=== PATIENT | female | born 1995 | race Caucasian/White ===

== ENCOUNTER → 2016-08-17 | Outpatient (CLI) | payer OTHER ==
--- NOTE | 2016-08-17 19:31 | Diagnostic Imaging Report ---
INDICATION: Size and dates. FINDINGS: A poe gestation is in transverse position. Dimensions correlate with an age 17 weeks 2 days. Sonographic date of confinement 01/23/2017. Volume of amniotic fluid is within normal limits. There is no evidence for abruption or previa. No gross abnormality at the anatomical survey limited by stage of gestation. IMPRESSION: Transverse positioning poe viable IUP measuring 17 weeks 2 days. No abnormality demonstrated. Dictated by: Dictated on workstation # [id number]
== END ==
LOC: RAD 15:59
PROVIDERS: ATTEND Family Medicine
DX: Z34.02 Encounter for supervision of normal first pregnancy, second trimester (principal); Z3A.17 17 weeks gestation of pregnancy
CPT/HCPCS: 76805

== ENCOUNTER → 2016-09-09 | Outpatient (CLI) | payer OTHER ==
--- NOTE | 2016-09-09 18:08 | Diagnostic Imaging Report ---
INDICATION: patient, survey. COMPARISON: None. FINDINGS: Single live intrauterine fetus is seen measuring 20 weeks 5 days in size with normal interval growth since the prior study. Cervical length is normal at 3.8 cm. Amniotic fluid is qualitatively normal. Heart rate is 136 beats per minute. There is some prominence of the left renal pelvis, measuring about 5 mm. There is about 3 mm in measurement for the right renal pelvis. Spine was not well visualized. Biometrical measurements are as follows: Biparietal 4.85 cm, age 20 weeks 5 days. Head circumference 18.56 cm, age 21 weeks 0 days. Abdominal circumference 15.49 cm, age 20 weeks 5 days. Femur length 3.24 cm, age 20 weeks 1 days. Sonographic estimate age: 20 weeks 5 days. Sonographic estimated date of delivery: 01/22/2017. Estimated Weight: 356 gm (+/- 52 gm). LMP percentile: 39%. heart rate: 156 beats per minute. number: 1 of 1. IMPRESSION: Single live intrauterine fetus, measuring 20 weeks 5 days in size, with normal interval growth since the prior study. There is mild prominence of the left renal pelvis, suggest followup. The spine was not well visualized. Dictated by: Dictated on workstation # [id number]
== END ==
LOC: RAD 10:51
PROVIDERS: ATTEND Family Medicine
DX: Z36 Encounter for antenatal screening of mother (principal); Z3A.20 20 weeks gestation of pregnancy
CPT/HCPCS: 76805

== ENCOUNTER → 2016-10-12 | Outpatient (CLI) | payer OTHER, MEDICAID ==
--- NOTE | 2016-10-12 15:32 | Diagnostic Imaging Report ---
INDICATION: Followup spine and renal pelvis. TECHNIQUE: Multiple real-time grayscale images were obtained over the gravid uterus. COMPARISON: 09/09/2016 FINDINGS: The heart rate is 153 beats per minute. The placenta is anterior. No placenta previa. The amniotic fluid appears adequate. The spine appears normal. The renal pelvis on the left side has AP dimension of 6 mm and on the right side AP dimension of 4 mm. IMPRESSION: The spine appears normal. There is minimal prominence of the renal pelvis particularly on the left side within normal limits however. Dictated by: Dictated on workstation # [id number]
== END ==
LOC: RAD 13:42
PROVIDERS: ATTEND Family Medicine
DX: Z36 Encounter for antenatal screening of mother (principal); Z3A.00 Weeks of gestation of pregnancy not specified
CPT/HCPCS: 76816

== ENCOUNTER 2017-01-26 06:55 | Inpatient (IN) | payer OTHER, MEDICAID ==
[2017-01-26] VITALS (25 sets, daily range): BP systolic 123–154; BP diastolic 63–121
[~2017-01-26] VITALS: Ht 160 cm; Wt 68.5 kg
[2017-01-26 08:22] LABS: KETONES,URINE 4+ (NEGATIVE); PROTEIN,URINE 2+ (NEGATIVE); UROBILINOGEN,URINE 8 MG/DL (NORMAL)
--- OUTSIDE RECORDS SUMMARY | 2017-01-26 08:23 | XMS REPORT ---
Author Author RENATA FARRAR [facility] Address [address] [place] [address] Care Team Providers Care Research Clerk Name Role Phone RENATA FARRAR Unavailable PROBLEMS Type Condition ICD9-CM Code [id number] Code Onset Dates Condition Status SNOMED Code Problem Encounter for dental examination and cleaning without abnormal findings Z01.20 Active [id number] ALLERGIES No Information SOCIAL HISTORY Never Assessed PLAN OF CARE VITAL SIGNS MEDICATIONS Unknown Medications RESULTS Name Result Date Reference Range TEST, URINE (IN HOUSE) 2016-07-23 RESULTS POSITIVE Lot # [id number] Control + Exp date 09/2017 PROCEDURES Procedure Date Ordered Result Body Site URINE TEST July 23, 2016 IMMUNIZATIONS No Known Immunizations MEDICAL (GENERAL) HISTORY Type Description Date Medical History denies Medical History due date 02/14/2017
--- OUTSIDE RECORDS SUMMARY | 2017-01-26 08:23 | XMS REPORT ---
Author Author LILY KENNEDY [facility] Address [address] [place] [address] Care Team Providers Care Representative Personal Service Name Role Phone LILY KENNEDY Unavailable PROBLEMS Type Condition ICD9-CM Code [id number]-UB Code Onset Dates Condition Status SNOMED Code Problem Encounter for dental examination and cleaning without abnormal findings Z01.20 Active [id number] ALLERGIES No Information SOCIAL HISTORY Never Assessed PLAN OF CARE VITAL SIGNS MEDICATIONS Unknown Medications RESULTS No Results PROCEDURES No Known procedures IMMUNIZATIONS No Known Immunizations MEDICAL (GENERAL) HISTORY Type Description Date Medical History denies Medical History due date 02/14/2017
--- OUTSIDE RECORDS SUMMARY | 2017-01-26 08:23 | XMS REPORT ---
Author Author LILY KENNEDY [facility] Address [address] [place] [address] Care Team Providers Care Railroad Accountant Name Role Phone LILY KENNEDY Unavailable PROBLEMS Type Condition ICD9-CM Code RGC50-LC Code Onset Dates Condition Status SNOMED Code Problem Encounter for dental examination and cleaning without abnormal findings Z01.20 Active [id number] ALLERGIES No Information SOCIAL HISTORY Never Assessed PLAN OF CARE VITAL SIGNS MEDICATIONS Unknown Medications RESULTS No Results PROCEDURES No Known procedures IMMUNIZATIONS No Known Immunizations MEDICAL (GENERAL) HISTORY Type Description Date Medical History denies Medical History due date 02/14/2017
--- OUTSIDE RECORDS SUMMARY | 2017-01-26 08:23 | XMS REPORT ---
Author Author LILY KENNEDY [facility] Address [address] [place] [address] Care Team Providers Care Train Brake Operator Name Role Phone LILY KENNEDY Unavailable PROBLEMS Type Condition ICD9-CM Code ACC02-ST Code Onset Dates Condition Status SNOMED Code Problem Encounter for dental examination and cleaning without abnormal findings Z01.20 Active [id number] ALLERGIES No Information SOCIAL HISTORY Never Assessed PLAN OF CARE Activity Details Follow Up 4 Weeks Reason: VITAL SIGNS Height 62 in 2016-08-04 Weight 124 lbs 2016-08-04 Temperature 98.2 degrees Fahrenheit 2016-08-04 Heart Rate 92 bpm 2016-08-04 Respiratory Rate 18 2016-08-04 BMI 22.68 kg/m2 2016-08-04 Blood pressure systolic 115 mmHg 2016-08-04 Blood pressure diastolic 68 mmHg 2016-08-04 MEDICATIONS Unknown Medications RESULTS Name Result Date Reference Range TSH () 2016-08-04 TSH 1.970 0.450-4.500 CBC 2016-08-04 WBC 8.2 3.4-10.8 RBC 4.60 3.77-5.28 Hemoglobin 13.7 11.1-15.9 Hematocrit 41.3 34.0-46.6 MCV 90 79-97 MCH 29.8 26.6-33.0 MCHC 33.2 31.5-35.7 RDW 14.9 12.3-15.4 Platelets 233 150-379 Neutrophils 64 Lymphs 25 Monocytes 8 Eos 3 Basos 0 Neutrophils (Absolute) 5.3 1.4-7.0 Lymphs (Absolute) 2.0 0.7-3.1 Monocytes(Absolute) 0.7 0.1-0.9 Eos (Absolute) 0.2 0.0-0.4 Baso (Absolute) 0.0 0.0-0.2 Immature Granulocytes 0 Immature Grans (Abs) 0.0 0.0-0.1 ANTIBODY SCREEN 2016-08-04 Antibody Screen Negative Negative BLOOD TYPE/RH FACTOR 2016-08-04 ABO Grouping O Rh Factor Positive RUBELLA ANTIBODIES, IgG 2016-08-04 Rubella Antibodies, IgG 3.48 Immune >0.99 CULTURE, GENITAL 2016-08-04 Genital Culture, Routine Final report Result 1 Yeast isolated. Result 2 CULTURE, URINE 2016-08-04 Urine Culture, Routine Final report Result 1 No growth GC/CHLAM PROBE (STATE) 2016-08-04 CHLAMYDIA negative GC negative TRICHOMONAS (IN HOUSE) 2016-08-04 TRICHOMONAS Negative Control + Lot # [id number] Exp date 09/10/17 URINE DRUG SCREEN (IN HOUSE) 2016-08-04 Lot # [id number] Exp date 05/02 Control + COCAINE negative AMPH negative MTD negative THC negative OPIATE negative BENZO negative PCP negative BAR negative OXY negative MAMP negative TCA negative BUP negative MDMA negative UA LONG DIP (IN HOUSE) 2016-08-04 Lot # [id number] Exp date 07/11/17 Clarity clear Color yellow Odor no GLU negative SHAN negative KET negative SG 1.020 BLO negative pH 7.0 Protein negative URO 1.0 NIT negative FRANCES negative Lot # Exp BACTERIAL VAGINOSIS (IN HOUSE) 2016-08-04 RESULTS Negative Control + Lot # [id number] Exp date 03/2017 TSH () 2016-08-04 TSH 1.970 0.450-4.500 CBC 2016-08-04 WBC 8.2 3.4-10.8 RBC 4.60 3.77-5.28 Hemoglobin 13.7 11.1-15.9 Hematocrit 41.3 34.0-46.6 MCV 90 79-97 MCH 29.8 26.6-33.0 MCHC 33.2 31.5-35.7 RDW 14.9 12.3-15.4 Platelets 233 150-379 Neutrophils 64 Lymphs 25 Monocytes 8 Eos 3 Basos 0 Neutrophils (Absolute) 5.3 1.4-7.0 Lymphs (Absolute) 2.0 0.7-3.1 Monocytes(Absolute) 0.7 0.1-0.9 Eos (Absolute) 0.2 0.0-0.4 Baso (Absolute) 0.0 0.0-0.2 Immature Granulocytes 0 Immature Grans (Abs) 0.0 0.0-0.1 ANTIBODY SCREEN 2016-08-04 Antibody Screen Negative Negative BLOOD TYPE/RH FACTOR 2016-08-04 ABO Grouping O Rh Factor Positive RUBELLA ANTIBODIES, IgG 2016-08-04 Rubella Antibodies, IgG 3.48 Immune >0.99 CULTURE, GENITAL 2016-08-04 Genital Culture, Routine Final report Result 1 Yeast isolated. Result 2 CULTURE, URINE 2016-08-04 Urine Culture, Routine Final report Result 1 No growth GC/CHLAM PROBE (STATE) 2016-08-04 CHLAMYDIA negative GC negative SYPHILIS (STATE) 2016-08-04 TRICHOMONAS (IN HOUSE) 2016-08-04 TRICHOMONAS Negative Control + Lot # [id number] Exp date 09/10/17 URINE DRUG SCREEN (IN HOUSE) 2016-08-04 Lot # [id number] Exp date 05/02 Control + COCAINE negative AMPH negative MTD negative THC negative OPIATE negative BENZO negative PCP negative BAR negative OXY negative MAMP negative TCA negative BUP negative MDMA negative UA LONG DIP (IN HOUSE) 2016-08-04 Lot # [id number] Exp date 07/11/17 Clarity clear Color yellow Odor no GLU negative SHAN negative KET negative SG 1.020 BLO negative pH 7.0 Protein negative URO 1.0 NIT negative FRANCES negative Lot # Exp HIV (STATE) 2016-08-04 HEP B SURFACE ANTIGEN (STATE) 2016-08-04 HEP B ANTIBODY negative HEP B ANTIBODY ([facility]) HEP B ANTIBODY (STATE) BACTERIAL VAGINOSIS (IN HOUSE) 2016-08-04 RESULTS Negative Control + Lot # [id number] Exp date 03/2017 TSH () 2016-08-04 TSH 1.970 0.450-4.500 CBC 2016-08-04 WBC 8.2 3.4-10.8 RBC 4.60 3.77-5.28 Hemoglobin 13.7 11.1-15.9 Hematocrit 41.3 34.0-46.6 MCV 90 79-97 MCH 29.8 26.6-33.0 MCHC 33.2 31.5-35.7 RDW 14.9 12.3-15.4 Platelets 233 150-379 Neutrophils 64 Lymphs 25 Monocytes 8 Eos 3 Basos 0 Neutrophils (Absolute) 5.3 1.4-7.0 Lymphs (Absolute) 2.0 0.7-3.1 Monocytes(Absolute) 0.7 0.1-0.9 Eos (Absolute) 0.2 0.0-0.4 Baso (Absolute) 0.0 0.0-0.2 Immature Granulocytes 0 Immature Grans (Abs) 0.0 0.0-0.1 ANTIBODY SCREEN 2016-08-04 Antibody Screen Negative Negative BLOOD TYPE/RH FACTOR 2016-08-04 ABO Grouping O Rh Factor Positive RUBELLA ANTIBODIES, IgG 2016-08-04 Rubella Antibodies, IgG 3.48 Immune >0.99 CULTURE, GENITAL 2016-08-04 Genital Culture, Routine Final report Result 1 Yeast isolated. Result 2 CULTURE, URINE 2016-08-04 Urine Culture, Routine Final report Result 1 No growth GC/CHLAM PROBE (STATE) 2016-08-04 CHLAMYDIA negative GC negative SYPHILIS (STATE) 2016-08-04 TRICHOMONAS (IN HOUSE) 2016-08-04 TRICHOMONAS Negative Control + Lot # [id number] Exp date 09/10/17 URINE DRUG SCREEN (IN HOUSE) 2016-08-04 Lot # [id number] Exp date 05/02 Control + COCAINE negative AMPH negative MTD negative THC negative OPIATE negative BENZO negative PCP negative BAR negative OXY negative MAMP negative TCA negative BUP negative MDMA negative UA LONG DIP (IN HOUSE) 2016-08-04 Lot # [id number] Exp date 07/11/17 Clarity clear Color yellow Odor no GLU negative SHAN negative KET negative SG 1.020 BLO negative pH 7.0 Protein negative URO 1.0 NIT negative FRANCES negative Lot # Exp date HIV (STATE) 2016-08-04 HEP B SURFACE ANTIGEN (STATE) 2016-08-04 HEP B ANTIBODY negative HEP B ANTIBODY ([facility]) HEP B ANTIBODY ([facility]) BACTERIAL VAGINOSIS (IN HOUSE) 2016-08-04 RESULTS Negative Control + Lot # [id number] Exp date 03/2017 PROCEDURES Procedure Date Ordered Result Body Site BLOOD TYPING, ABO August 04, 2016 BLOOD TYPING, RH (D) August 04, 2016 CULTURE, BACTERIA, OTHER August 04, 2016 COMPLETE CBC W/AUTO DIFF WBC August 04, 2016 No Charge August 04, 2016 URINE CULTURE/COLONY COUNT August 04, 2016 RUBELLA ANTIBODY August 04, 2016 MAXWELL VAG, DNA, DIR PROBE August 04, 2016 TRICHOMONAS ASSAY W/OPTIC August 04, 2016 RBC ANTIBODY SCREEN August 04, 2016 URINALYSIS, AUTO, W/O SCOPE August 04, 2016 VENIPUNCT, ROUTINE* August 04, 2016 ASSAY THYROID STIM HORMONE August 04, 2016 IMMUNIZATIONS No Known Immunizations MEDICAL (GENERAL) HISTORY Type Description Date Medical History denies Medical History due date 02/14/2017
--- OUTSIDE RECORDS SUMMARY | 2017-01-26 08:23 | XMS REPORT ---
Author Author LILY KENNEDY [facility] Address [address] [place] [address] Care Team Providers Care Stable Helper Name Role Phone LILY KENNEDY Unavailable PROBLEMS Type Condition ICD9-CM Code YVG78-DR Code Onset Dates Condition Status SNOMED Code Problem Encounter for dental examination and cleaning without abnormal findings Z01.20 Active [id number] ALLERGIES No Information SOCIAL HISTORY Never Assessed PLAN OF CARE VITAL SIGNS MEDICATIONS Unknown Medications RESULTS No Results PROCEDURES No Known procedures IMMUNIZATIONS No Known Immunizations MEDICAL (GENERAL) HISTORY Type Description Date Medical History denies Medical History due date 02/14/2017
[2017-01-26] MEDS ORDERED: D5 LR IV SOLUTION 1,000 ML IV SCH (08:31)
[2017-01-26] MEDS ORDERED: PREN1.4T2 PO (08:37)
[2017-01-26 09:23] LABS: LEUKOCYTE ESTERASE ,URINE 3+ (NEGATIVE); NITRITE,URINE POSITIVE (NEGATIVE); PH,URINE 6 (5-9)
[2017-01-26 09:29] LABS: BASOPHILS % (AUTO) 0 % (0-10); EOSINOPHILS % (AUTO) 0 % (0-10); LYMPHOCYTES # (AUTO) 1.4 X 10^3 (1.0-4.0); LYMPHOCYTES % (AUTO) 12 % (12-44); MEAN CORPUSCULAR HEMOGLOBIN 26 PG (25-34); MEAN CORPUSCULAR HGB CONC 33 G/DL (32-36); MEAN CORPUSCULAR VOLUME 80 FL (80-99); MEAN PLATELET VOLUME 10.5 FL (7.4-10.4); MONOCYTES # (AUTO) 0.9 X 10^3 (0.0-1.0); MONOCYTES % (AUTO) 8 % (0-12); NEUTROPHILS # (AUTO) 9.2 X 10^3 (1.8-7.8); NEUTROPHILS % (AUTO) 80 % (42-75); PLATELET COUNT 205 10^3/uL (130-400); RED BLOOD COUNT 3.99 10^6/uL (4.35-5.85); RED CELL DISTRIBUTION WIDTH 14.4 % (10.0-14.5); WHITE BLOOD COUNT 11.6 10^3/uL (4.3-11.0)
[2017-01-26 09:33] LABS: BILIRUBIN,URINE 2+ (NEGATIVE); WBC,URINE 50-100 /HPF
[2017-01-26] MEDS ORDERED: OXYTOCIN/NORMAL SALINE 500 ML IV SCH ×2 (10:43→16:13)
[2017-01-26] MEDS ORDERED: cefTRIAXone INJECTION 1,000 MG in NS (IVPB) 50 ML IV ONE (10:45)
[2017-01-26] MEDS ORDERED: SUFENTA 0.6MCG/ML BUPIVA 0.125 0 ML ONE (12:22)
[2017-01-26] MEDS ORDERED: LACTATED RINGERS 1,000 ML IV ONE (12:22)
[2017-01-26] MEDS ORDERED: BUPIVACAINE 0.25% 30 ML (SENSORCAINE) VIAL ONE (13:18)
[2017-01-26] MEDS ORDERED: fentaNYL INJECTION 100 MCG/2 ML AMP ONE (13:18)
[2017-01-26] MEDS ORDERED: CATHETER FLUSH 10 ML SYR IV SCH ×2 (14:00→22:00)
[2017-01-26] MEDS ORDERED: MINERAL OIL CONCENTRATE 99.9% 15 ML UDC ONE (14:03)
[2017-01-26] MEDS ORDERED: NALOXONE 0.4 MG/ML 1 ML (NARCAN) VIAL IV PRN ×2 (15:15)
[2017-01-26] MEDS ORDERED: METOCLOPRAMIDE INJ 10 MG/2 ML (REGLAN) IV PRN (15:15)
[2017-01-26] MEDS ORDERED: diphenhydrAMINE 50 MG/ML INJ (BENADRYL) IV PRN (15:15)
[2017-01-26] MEDS ORDERED: ONDANSETRON 4 MG/2 ML (SDV) Z0FRAN IV PRN (15:15)
[2017-01-26] MEDS ORDERED: WITCH HAZEL(TUCKS) 40 EA JAR TOP PRN (16:15)
[2017-01-26] MEDS ORDERED: MEASLES,MUMPS,RUBELLA 1 EA INJ SQ ONE (16:15)
[2017-01-26] MEDS ORDERED: TETANUS,DIPTH,PERTUSS P/F (BOOSTRIX) 0.5 ML VIAL IM ONE (16:15)
[2017-01-26] MEDS ORDERED: BENZOCAINE/MENTHOL (DERMOPLAST) 56 ML CAN TP PRN (16:15)
--- NOTE | 2017-01-26 16:25 | OB Labor & Delivery Record ---
Vag Delivery Note Vag Delivery Note Date of Delivery: 01/26/17 Preoperative Diagnosis: Debra Colindres is a (21 /Para 1 / , Gestational Age (wks)40.3 admitted for active labor Postoperative Diagnosis: Same Surgeon: LILY KENNEDY Life Advisor: None Anesthesia: spinal Delivery Type: Vacuum Assisted vaginal delivery Findings: Term female Viable Female , apgars 8/9, weight 8#0 Lacerations: 2nd degree perineal laceration Intact placenta with 3 vessel cord. Nuchal cord x2, body cord or shoulder dystocia Estimated Blood Loss: 325 ml Complications: variable decelerations. Thin-meconium. Condition: Stable Description of Procedure: The patient is a 21 yo G1 now P1 @ 40.3 wga who presented in active labor. She was admitted and informed consent was obtained. Her labor course was unremarkable. She progressed to complete dilatation and began to push. She was then set up for delivery. The 's head was delivered atraumatically in the LAVON position after vaccum placement for decelerations. Vacuum was placed during 2 contractions and there were no pop offs. Vacuum was then removed after delivery of head. The shoulders and remainder of the infant's body were then delivered without difficulty at 1524. Upon delivery, the head was held below the level of the perineum and the mouth and nares were bulb suctioned. The cord was doubly clamped and cut by FOB and the infant was handed off to the pediatric staff. An intact placenta with 3- vessel cord delivered via Krishna and there was found to be minimal bleeding.~ Vigorous fundal massage was performed and the fundus was found to be firm. IV oxytocin was given. Examination of the vagina and perineum revealed a 2nd laceration repaired in the usual fashion with 3-0 vicryl suture. Following the repair, sponge, instrument and needle counts were correct. Mom and baby were both in stable condition in the labor suite. Vitals - Labs Vital Signs - I&O Vital Signs Date Time Temp Pulse Resp B/P (MAP) Pulse Ox O2 Delivery O2 Flow Rate FiO2 01/26/17 11:45 102 143/72 100 01/26/17 11:30 99 14 130/80 100 01/26/17 11:00 99.4 107 14 131/80 100 01/26/17 10:00 100.5 100 18 123/79 100 01/26/17 07:15 99.0 112 16 142/88 99 Labs Laboratory Tests 01/26/17 09:00: Urine Color YELLOW, Urine Clarity SLIGHTLY CLOUDY, Urine pH 6, Urine Specific [place] 1.025H, Urine Protein 2+H, Urine Glucose (UA) NEGATIVE, Urine Ketones 4+ H, Urine Nitrite POSITIVEH, Urine Bilirubin 2+H, Urine Urobilinogen 8H, Urine Leukocyte Esterase 3+H, Urine RBC (Auto) 5+H, Urine RBC NONE, Urine WBC 50-100H , Urine Squamous Epithelial Cells 10-25H, Urine Crystals NONE, Urine Bacteria TRACE, Urine Casts NONE, Urine Mucus NEGATIVE, Urine Culture Indicated YES 01/26/17 09:21: White Blood Count 11.6H, Red Blood Count 3.99L, Hemoglobin 10.5L, Hematocrit 32L , Mean Corpuscular Volume 80, Mean Corpuscular Hemoglobin 26, Mean Corpuscular Hemoglobin Concent 33, Red Cell Distribution Width 14.4, Platelet Count 205, Mean Platelet Volume 10.5H, Neutrophils (%) (Auto) 80H, Lymphocytes (%) (Auto) 12, Monocytes (%) (Auto) 8, Eosinophils (%) (Auto) 0, Basophils (%) (Auto) 0, Neutrophils # (Auto) 9.2H, Lymphocytes # (Auto) 1.4, Monocytes # (Auto) 0.9, Eosinophils # (Auto) 0.0, Basophils # (Auto) 0.0 LILY KENNEDY MD Jan 26, 2017 16:25
[2017-01-26] MEDS: IBUPROFEN 600 MG (MOTRIN) TAB PO SCH (18:58)
[2017-01-27 00:55] VITALS: BP_SYST 121; BP_DIAS 8; BP_DIAS 80
[2017-01-27] MEDS: IBUPROFEN 600 MG (MOTRIN) TAB PO SCH ×5 (00:55→23:57)
[2017-01-27 03:34] VITALS: BP 118/73
[2017-01-27 06:09] LABS: BASOPHILS % (AUTO) 0 % (0-10); EOSINOPHILS % (AUTO) 0 % (0-10); LYMPHOCYTES # (AUTO) 1.8 X 10^3 (1.0-4.0); LYMPHOCYTES % (AUTO) 16 % (12-44); MEAN CORPUSCULAR HEMOGLOBIN 26 PG (25-34); MEAN CORPUSCULAR HGB CONC 32 G/DL (32-36); MEAN CORPUSCULAR VOLUME 81 FL (80-99); MEAN PLATELET VOLUME 11.2 FL (7.4-10.4); MONOCYTES # (AUTO) 1.3 X 10^3 (0.0-1.0); MONOCYTES % (AUTO) 12 % (0-12); NEUTROPHILS # (AUTO) 7.7 X 10^3 (1.8-7.8); NEUTROPHILS % (AUTO) 71 % (42-75); PLATELET COUNT 209 10^3/uL (130-400); RED BLOOD COUNT 2.93 10^6/uL (4.35-5.85); RED CELL DISTRIBUTION WIDTH 14.4 % (10.0-14.5); WHITE BLOOD COUNT 10.8 10^3/uL (4.3-11.0)
[2017-01-27 08:25] VITALS: BP 125/82
[2017-01-27] MEDS ORDERED: DIBUCAINE (NUPERCAINAL) 1% OINT 30 GM TOP PRN (11:15)
[2017-01-27 12:00] VITALS: BP 115/79
--- NOTE | 2017-01-27 16:47 | Anesthesia-Regional Post-Op ---
Regional Patient Condition Mental Status: Alert, Oriented x3 Circulation: Same as Pre-Op Headache: Absent Sensation: Full Recovery Motor Block: Absent Post Op Complications Complications None Follow Up Care/Instructions Patient Instructions None needed. Anesthesia/Patient Condition Patient is doing well, no complaints, stable vital signs, no apparent adverse anesthesia problems. GÓMEZ CLEARY DO Jan 27, 2017 16:47
[2017-01-27] MEDS: FERROUS SULF 325 MG (IRON) TAB PO SCH (17:54)
[2017-01-27 17:55] VITALS: BP 122/76
--- NOTE | 2017-01-27 18:44 | Progress Note (SOAP) ---
Subjective Subjective/Events-last exam Tmax 100.7. Asymptomatic. Hgb 7.7, denies dizziness, shortness of breath or pain. Ambulating without difficulty. going well per her report. Review of Systems Date Seen by Provider: Jan 27, 2017 Time Seen by Provider: 09:25 Objective Exam Last Set of Vital Signs Vital Signs Date Time Temp Pulse Resp B/P (MAP) Pulse Ox O2 Delivery O2 Flow Rate FiO2 01/27/17 17:55 99.3 84 16 122/76 98 Room Air Capillary Refill : General: Alert, No Acute Distress Lungs: Clear to Auscultation, Normal Air Movement Heart: Regular Rate, No Murmurs Psych/Mental Status: Mental Status NL, Mood NL Results/Procedures Lab Laboratory Tests 01/27/17 05:25: White Blood Count 10.8, Red Blood Count 2.93L, Hemoglobin 7.7#L, Hematocrit 24L , Mean Corpuscular Volume 81, Mean Corpuscular Hemoglobin 26, Mean Corpuscular Hemoglobin Concent 32, Red Cell Distribution Width 14.4, Platelet Count 209, Mean Platelet Volume 11.2H, Neutrophils (%) (Auto) 71, Lymphocytes (%) (Auto) 16 , Monocytes (%) (Auto) 12, Eosinophils (%) (Auto) 0, Basophils (%) (Auto) 0, Neutrophils # (Auto) 7.7, Lymphocytes # (Auto) 1.8, Monocytes # (Auto) 1.3H, Eosinophils # (Auto) 0.0, Basophils # (Auto) 0.0 Microbiology 01/26/17 Urine Culture - Preliminary, Resulted Assessment/Plan Assessment/Plan Plan s/p spontaneous vaginal delivery- routine care fever- WBC decreased and she is asymptomatic with one elevated temperature , will monitor closely asymptomatic anemia- iron BID MADAN KELLEY MD Jan 27, 2017 6:44 pm
[2017-01-27 23:57] VITALS: BP 115/72
[2017-01-28 06:50] VITALS: BP 113/64
[2017-01-28] MEDS: IBUPROFEN 600 MG (MOTRIN) TAB PO SCH ×2 (06:50→13:04)
[2017-01-28 08:58] VITALS: BP 125/72
[2017-01-28] MEDS: FERROUS SULF 325 MG (IRON) TAB PO SCH (09:00)
[2017-01-28] MEDS ORDERED: DOCU100C37 PO (13:25)
[2017-01-28] MEDS ORDERED: IBUP-1773 PO (13:25)
[2017-01-28] MEDS ORDERED: FERR-74 PO (13:25)
--- NOTE | 2017-01-28 13:27 | Discharge Instructions ---
Discharge Inst-Women's Serv Depart Medications New, Converted or Re-Newed RX: Transmitted to Pharmacy New Medications: Docusate Sodium (Docusate Sodium) 100 Mg Capsule 100 MG PO DAILY, #30 CAP 0 Refills Ferrous Sulfate (Ferrous Sulfate) 325 Mg Tablet 325 MG PO BID WITH MEALS, #60 TAB 0 Refills Ibuprofen (Ibuprofen) 600 Mg Tablet 600 MG PO Q6H PRN for PAIN-MILD TO MODERATE, #60 TAB 0 Refills Continued Medications: Comb No.42/Folic Acid (Prena1 Chew Tablet) 1.4 Mg Tab.ch.bph 1.4 MG PO DAILY Follow Up/Instructions Goal/Follow Up: Follow up with Dr. Ross in 6 weeks for visit. Activity Activity: Activity as Tolerated (avoid strenuous activity x 6 weeks) Driving Instructions: You May Drive NO SMOKING: NO SMOKING Diet Discharge Diet: No Restrictions Symptoms to Report to : Swelling Increased, Bleeding Excessive, Pain/ Pressure in Chest, Vaginal Bleeding Increase, Cramps in Feet or Legs, Vaginal Discharge Foul, Dizziness/Fainting, Shortness of Breath For Any Problems or Questions: Contact Your Physician Copies To 1: LILY ROSS MD, BETHANY N MD Jan 28, 2017 13:27
--- NOTE | 2017-01-28 13:28 | Discharge Summary ---
Diagnosis/Chief Complaint Date of Admission Jan 26, 2017 at 7:55 am Date of Discharge Jan 28, 2017 Admission Diagnosis Admission Diagnosis Term intrauterine at 39 weeks Active labor Discharge Diagnosis s/p vacuum assisted vaginal delivery with second degree laceration repair- course remarkable for low fever asymptomatic with one elevated temp after delivery, resolved with no intervention and afebrile > 24 hours before d/c anemia, asymptomatic- significant anemia (hgb 7.7), sent with iron sulfate BID and docusate Chief Complaint/HPI Chief Complaint/HPI 21 yo G1 at 39 weeks presented to Labor and Delivery with contractions found to be in active labor. Discharge Summary-Simple/Stand Procedures Vacuum assisted vaginal delivery Discharge Physical Examination Allergies: Coded Allergies: No Known Drug Allergies (Unverified , 01/26/17) Vitals & I&Os Vital Sign - Last 12Hours Date Time Temp Pulse Resp B/P (MAP) Pulse Ox O2 Delivery O2 Flow Rate FiO2 01/28/17 08:58 98.4 97 18 125/72 98 Room Air General Appearance: Alert, No Acute Distress Respiratory: Clear to Auscultation, Normal Air Movement Cardiovascular: Regular Rate, No Murmurs Abdominal: No Tenderness, Other (fundus firm below umbilicus) Neuro: Normal Speech Psych/Mental Status: Mental Status NL Hospital Course See final discharge diagnosis. Labs Laboratory Tests Test 01/27/17 05:25 Range/Units White Blood Count 10.8 4.3-11.0 10^3/uL Red Blood Count 2.93 L 4.35-5.85 10^6/uL Hemoglobin 7.7 #L 11.5-16.0 G/DL Hematocrit 24 L 35-52 % Mean Corpuscular Volume 81 80-99 FL Mean Corpuscular Hemoglobin 26 25-34 PG Mean Corpuscular Hemoglobin Concent 32 32-36 G/DL Red Cell Distribution Width 14.4 10.0-14.5 % Platelet Count 209 130-400 10^3/uL Mean Platelet Volume 11.2 H 7.4-10.4 FL Neutrophils (%) (Auto) 71 42-75 % Lymphocytes (%) (Auto) 16 12-44 % Monocytes (%) (Auto) 12 0-12 % Eosinophils (%) (Auto) 0 0-10 % Basophils (%) (Auto) 0 0-10 % Neutrophils # (Auto) 7.7 1.8-7.8 X 10^3 Lymphocytes # (Auto) 1.8 1.0-4.0 X 10^3 Monocytes # (Auto) 1.3 H 0.0-1.0 X 10^3 Eosinophils # (Auto) 0.0 0.0-0.3 10^3/uL Basophils # (Auto) 0.0 0.0-0.1 10^3/uL Discharge Instructions to patient/family Please see electronic discharge instructions given to patient. Discharge Medications Reviewed and agree with Discharge Medication list on patient's Discharge Instruction sheet Copy Copies To 1: LILY KENNEDY MD, BETHANY N MD Jan 28, 2017 1:28 pm
[2017-01-28 14:42] VITALS: BP 135/84
== END 2017-01-28 17:00 | disposition home or self-care (01) | DRG 775 ==
LOC: WSo 06:55 → LDRP 06:55 → WSo 07:54 → LDRP 07:55
PROVIDERS: ADMIT Family Medicine; ATTEND Family Medicine
PROC: 10D07Z6 Extraction of Products of Conception, Vacuum, Via Natural or Artificial Opening (ICD-10-PCS; principal; 2017-01-26)
DX: O70.1 Second degree perineal laceration during delivery (principal); O90.81 Anemia of the puerperium; D64.9 Anemia, unspecified; O69.81X0 Labor and delivery complicated by cord around neck, without compression, not applicable or unspecified; Z37.0 Single live birth; Z3A.40 40 weeks gestation of pregnancy
CPT/HCPCS: 36415; 81000; 85025; 86850; 86900; 86901; 87088; 99212

== ENCOUNTER → 2019-08-02 | Outpatient (CLI) | payer OTHER, MEDICAID ==
[~2019-08-02] MED LIST: DOCU100C37 PO; FERR325T18 PO; IBUP-1773 PO; PREN1.4T2 PO
[2019-08-02 12:45] LABS: BASOPHILS % (AUTO) 0 % (0-10); EOSINOPHILS # (AUTO) 0.1 10^3/uL (0.0-0.3); EOSINOPHILS % (AUTO) 2 % (0-10); HEMATOCRIT 27 % (35-52); HEMOGLOBIN 8.4 G/DL (11.5-16.0); LYMPHOCYTES # (AUTO) 1.9 X 10^3 (1.0-4.0); LYMPHOCYTES % (AUTO) 26 % (12-44); MEAN CORPUSCULAR HEMOGLOBIN 22 PG (25-34); MEAN CORPUSCULAR HGB CONC 31 G/DL (32-36); MEAN CORPUSCULAR VOLUME 70 FL (80-99); MEAN PLATELET VOLUME 10.1 FL (7.4-10.4); MONOCYTES # (AUTO) 0.7 X 10^3 (0.0-1.0); MONOCYTES % (AUTO) 10 % (0-12); NEUTROPHILS # (AUTO) 4.5 X 10^3 (1.8-7.8); NEUTROPHILS % (AUTO) 62 % (42-75); PLATELET COUNT 249 10^3/uL (130-400); RED CELL DISTRIBUTION WIDTH 16.5 % (10.0-14.5); WHITE BLOOD COUNT 7.2 10^3/uL (4.3-11.0)
[2019-08-02 13:04] LABS: ALANINE AMINOTRANSFERASE 10 U/L (0-55); ALBUMIN 3.1 GM/DL (3.2-4.5); ALKALINE PHOSPHATASE 322 U/L (40-136); BILIRUBIN,TOTAL 1.2 MG/DL (0.1-1.0); BUN/CREATININE RATIO 9; CALCIUM 8.5 MG/DL (8.5-10.1); CARBON DIOXIDE 20 MMOL/L (21-32); CHLORIDE 108 MMOL/L (98-107); CREATININE SERUM 0.69 MG/DL (0.60-1.30); GFR ESTIMATED > 60; GLUCOSE 75 MG/DL (70-105); POTASSIUM 4.2 MMOL/L (3.6-5.0); SODIUM 137 MMOL/L (135-145); TOTAL PROTEIN 6.2 GM/DL (6.4-8.2)
== END ==
LOC: LAB 12:20
PROVIDERS: ATTEND Family Medicine
DX: O16.3 Unspecified maternal hypertension, third trimester (principal); Z3A.00 Weeks of gestation of pregnancy not specified
CPT/HCPCS: 36415; 80053; 82570; 83615; 84156; 84550; 85025

== ENCOUNTER 2019-08-03 10:02 | Inpatient (IN) | payer OTHER, MEDICAID ==
[2019-08-03] VITALS (53 sets, daily range): BP systolic 112–151; BP diastolic 8–88
[~2019-08-03] VITALS: Ht 157.5 cm; Wt 73.8 kg
--- NOTE | 2019-08-03 10:10 | NUR ---
COLBY MUNGUIA presented to unit via ambulation from ED, accompanied by S.O., with c/o LABOR. COLBY MUNGUIA weighed, gowned, voided, and to bed. EFHM and TOCO applied, VS taken. COLBY MUNGUIA oriented to bed controls, call light, TV, heat, and A/C controls.
--- NOTE | 2019-08-03 10:15 | NUR ---
Dr Ross called for orders. already aware of pt situation as pt came from clinic.
[2019-08-03] MEDS ORDERED: OXYTOCIN PRE-MIX DRIP 500 ML IV SCH ×2 (10:27→20:26)
[2019-08-03] MEDS ORDERED: MINERAL OIL CONCENTRATE 99.9% 15 ML UDC TOP PRN (10:30)
--- NOTE | 2019-08-03 10:44 | History & Physical-OB ---
OB - Chief Complaint & HPI Date/Time Date of Admission: Date of Admission: Date seen by a Provider: August 03, 2019 Time Seen by a Provider: 10:40 Chief Complaint/History OB-Reason for Admission/Chief: Induction of Labor (PIH) Hx : 2 Hx Para: 1 Expected Date of Delivery: August 08, 2019 Gestational Age in Weeks: 39 Gestational Age in Days: 2 Indication for induction: medical complication History of Labs O+, Ab neg Rub Imm GC/Chyl neg HepB/HIV/RPR NR Normal 1 hr GTT GBS neg Allergies and Home Medications Allergies Coded Allergies: No Known Drug Allergies (Unverified , 01/26/17) Home Medications Docusate Sodium 100 Mg Capsule, 100 MG PO DAILY Prescribed by: MADAN KELLEY on 01/28/17 1325 Ferrous Sulfate 325 Mg Tablet, 325 MG PO BID WITH MEALS Prescribed by: MADAN KELLEY on 01/28/17 1325 Ibuprofen 600 Mg Tablet, 600 MG PO Q6H PRN for PAIN-MILD TO MODERATE Prescribed by: MADAN KELLEY on 01/28/17 1325 Comb No.42/Folic Acid 1.4 Mg Tab.ch.bph, 1.4 MG PO DAILY, (Reported) Patient Home Medication List Home Medication List Reviewed: Yes OB - History Hx of Present Care: Yes Ultrasounds: Normal mid trimester US Obstetrical Complications: Gestational Hypertension (Onset 1 week ago with increasing swelling) Medical Complications: None Obstetrical History Hx : 2 Hx Para: 1 Number of Living Children: 1 Delivery History Adverse Rxn to Tranfusion: No Patient Past Medical History None Social History/Family History HIV/AIDS: No Recent Infectious Disease Expo: No Sexually Transmitted Disease: No Alcohol Use: Denies Use Recreational Drug Use: No Immunizations Hepatitis A: Yes Hepatitis B: Yes Tetanus Booster (TDap): Less than 5yrs Date of Influenza Vaccine: Dec 29, 2016 Rubella: immune RPR/VDRL: Negative GBS Status: Negative HBsAG: Negative OB - Admission Exam Physical Exam HEENT: NCAT Heart: Rhythm Normal Lungs: Clear Abdomen: Gravid Cervical Dilatation: 4cm Effacement: 75% Station: 0 Membranes: Intact Accelerations: Accelerations Present Decelerations: No Decelerations Contractions on Admission: 6-10 Minutes Apart Intensity: Moderate Lyons Scoring Tool (Modified) Dilation (cm): 3-4cm (2) Effacement (%): 51-79% (2) Descent/Station: -1,0 (2) Cervix Consistency: Medium(1) Cervix Position: Middle/Mid-Position (1) Add 1 point for: Each previous vaginal delivery (1) Lyons Score: 7 Labs Laboratory Tests Test 08/03/19 10:25 Range/Units OB - Assessment/Plan/Diagnosis Assessment Assessment: induction of labor Admission Dx Induced HTN Third Trimester 39 week gestation Admission Status: Inpatient Order (span 2 midnights) Reason for Inpatient Admission: Labor Plan Plan: Induction Other Plan 24 yo @39.2 wga here for IOL for PIH Plan - AROM - Pitocin Protocol - GBS neg Copy Copies To 1: LILY KENNEDY MD, HOLLY R MD August 03, 2019 10:44
[2019-08-03] MEDS: D5 LR IV SOLUTION 1,000 ML IV SCH ×2 (10:45→18:33)
--- NOTE | 2019-08-03 10:45 | NUR ---
#20g IV to Rt. FA x1 attempt by this RN. site patent, secured with [employer]. admission labs collected from site prior to IVF's infusing. see eMar for further.
[2019-08-03 11:14] LABS: BASOPHILS % (AUTO) 0 % (0-10); EOSINOPHILS # (AUTO) 0.1 10^3/uL (0.0-0.3); EOSINOPHILS % (AUTO) 1 % (0-10); HEMATOCRIT 27 % (35-52); HEMOGLOBIN 8.4 G/DL (11.5-16.0); LYMPHOCYTES # (AUTO) 1.8 X 10^3 (1.0-4.0); LYMPHOCYTES % (AUTO) 21 % (12-44); MEAN CORPUSCULAR HEMOGLOBIN 21 PG (25-34); MEAN CORPUSCULAR HGB CONC 31 G/DL (32-36); MEAN CORPUSCULAR VOLUME 70 FL (80-99); MONOCYTES # (AUTO) 0.7 X 10^3 (0.0-1.0); MONOCYTES % (AUTO) 8 % (0-12); NEUTROPHILS # (AUTO) 5.8 X 10^3 (1.8-7.8); NEUTROPHILS % (AUTO) 69 % (42-75); PLATELET COUNT 247 10^3/uL (130-400); RED CELL DISTRIBUTION WIDTH 16.7 % (10.0-14.5); WHITE BLOOD COUNT 8.3 10^3/uL (4.3-11.0)
[2019-08-03] MEDS ORDERED: CATHETER FLUSH 10 ML SYR IV SCH ×2 (14:00→22:00)
--- NOTE | 2019-08-03 15:02 | NUR ---
notified of 8.4 Hgb.
[2019-08-03] MEDS ORDERED: fentaNYL 2 mcg/ml BUPIVA 0.125 100 ML ONE (16:57)
[2019-08-03] MEDS ORDERED: LACTATED RINGERS 1,000 ML IV ONE (16:57)
--- NOTE | 2019-08-03 16:58 | NUR ---
report given to BLAZE Foster.
[2019-08-03] MEDS ORDERED: LIDOCAINE/EPI 2% 1:200,00 (XYLOCAINE) 20 ML VIAL ONE (17:55)
[2019-08-03] MEDS ORDERED: LACTATED RINGERS 1,000 ML IV SCH (18:01)
[2019-08-03] MEDS ORDERED: METOCLOPRAMIDE INJ 10 MG/2 ML (REGLAN) IV PRN (18:15)
[2019-08-03] MEDS ORDERED: EPIDURAL (fentaNYL 2 MCG/ML BUPIVA 0.125%)100 ML BAG EPI SCH (18:15)
[2019-08-03] MEDS ORDERED: NALOXONE 0.4 MG/ML 1 ML (NARCAN) VIAL IV PRN ×2 (18:15)
[2019-08-03] MEDS ORDERED: ONDANSETRON 4 MG/2 ML (SDV) Z0FRAN IV PRN (18:15)
[2019-08-03] MEDS ORDERED: diphenhydrAMINE 50 MG/ML INJ (BENADRYL) IV PRN (18:15)
[2019-08-03] MEDS ORDERED: MISOPROSTOL 200 MCG (CYTOTEC) TABLET ONE (19:48)
--- NOTE | 2019-08-03 20:20 | NUR ---
2020: Pericare provided for pt. Bed put back together and pt. taken out of stirrups. Fundus massaged at this time. Fundus is firm and one under umbilicus. Minimal bleeding and no clots noted. 2029: Fundus massaged at this time. Fundus is firm and one under umbilicus. Minimal bleeding and no clots noted. 2044: Fundus massaged at this time. Fundus is firm and one under umbilicus. Minimal bleeding and no clots noted. 2100: Fundus massaged at this time. Fundus is firm and one under umbilicus. Minimal bleeding and no clots noted. 2129: Fundus massaged at this time. Fundus is firm and one under umbilicus. Minimal bleeding and no clots noted. 2149: Fundus massaged at this time. Fundus is firm and one under umbilicus. Minimal bleeding and no clots noted. Epidural removed at this time. Tip intact.
--- NOTE | 2019-08-03 20:26 | OB Labor & Delivery Record ---
Vag Delivery Note Vag Delivery Note Date of Delivery: 08/03/19 Preoperative Diagnosis: Debra Colindres is a (24 /Para 2 / 1, Gestational Age (wks)39.2 here for IOL for PIH Postoperative Diagnosis: Same Surgeon: LILY KENNEDY Drawing Press Operator: None Anesthesia: Epidural Delivery Type: @ 1950 Findings: Viable male , apgars 9/9, weight 4105 grams, 9#1 Lacerations: 2nd degree perineal laceration Intact placenta with 3 vessel cord. Nuchal cord x1, No body cord or shoulder dystocia Cytotec 800 mcg placed for hemorrhage prophylaxis Estimated Blood Loss: 200 ml Complications: None Condition: Stable Description of Procedure: The patient is a 24 year old female who presented for IOL for PIH. She was admitted and informed consent was obtained. Her labor course was unremarkable. She progressed to complete dilatation and began to push. She was then set up for delivery. The 's head was delivered atraumatically in the LAVON position, nuchal cord x 1 reduced after delivery of head. The shoulders and remainder of the 's body were then delivered without difficulty. Upon delivery, the head was held below the level of the perineum and the mouth and nares were bulb suctioned. The cord was doubly clamped and cut by FOB after 2 min delay and the infant was placed on maternal abdomen and attended to by the pediatric staff. An intact placenta with 3-vessel cord delivered via Krishna @ 1955 and there was found to be minimal bleeding.~ Vigorous fundal massage was performed and the fundus was found to be firm. IV oxytocin was given. Examination of the vagina and perineum revealed a 2nd degree laceration repaired in the usual fashion with 3-0 Reped suture. Following the repair, sponge, instrument and needle counts were correct. Mom and baby were both in stable condition in the labor suite. Vitals - Labs Vital Signs - I&O Vital Signs Date Time Temp Pulse Resp B/P (MAP) Pulse Ox O2 Delivery O2 Flow Rate FiO2 08/03/19 17:00 18 Room Air 08/03/19 16:53 104 18 135/79 (97) Room Air 08/03/19 16:45 104 18 135/79 (97) Room Air 08/03/19 16:30 37.1 95 18 130/76 (94) Room Air 5/22/20 16:00 99 18 129/69 (89) Room Air 08/03/19 15:45 88 18 125/72 (89) Room Air 08/03/19 15:30 88 18 125/72 (89) Room Air 08/03/19 15:15 112 18 128/78 (95) Room Air 08/03/19 15:00 114 18 132/81 (98) Room Air 08/03/19 14:45 109 18 125/69 (87) Room Air 08/03/19 14:30 103 18 139/72 (94) Room Air 08/03/19 14:15 111 18 134/86 (102) Room Air 08/03/19 14:00 98 18 134/75 (94) Room Air 08/03/19 13:45 104 18 135/86 (102) Room Air 08/03/19 13:30 37.0 96 18 135/84 (101) Room Air 08/03/19 13:15 106 18 127/86 (100) Room Air 08/03/19 13:00 101 18 122/83 (96) Room Air 08/03/19 12:45 105 18 136/81 (99) Room Air 08/03/19 12:30 100 18 129/8 (48) Room Air 08/03/19 12:15 99 18 134/87 (103) Room Air 08/03/19 12:00 95 18 123/71 (88) Room Air 08/03/19 11:45 102 18 130/82 (98) Room Air 08/03/19 11:30 102 18 125/87 (100) Room Air 08/03/19 11:15 101 18 125/84 (98) Room Air 08/03/19 11:00 37.0 106 18 98 Room Air 08/03/19 11:00 111 18 140/81 (100) Room Air 08/03/19 10:25 37.0 106 18 138/88 (105) 98 Room Air Labs Laboratory Tests 08/03/19 10:45: White Blood Count 8.3, Red Blood Count 3.91L, Hemoglobin 8.4L, Hematocrit 27L, Mean Corpuscular Volume 70L, Mean Corpuscular Hemoglobin 21L, Mean Corpuscular Hemoglobin Concent 31L, Red Cell Distribution Width 16.7H, Platelet Count 247, Mean Platelet Volume 11.0H, Neutrophils (%) (Auto) 69, Lymphocytes (%) (Auto) 21, Monocytes (%) (Auto) 8, Eosinophils (%) (Auto) 1, Basophils (%) (Auto) 0, Neutrophils # (Auto) 5.8, Lymphocytes # (Auto) 1.8, Monocytes # (Auto) 0.7, Eosinophils # (Auto) 0.1, Basophils # (Auto) 0.0 LILY KENNEDY MD August 03, 2019 20:26
[2019-08-03] MEDS ORDERED: WITCH HAZEL(TUCKS) 40 EA JAR TOP PRN (20:30)
[2019-08-03] MEDS ORDERED: BENZOCAINE/MENTHOL (DERMOPLAST) 60 ML CAN TP PRN (20:30)
--- OUTSIDE RECORDS SUMMARY | 2019-08-03 20:39 | XMS REPORT ---
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 Name Role Phone RENATA FARRAR Unavailable GAULT, LILY Unavailable GAULT, LILY Unavailable GAULT, LILY Unavailable WARREN, MADAN Unavailable GAULT, LILY Unavailable GAULT, LILY Unavailable GAULT, LILY R Unavailable GAULT, LILY Unavailable GAULT, LILY Unavailable GAULT, LILY Unavailable GAULT, LILY Unavailable GAULT, LILY Unavailable GAULT, LILY Unavailable GAULT, LILY Unavailable GAULT, LILY Unavailable GAULT, LILY Unavailable GAULT, LILY Unavailable GAULT, LILY Unavailable GAULT, LILY Unavailable GAULT, LILY Unavailable GAULT, LILY Unavailable GAULT, LILY Unavailable GAULT, LILY Unavailable GAULT, LILY Unavailable GAULT, LILY Unavailable GAULT, LILY Unavailable WARREN, MADAN Unavailable GAULT, LILY Unavailable LILY KENNEDY Unavailable LILY KENNEDY MD Unavailable Unavailable LILY KENNEDY Unavailable PCP, NONE Unavailable Unavailable Unavailable Unavailable LILY KENNEDY Unavailable Unavailable LILY KENNEDY MD Unavailable Unavailable Unavailable Unavailable Unavailable Unavailable Unavailable Unavailable Unavailable Unavailable Unavailable Unavailable Allergies Normalized Allergy Reported Date of Reaction(s) Care Provider Facility Allergy Type classification allergen Allergy Onset DA (1 source.) Unclassified No Known Drug 01-26-2017 - no inform ation LILY KENNEDY , Not Available Allergies (41706) Medications The data below is from unstructured sources Unknown Medications Unknown Medications Unknown Medications Unknown Medications Unknown Medications Unknown Medications Unknown Medications Unknown Medications Unknown Medications Unknown Medications Unknown Medications Unknown Medications Unknown Medications Unknown Medications Unknown Medications Unknown Medications Unknown Medications Unknown Medications Unknown Medications Unknown Medications Unknown Medications Unknown Medications Unknown Medications Unknown Medications Unknown Medications Unknown Medications Unknown Medications Unknown Medications Unknown Medications Unknown Medications Unknown Medications Unknown Medications Unknown Medications Unknown Medications Unknown Medications Unknown Medications Unknown Medications Unknown Medications Unknown Medications Unknown Medications Unknown Medications Unknown Medications Unknown Medications Unknown Medications Unknown Medications Unknown Medications No Known Medications No Known Medications No Known Medications No Known Medications No Known Medications No Known Medications No Known Medications No Known Medications No Known Medications No Known Medications No Known Medications No Known Medications No Known Medications No Known Medications No Known Medications No Known Medications No Known Medications No Known Medications No Known Medications No Known Medications No Known Medications No Known Medications No Known Medications No Known Medications No Known Medications No Known Medications No Known Medications No Known Medications No Known Medications No Known Medications No Known Medications No Known Medications Unknown Medications No Known Medications Problems Active Problems Problem Normalized Date Last Normalized Normalized Provider Fa cility Classification Problem(s) Recorded Problem Problem Sta tus Duration Other Anemia of the Chronic Active LILY KENNEDY Not Available complications puerperium (49435) of ; puerperium affecting management of mother (4 sources.) Past or Other Problems Problem Normalized Date Last Normalized Normalized Provider Fa cility Classification Problem(s) Recorded Problem Problem Sta tus Duration Unclassified 35 weeks no information no information LILY KENNEDY Not Available (21 sources.) gestation of (34779) Translations: [ - 35 weeks gestation of Z3A.35, - 36 weeks gestation of Z3A.36, - 37 weeks gestation of Z3A.37, - 23 weeks gestation of Z3A.23, - 19 weeks gestation of Z3A.19, - 31 weeks gestation of Z3A.31, - 39 weeks gestation of Z3A.39, - 27 weeks gestation of Z3A.27, - 40 weeks gestation of Z3A.40, - 10 weeks gestation of Z3A.10, - 38 weeks gestation of Z3A.38, 17 WEEKS GESTATION OF , 20 WEEKS GESTATION OF , - 35 weeks gestation of Z3A.35, - 36 weeks gestation of Z3A.36, - 37 weeks gestation of Z3A.37, - 23 weeks gestation of Z3A.23, - 19 weeks gestation of Z3A.19, - 31 weeks gestation of Z3A.31, - 39 weeks gestation of Z3A.39, - 27 weeks gestation of Z3A.27, - 40 weeks gestation of Z3A.40, - 10 weeks gestation of Z3A.10, - 38 weeks gestation of Z3A.38] Deficiency and Anemia, Episodic Completed LILY GAULT , Not Available other anemia unspecified (84201) (4 sources.) Umbilical cord Labor and Episodic Completed LILY GAULT , Not Available complication delivery (54347) (4 sources.) complicated by cord around neck, without compression, not applicable or unspecified OB-related Second degree Episodic Completed LILY GAULT , Not Available trauma to perineal (78283) perineum and laceration vulva (4 during sources.) delivery Residual Weeks of no information no information LILY KENNEDY , Not Available codes; gestation of (57239) unclassified not (2 sources.) specified Procedures Procedure Normalized Procedure Procedure Result Performer Facility Date EXTRACTION OF PRODUCTS no information no name Not Grecia ilable (77549) [place] 01-25-2017 Urnls dip stick/tablet no information no name [facility] rgnt non-auto w/o [facility] (87928) Immunizations Normalized Immunization Date Notes [facility] tet[facility] toxoid, 05-29-2019 no information no name [facility] reduced diphtheria [facility] toxoid, and [facility] acellular pertussis (21918) vaccine, adsorbed Results Test Name Value Interpretation Reference Range Date Time Fa cility (Normalized) (Normalized) (Medline Reference) not yet categorized on 2019-08-03 WRISTBAND NUMBER [id number] (no code) 08-03-2019 PENDING L OCATION 07:16-0400 [facility] (65553) laboratory on 2019-08-03 ABO and Rh group OP (no code) 08-03-2019 PENDING L OCATION Nom (Bld) 07:39-0400 [facility] (22634) Basophils (Bld) 0.0 10*3/uL (NEG) 0 - 0.3 10*3/uL 08-03-2019 PENDING LOCATION [#/Vol] 06:45-0400 [facility] (62083) Basophils/100 0 % (NEG) 0.5 - 1 % 08-03-2019 PENDING LOCATION WBC (Bld) 06:45-0400 [facility] (30971) Blood group Negative (no code) 08-03-2019 PENDING LOCATI ON antibody screen 07:42-0400 [facility] (97511) Ql Eosinophils 0.1 10*3/uL (NEG) 0.05 - 0.5 08-03-2019 PENDING LOCATION (Bld) [#/Vol] 10*3/uL 06:45-0400 [facility] (42225) Eosinophils/100 1 % (NEG) 1 - 4 % 08-03-2019 PENDIN G LOCATION WBC (Bld) 06:45-0400 [facility] (93314) Erythrocyte 16.7 % (H) 11.6 - 14.6 % [facility]03[facility]00 [facility] (77339) width (RBC) [Ratio] Hematocrit (Bld) 27 % (L) 36.1 - 50.3 % 08-03-2019 P ENDING LOCATION [Volume 06:45-0400 [facility] (32577) fraction] Hemoglobin (Bld) 8.4 g/dL (L) 12.1 - 17.2 g/dL 08-03-2019 PENDING LOCATION [Mass/Vol] 06:45-0400 [facility] (24940) Lymphocytes 1.8 10*3/uL (NEG) 0.9 - 2.9 08-03-2019 PENDING LOCATION (Bld) [#/Vol] 10*3/uL 06:45-0400 [facility] (62711) Lymphocytes/100 21 % (NEG) 20 - 40 % 08-03-2019 PENDIN G LOCATION WBC (Bld) 06:45-0400 [facility] (02181) MCH (RBC) 21 pg (L) 27 - 31 pg 08-03-2019 PENDING LOC ATION [Entitic mass] 06:45-0400 [facility] (00650) MCHC (RBC) 31 g/dL (L) 32 - 36 g/dL 08-03-2019 PENDING LOCATION [Mass/Vol] 06:45-0400 [facility] (34254) MCV (RBC) 70 (L) 08-03-2019 PENDING LOCATI ON [Entitic vol] 06:45-0400 [facility] (26195) Monocytes (Bld) 0.7 10*3/uL (NEG) 0.3 - 0.9 08-03-2019 PEND ING LOCATION [#/Vol] 10*3/uL 06:45-0400 [facility] (73965) Monocytes/100 8 % (NEG) 2 - 8 % 08-03-2019 PENDING LOCATION WBC (Bld) 06:45-0400 [facility] (72544) Neutrophils 5.8 10*3/uL (NEG) 1.7 - 7 10*3/uL 08-03-2019 PE NDING LOCATION (Bld) [#/Vol] 06:45-0400 [facility] (48168) Neutrophils/100 69 % (NEG) 40 - 60 % 08-03-2019 PENDIN G LOCATION WBC (Bld) 06:45-0400 [facility] (13629) Platelet mean 11.0 (H) 08-03-2019 PENDING LOCA TION volume (Bld) 06:45-0400 [facility] (00575) [Entitic vol] Platelets (Bld) 247 10*3/uL (NEG) 150 - 450 08-03-2019 PEND ING LOCATION [#/Vol] 10*3/uL 06:45-0400 [facility] (27195) RBC (Bld) 3.91 10*6/uL (L) 4.2 - 6.1 08-03-2019 PENDING L OCATION [#/Vol] 10*6/uL 06:45-0400 [facility] (80034) WBC (Bld) 8.3 10*3/uL (NEG) 3.5 - 10.5 08-03-2019 PENDING L OCATION [#/Vol] 10*3/uL 06:45-0400 [facility] (68189) laboratory on 2019-08-02 Albumin 3.1 g/dL (L) 3.4 - 5.4 g/dL 08-02-2019 PENDING LOCATION [Mass/Vol] 08:42-0400 [facility] (62598) ALP [Catalytic 322 U/L (H) 44 - 147 U/L 08-02-2019 PEND ING LOCATION activity/Vol] 08:42-0400 [facility] (75971) ALT [Catalytic 10 U/L (NEG) 4 - 40 U/L 08-02-2019 PENDIN G LOCATION activity/Vol] 08:42-0400 [facility] (67092) Anion gap 9 mmol/L (NEG) 3 - 11 mmol/L 08-02-2019 PENDING LOCATION [Moles/Vol] 08:42-0400 [facility] (39620) AST [Catalytic 18 U/L (NEG) 10 - 34 U/L 08-02-2019 PENDI NG LOCATION activity/Vol] 08:42-399 [facility] (18585) Basophils (Bld) 0.0 10*3/uL (NEG) 0 - 0.3 10*3/uL 08-02-2019 PENDING LOCATION [#/Vol] 08:420 [facility] (90966) Basophils/100 0 % (NEG) 0.5 - 1 % 08-02-2019 PENDING LOCATION WBC (Bld) 08:420 [facility] (87240) Bilirubin 1.2 mg/dL (H) 0.1 - 1.2 mg/dL 08-02-2019 [facility] [[facility] 08:420400 [facility] (48403) Calcium 8.5 mg/dL (NEG) 8.5 - 10.2 mg/dL 08-02-2019 PENDI NG LOCATION [Mass/Vol] 08:420400 [facility] (54717) Calcium 9.2 mg/dL (NEG) 8.5 - 10.2 mg/dL 08-02-2019 PENDI NG LOCATION [Mass/Vol] 08:420400 [facility] (33156) Chloride 108 mmol/L (H) 95 - 106 mmol/L 08-02-2019 PENDI NG LOCATION [Moles/Vol] 08:420400 [facility] () CO2 [Moles/Vol] 20 mmol/L (L) 23 - 29 mmol/L 08-02-2019 P ENDING LOCATION 08:42-0400 [facility] (30592) Creatinine (U) 86 mg/dL (NEG) 08-02-2019 PENDING LOC ATION [Mass/Vol] 08:49-0400 [facility] (33320) Creatinine 0.69 mg/dL (NEG) 08-02-2019 PENDING LOCATI ON [Mass/Vol] 08:42-0400 [facility] (85590) Creatinine and > (no code) 08-02-2019 PENDING LOC ATION Glomerular 08:42-0400 [facility] (86835) filtration rate.predicted panel - Serum, Plasma or Blood Eosinophils 0.1 10*3/uL (NEG) 0.05 - 0.5 08-02-2019 PENDING LOCATION (Bld) [#/Vol] 10*3/uL 08:42-0400 [facility] (95849) Eosinophils/100 2 % (NEG) 1 - 4 % 08-02-2019 PENDIN G LOCATION WBC (Bld) 08:42-0400 [facility] (65302) Erythrocyte 16.5 % (H) 11.6 - 14.6 % 08-02-2019 PENDIN G LOCATION distribution 08:42-0400 [facility] (87320) width (RBC) [Ratio] Glucose 75 mg/dL (NEG) 60 - 125 mg/dL 08-02-2019 PENDING LOCATION [Mass/Vol] 08:42-0400 [facility] (91208) Hematocrit (Bld) 27 % (L) 36.1 - 50.3 % 08-02-2019 P ENDING LOCATION [Volume 08:42-0400 [facility] (86910) fraction] Hemoglobin (Bld) 8.4 g/dL (L) 12.1 - 17.2 g/dL 08-02-2019 PENDING LOCATION [Mass/Vol] 08:42-0400 [facility] (26900) LDH [Catalytic 183 U/L (NEG) 105 - 333 U/L 08-02-2019 PEN DING LOCATION activity/Vol] 08:42-0400 [facility] (05175) Lymphocytes 1.9 10*3/uL (NEG) 0.9 - 2.9 08-02-2019 PENDING LOCATION (Bld) [#/Vol] 10*3/uL 08:42-0400 [facility] (57848) Lymphocytes/100 26 % (NEG) 20 - 40 % 08-02-2019 PENDIN G LOCATION WBC (Bld) 08:42-0400 [facility] (34198) MCH (RBC) 22 pg (L) 27 - 31 pg 08-02-2019 PENDING LOC ATION [Entitic mass] 08:42-0400 [facility] (40659) MCHC (RBC) 31 g/dL (L) 32 - 36 g/dL 08-02-2019 PENDING LOCATION [Mass/Vol] 08:42-0400 [facility] (03462) MCV (RBC) 70 (L) 08-02-2019 PENDING LOCATI ON [Entitic vol] 08:42-0400 [facility] (94916) Monocytes (Bld) 0.7 10*3/uL (NEG) 0.3 - 0.9 08-02-2019 PEND ING LOCATION [#/Vol] 10*3/uL 08:42-0400 [facility] (04550) Monocytes/100 10 % (NEG) 2 - 8 % 08-02-2019 PENDING LOCATION WBC (Bld) 08:42-0400 [facility] (48259) Neutrophils 4.5 10*3/uL (NEG) 1.7 - 7 10*3/uL 08-02-2019 PE NDING LOCATION (Bld) [#/Vol] 08:42-0400 [facility] (71760) Neutrophils/100 62 % (NEG) 40 - 60 % 08-02-2019 PENDIN G LOCATION WBC (Bld) 08:42-0400 [facility] (21688) Platelet mean 10.1 (NEG) 08-02-2019 PENDING LOCA TION volume (Bld) 08:42-0400 [facility] (30345) [Entitic vol] Platelets (Bld) 249 10*3/uL (NEG) 150 - 450 08-02-2019 PEND ING LOCATION [#/Vol] 10*3/uL 08:42-0400 [facility] (07299) Potassium 4.2 mmol/L (NEG) 3.7 - 5.2 mmol/L 08-02-2019 PEND ING LOCATION [Moles/Vol] 08:42-0400 [facility] (50234) Protein (U) 20 mg/dL (H) 0 - 20 mg/dL 08-02-2019 PENDING LOCATION [Mass/Vol] 08:49-0400 [facility] (01631) Protein 6.2 g/dL (L) 6.4 - 8.3 g/dL 08-02-2019 PENDING LOCATION [Mass/Vol] 08:42-0400 [facility] (33433) Protein/Creatini 0.23 (no code) 08-02-2019 PENDING L OCATION ne (U) [Mass 08:49-0400 [facility] (81529) ratio] RBC (Bld) 3.85 10*6/uL (L) 4.2 - 6.1 08-02-2019 PENDING L OCATION [#/Vol] 10*6/uL 08:42-0400 [facility] (04968) Sodium 137 mmol/L (NEG) 135 - 145 mmol/L 08-02-2019 PEND ING LOCATION [Moles/Vol] 08:42-0400 [facility] (55636) Urate [Mass/Vol] 4.0 mg/dL (NEG) 3.5 - 7.2 mg/dL 08-02-2019 PENDING LOCATION 08:42-0400 [facility] (58815) Urea nitrogen 6 mg/dL (L) 7 - 20 mg/dL 08-02-2019 PENDI NG LOCATION [Mass/Vol] 08:42-0400 [facility] (74233) Urea 9 mg/mg (no code) 6 - 22 mg/mg 08-02-2019 PENDING L OCATION nitrogen/Creatin 08:42-0400 [facility] (42823) ine [Mass ratio] WBC (Bld) 7.2 10*3/uL (NEG) 3.5 - 10.5 08-02-2019 PENDING L OCATION [#/Vol] 10*3/uL 08:42-0400 [facility] (25164) not yet categorized on 2019-06-28 BLO ~turbid~da (no code) Counts Include [facility]~strong~tra [facility] ce~1+~trace~>=1. (30932) 030~negative FRANCES neg~3+ (no code) [facility] (03579) Lot # [id number] (no code) [facility] (07261) URO 2.0 (no code) [facility] (37673) laboratory on 2019-06-28 Bacteria SEE NOTE (A) [facility] Cx [facility] Nom (U) [facility] () Glucose Test Negative (no code) [facility] strip (U) [facility] [Mass/Vol] [facility] () pH (Bld) 6.0 [pH] (no code) 7.38 - 7.42 [pH] [facility] (68532) Protein (U) 1 mg/dL (no code) 0 - 20 mg/dL [facility] [Mass/Vol] [facility] () Protein (U) 1+ (no code) [facility] [Mass/Vol] [facility] (81510) laboratory on 2019-06-14 Protein (U) Negtaive~Trace (no code) [facility] [Mass/Vol] [facility] (33768) laboratory on 2019-05-29 Protein (U) Negative (no code) 0 - 20 mg/dL [facility] [Mass/Vol] [facility] (07907) laboratory on 2019-05-21 Glucose 1st 138 (N) [facility] specimen post [facility] Unsp [facility] [Mass/Vol] (13941) Glucose 2nd 131 (N) [facility] specimen post [facility] Unsp [facility] [Mass/Vol] (06580) Glucose 3rd 112 (N) [facility] specimen post [facility] Unsp [facility] [Mass/Vol] (82408) Glucose post 78 mg/dL (N) 70 - 110 mg/dL [facility] fast [Mass/Vol] [facility] (14985) Service comment no information (no code) [facility] (Unsp spec) [facility] [Interp] [facility] (10071) Specimen drawn 1030AM (no code) [facility] [Date/time] [facility] (53063) Specimen drawn 1130AM (no code) [facility] [Date/time] [facility] (83664) Specimen drawn 1230PM (no code) [facility] (56613) Specimen drawn 130PM (no code) [facility] [Date/time] [facility] (34287) laboratory on 2019-05-15 Basophils (Bld) 0.031 10*3/uL (N) 0 - 0.3 10*3/uL [facility] [#/Vol] [facility] (78427) Basophils/100 0.4 % (N) 0.5 - 1 % [facility] WBC (Bld) [facility] (07368) Eosinophils 0.069 10*3/uL (N) 0.05 - 0.5 [facility] He alth (Bld) [#/Vol] 10*3/uL [facility] (91730) Eosinophils/100 0.9 % (N) 1 - 4 % [facility] WBC (Bld) [facility] (90311) Erythrocyte 12.5 % (N) 11.6 - 14.6 % [facility] ealth distribution [facility] (RBC) [facility] [Ratio] (57137) Glucose 1 Hr 157 (N) [facility] post meal [facility] [Mass/Vol] [facility] (87222) Hematocrit (Bld) 31.3 % (L) 36.1 - 50.3 % [facility] [Volume [facility] fraction] [facility] (92760) Hemoglobin (Bld) 10.3 g/dL (L) 12.1 - 17.2 g/dL [facility] [Mass/Vol] [facility] (41251) Lymphocytes 1.748 10*3/uL (N) 0.9 - 2.9 Counts Include [address] At [facility] alth (Bld) [#/Vol] 10*3/uL [facility] (39031) Lymphocytes/100 22.7 % (N) 20 - 40 % [facility] WBC (Bld) [facility] (93654) MCH (RBC) 27.7 pg (N) 27 - 31 pg [facility] th [Entitic mass] [facility] (13619) MCHC (RBC) 32.9 g/dL (N) 32 - 36 g/dL [facility] [Mass/Vol] [facility] (11745) MCV (RBC) 84.1 fL (N) 80 - 100 fL [facility] Hea lth [Entitic vol] [facility] (28257) Monocytes (Bld) 0.501 10*3/uL (N) 0.3 - 0.9 [facility] Health [#/Vol] 10*3/uL [facility] (47319) Monocytes/100 6.5 % (N) 2 - 8 % [facility] He alth WBC (Bld) [facility] (47928) Neutrophils 5.352 10*3/uL (N) 1.7 - 7 10*3/uL [facility] Health (Bld) [#/Vol] [facility] (19838) Neutrophils/100 69.5 % (N) 40 - 60 % [facility] WBC (Bld) [facility] (82170) Platelet mean 10.3 fL (N) 7.2 - 11.7 fL [facility] Health volume (Bld) [facility] [Entitic vol] [facility] (99678) Platelets (Bld) 236 10*3/uL (N) 150 - 450 [facility] [#/Vol] 10*3/uL [facility] (22952) RBC (Bld) 3.72 10*6/uL (L) 4.2 - 6.1 Counts Include [facility] [#/Vol] 10*6/uL [facility] (85863) Reagin Ab RPR Ql NON-REACTIVE (N) [facility] He[facility]th (S) [facility] (85031) WBC (Bld) 7.7 10*3/uL (N) 3.5 - 10.5 [facility] Heal th [#/Vol] 10*3/uL [facility] (72448) laboratory on 2019-04-27 Protein (U) Negative (no code) 0 - 20 mg/dL [facility] He alth [Mass/Vol] [facility] (93990) laboratory on 2019-03-27 Protein (U) neg~trace (no code) [facility]alt [facility] [Mass/Vol] [facility] (18141) not yet categorized on 2019-01-23 BLO 01/31~turbid~amb (no code) [facility] er~no~negative~1 [facility] +~1+~>=1.030~neg [facility] ative (47344) CLINICAL no information (N) [facility] INFORMATION: [facility] (00647) COMMENT no information (no code) [facility] (24794) Date of previous no information (N) [facility] biopsy [facility] (26218) Date of previous no information (N) [facility] PAP smear [facility] (70068) Exp date +~06/01 (no code) [facility] (58310) Last menstrual no information (N) [facility] start [place] [facility] (56349) FRANCES Negative (no code) [facility] (60371) Lot # [id number] (no code) [facility] (54517) Lot # [id number] (no code) [facility] (48786) Lot # [id number] (no code) [facility] (62545) RESULTS Positive (no code) [facility] (82194) TCA 03/02~+~negative (no code) [facility] ~negative~negati [facility] ve~negative~nega [facility] tive~negative~ne (17479) gative~negative~ negative~negativ e~negaitve~negat leda~negative URO 1.0 (no code) [facility] (58347) laboratory on 2019-01-23 ABO group Nom O (no code) [facility] (Bld) [facility] (01643) Bacteria SEE NOTE (no code) [facility] cx Nom (Genital [facility] specimen) (55158) Bacteria SEE NOTE (no code) [facility] Cx [facility] Nom (U) [facility] (92658) Basophils (Bld) 0.02 10*3/uL (N) 0 - 0.3 10*3/uL [facility] [#/Vol] [facility] (07552) Basophils/100 0.3 % (N) 0.5 - 1 % [facility] WBC (Bld) [facility] (16580) Blood group NO ANTIBODIES (N) [facility] antibody screen DETECTED [facility] (94109) Endoscopy Rn Cyto no information (N) [facility] stain [facility] (Cvx/Vag) [ID] [facility] (87848) Cytology study no information (N) [facility] comment Cyto [facility] stain [place] [facility] (Cvx/Vag) (72835) [Interp] Eosinophils 0.027 10*3/uL (N) 0.05 - 0.5 Counts Include [address] [facility] alth (Bld) [#/Vol] 10*3/uL [facility] (64329) Eosinophils/100 0.4 % (N) 1 - 4 % [facility] WBC (Bld) [facility] (90815) Erythrocyte 14.1 % (N) 11.6 - 14.6 % [facility] ealth distribution [facility] width (RBC) [facility] [Ratio] (28724) General no information (A) [facility] categories Cyto [place] [facility] (Cvx/Vag) [facility] [Interp] (09243) Hematocrit (Bld) 38.9 % (N) 36.1 - 50.3 % [facility] [Volume [facility]] [facility] (12277) Hemoglobin (Bld) 13.2 g/dL (N) 12.1 - 17.2 g/dL [facility] [Mass/Vol] [facility] (48274) HPV E6+E7 mRNA Detected (A) [facility] ASHWINI+probe Ql [facility] (Cvx) [facility] (11469) Lymphocytes 1.333 10*3/uL (N) 0.9 - 2.9 Community alth (Bld) [#/Vol] 10*3/uL [facility] (97915) Lymphocytes/100 19.9 % (N) 20 - 40 % [facility] WBC (Bld) [facility] (47652) MCH (RBC) 28.9 pg (N) 27 - 31 pg [facility] th [Entitic mass] [facility] (78206) MCHC (RBC) 33.9 g/dL (N) 32 - 36 g/dL [facility] [Mass/Vol] [facility] (97947) MCV (RBC) 85.3 fL (N) 80 - 100 fL [facility] Hea lth [Entitic vol] [facility] (60917) Microscopic no information (A) [facility] observation Cyto [facility] stain Nom (Cvx) [facility] (02572) Monocytes (Bld) 0.362 10*3/uL (N) 0.3 - 0.9 [facility] [#/Vol] 10*3/uL [facility] (85675) Monocytes/100 5.4 % (N) 2 - 8 % Counts Include [address] [facility] alth WBC (Bld) [facility] (83669) Neutrophils 4.958 10*3/uL (N) 1.7 - 7 10*3/uL [facility] Health (Bld) [#/Vol] [facility] (12914) Neutrophils/100 74 % (N) 40 - 60 % [facility] WBC (Bld) [facility] ([id number]) Pathologist Cyto no information (N) Counts Include [facility] Nom [facility] (Cvx/Vag) [ID] [facility] (81967) pH (Bld) 5.5 [pH] (no code) 7.38 - 7.42 [pH] [facility] (26104) Platelet mean 11.2 fL (N) 7.2 - 11.7 fL [facility] volume (Bld) [facility] [Entitic vol] [facility] (23356) Platelets (Bld) 279 10*3/uL (N) 150 - 450 [facility] [#/Vol] 10*3/uL [facility] (73868) Protein (U) Negative (no code) 0 - 20 mg/dL [facility] [Mass/Vol] [facility] (52625) RBC (Bld) 4.56 10*6/uL (N) 4.2 - 6.1 [facility] [#/Vol] 10*6/uL [facility] (91566) Rh Nom (Bld) Positive (no code) [facility] (82671) Rubella virus 2.98 (N) [facility] IgG Qn (S) [facility] (48896) Specimen source Cervix (N) [facility] Cyto stain Nom [facility] (Cvx/Vag) [facility] (69559) Statement of no information (N) [facility] adequacy Cyto [facility] stain (Cvx/Vag) [facility] [Interp] (38499) WBC (Bld) 6.7 10*3/uL (N) 3.5 - 10.5 [facility] [#/Vol] 10*3/uL [facility] (52369) imm/path on 2016-12-31 Streptococcus.be Negative (no code) 12-31-2016 Not Avail able ta-hemolytic Org 09:52-0400 (71331) specific cx Ql (Unsp spec) other on 2016-10-27 Erythrocyte 12.6 % (no code) 11.6 - 14.6 % 10-27-2016 Not Av ailable distribution 07:50-0400 (01437) width (RBC) [Ratio] Immature 0.0 10*3/uL (no code) 0 - 0.2 10*3/uL 10-27-2016 Not Available granulocytes 07:50-0400 ([id number]) (Bld) [#/Vol] Immature 0 % (no code) 0 - 0.5 % 10-27-2016 Not Availabl e granulocytes/100 07:50-0400 (38702) WBC (Bld) MCHC (RBC) 34.6 g/dL (no code) 32 - 36 g/dL 10-27-2016 Not Avai lable [Mass/Vol] 07:50-0400 ([id number]) metabolic panel on 2016-10-27 Glucose 1 Hr 119 mg/dL (no code) 60 - 200 mg/dL 10-27-2016 Not Available post 50 g 07:30-0400 (51964) glucose PO [Mass/Vol] hematology on 2016-10-27 Basophils (Bld) 0.0 10*3/uL (no code) 0 - 0.3 10*3/uL 10-27-2016 Not Available [#/Vol] 07:50-0400 ([id number]) Basophils/100 0 % (no code) 0.5 - 1 % 10-27-2016 Not Avai lable WBC (Bld) 07:50-0400 (89717) Eosinophils 0.1 10*3/uL (no code) 0.05 - 0.5 10-27-2016 Not Grecia ilable (Bld) [#/Vol] 10*3/uL 07:50-0400 ([id number]) Eosinophils/100 1 % (no code) 1 - 4 % 10-27-2016 Not Av ailable WBC (Bld) 07:50-0400 ([id number]) Hematocrit (Bld) 33.5 % (L) 36.1 - 50.3 % 10-27-2016 N ot Available [Volume 07:50-0400 ([id number]) fraction] Hemoglobin (Bld) 11.6 g/dL (no code) 12.1 - 17.2 g/dL 10-27-2016 Not Available [Mass/Vol] 07:50-0400 ([id number]) Lymphocytes 1.7 10*3/uL (no code) 0.9 - 2.9 10-27-2016 Not Avai lable (Bld) [#/Vol] 10*3/uL 07:50-0400 ([id number]) Lymphocytes/100 20 % (no code) 20 - 40 % 10-27-2016 Not Av ailable WBC (Bld) 07:50-0400 ([id number]) MCH (RBC) 30.6 pg (no code) 27 - 31 pg 10-27-2016 Not Availab le [Entitic mass] 07:50-0400 ([id number]) MCV (RBC) 88 fL (no code) 80 - 100 fL 10-27-2016 Not Availa ble [Entitic vol] 07:50-0400 ([id number]) Monocytes (Bld) 0.7 10*3/uL (no code) 0.3 - 0.9 10-27-2016 Not Available [#/Vol] 10*3/uL 07:50-0400 ([id number]) Monocytes/100 9 % (no code) 2 - 8 % 10-27-2016 Not Avai lable WBC (Bld) 07:50-0400 (09592) Neutrophils 5.9 10*3/uL (no code) 1.7 - 7 10*3/uL 10-27-2016 No t Available (Bld) [#/Vol] 07:50-0400 ([id number]) Neutrophils/100 70 % (no code) 40 - 60 % 10-27-2016 Not Av ailable WBC (Bld) 07:50-0400 (77905) Platelets (Bld) 250 10*3/uL (no code) 150 - 450 10-27-2016 Not Available [#/Vol] 10*3/uL 07:50-0400 ([id number]) RBC (Bld) 3.79 10*6/uL (no code) 4.2 - 6.1 10-27-2016 Not Avail able [#/Vol] 10*6/uL 07:50-0400 ([id number]) WBC (Bld) 8.5 10*3/uL (no code) 3.5 - 10.5 10-27-2016 Not Avail able [#/Vol] 10*3/uL 07:50-0400 ([id number]) imm/path on 2016-08-07 Bacteria Note (no code) 08-07-2016 Not Available identified Aer 16:33-0400 ([id number]) cx Nom (Genital specimen) urinalysis on 2016-08-05 Bacteria Note (no code) 08-05-2016 Not Available identified Cx 23:35-0400 ([id number]) Nom (U) thyroid on 2016-08-05 TSH Qn 1.970 (no code) 08-05-2016 Not Available 08:33-0400 ([id number]) other on 2016-08-05 Erythrocyte 14.9 % (no code) 11.6 - 14.6 % 08-05-2016 Not Av ailable distribution 08:020400 (65980) width (RBC) [Ratio] Immature 0.0 10*3/uL (no code) 0 - 0.2 10*3/uL 08-05-2016 Not Available granulocytes 08:020400 (77349) (Bld) [#/Vol] Immature 0 % (no code) 0 - 0.5 % 08-05-2016 Not Availabl e granulocytes/100 08:02-0400 ([id number]) WBC (Bld) MCHC (RBC) 33.2 g/dL (no code) 32 - 36 g/dL 08-05-2016 Not Avai lable [Mass/Vol] 08:02-0400 ([id number]) Rubella virus 3.48 (no code) 08-05-2016 Not Availabl e IgG Qn (S) 17:54-0400 ([id number]) hematology on 2016-08-05 ABO group Nom O (no code) 08-05-2016 Not Availabl e (Bld) 17:31-0400 ([id number]) Basophils (Bld) 0.0 10*3/uL (no code) 0 - 0.3 10*3/uL 08-05-2016 Not Available [#/Vol] 08:020400 ([id number]) Basophils/100 0 % (no code) 0.5 - 1 % 08-05-2016 Not Avai lable WBC (Bld) 08:020400 (73835) Blood group Negative (no code) 08-05-2016 Not Available antibody screen 17:310400 (25715) Ql Eosinophils 0.2 10*3/uL (no code) 0.05 - 0.5 08-05-2016 Not Grecia ilable (Bld) [#/Vol] 10*3/uL 08:02-0400 (87463) Eosinophils/100 3 % (no code) 1 - 4 % 08-05-2016 Not Av ailable WBC (Bld) 08:02-0400 (58921) Hematocrit (Bld) 41.3 % (no code) 36.1 - 50.3 % 08-05-2016 N ot Available [Volume 08:020400 (66521) fraction] Hemoglobin (Bld) 13.7 g/dL (no code) 12.1 - 17.2 g/dL 08-05-2016 Not Available [Mass/Vol] 08:02-0400 (25705) Lymphocytes 2.0 10*3/uL (no code) 0.9 - 2.9 08-05-2016 Not Avai lable (Bld) [#/Vol] 10*3/uL 08:02-0400 (49603) Lymphocytes/100 25 % (no code) 20 - 40 % 08-05-2016 Not Av ailable WBC (Bld) 08:020400 (93789) MCH (RBC) 29.8 pg (no code) 27 - 31 pg 08-05-2016 Not Availab le [Entitic mass] 08:02040 (80963) MCV (RBC) 90 fL (no code) 80 - 100 fL 08-05-2016 Not Availa ble [Entitic vol] 08:02040 (49381) Monocytes (Bld) 0.7 10*3/uL (no code) 0.3 - 0.9 08-05-2016 Not Available [#/Vol] 10*3/uL 08:020400 (85170) Monocytes/100 8 % (no code) 2 - 8 % 08-05-2016 Not Avai lable WBC (Bld) 08:020 (61567) Neutrophils 5.3 10*3/uL (no code) 1.7 - 7 10*3/uL 08-05-2016 No t Available (Bld) [#/Vol] 08:02-0400 (20554) Neutrophils/100 64 % (no code) 40 - 60 % 08-05-2016 Not Av ailable WBC (Bld) 08:020400 (52343) Platelets (Bld) 233 10*3/uL (no code) 150 - 450 08-05-2016 Not Available [#/Vol] 10*3/uL 08:02-0400 ([id number]) RBC (Bld) 4.60 10*6/uL (no code) 4.2 - 6.1 08-05-2016 Not Avail able [#/Vol] 10*6/uL 08:02-0400 (74968) Rh Nom (Bld) Positive (no code) 08-05-2016 Not Available 17:31-0400 ([id number]) WBC (Bld) 8.2 10*3/uL (no code) 3.5 - 10.5 08-05-2016 Not Avail able [#/Vol] 10*3/uL 08:020400 (37769) Vital Signs Vital Sign Value Interpretation Reference Date Time Care Prov ider Facility (Normalized) (Normalized) Range BMI (Body Mass 28.9 kg/m2 (no code) 15 - 25 kg/m2 01-25-2017 ISAIAH KENNEDY Community Index) 13:40-0500 545[address] [facility] (15226) Body 98.6 [degF] (no code) 97.8 - 99.0 01-25-2017 LILY CRUZ Community Temperature [degF] 13:40-[address] [place] [address] (91217) Height 157.48 cm (no code) cm 01-25-2017 LILY KENNEDY Co mmunity 13:40-[address] [place] [address] (86588) Weight 71.67 kg (no code) kg 01-25-2017 LILY KENNEDY Com munity 13:40-[address] [place] [address] (48108) Interventions No Information Plan of Treatment The data below is from unstructured sources Activity Details Follow Up 4 Weeks Reason: Discharge Date 01/28/17 5:00pm Disposition 01 HOME, SELF-CARE Instructions/Education Provided VAGI NAL DELIVERY DISCHARGE Prescriptions See Medication Section Referrals LILY KENNEDY MD (Unspecif ied) Order Date: 03/10/2017 Entered Date: 01/28/2017 10:36am Address: [address] [place] [address] [phone] Note: Follow-Up Appointment with Dr. Kennedy: 03/10/2017 at 9:20 AM. Activity Details Follow Up 2 Weeks. 48-72 hours Reaso n: Activity Details Follow Up 2 Weeks Reason: Activity Details Follow Up 1 Week Reason: Activity Details Follow Up 1 Year with [facility] Reason: Activity Details Follow Up IOL tomorrow Reason: Goals No Information Social History No Information Functional Status The data below is from unstructured sourcesNo functional status information available. Mental Status No Information Encounters Encounter Normalized Encounter Encounter Diagnosis Care Provi kaelyn Organization Date Type 10-27-2017 (PCM-F/U) no information LILY KENNEDY (no phone) [facility] Die Attaching Machine Tender F/u (no phone) 08-29-2017 (PCM-F/U) no information LILY KENNEDY (no phone) [facility] Die Attaching Machine Tender F/u (no phone) 01-26-2017 Patient encounter no information no name no or ganization name 09-09-2016 Patient encounter no information no name no or ganization name 08-17-2016 Patient encounter no information no name no or ganization name 08-03-2019 Patient encounter no information LILY KENNEDY MD ( no [facility] procedure phone) [facility] (no phone) 08-02-2019 Patient encounter no information LILY KENNEDY MD ( no [facility] procedure phone) [facility] (no phone) 07-19-2019 Patient encounter no information LILY KENNEDY (no ph one) [facility] procedure [facility] (no phone) 07-12-2019 Patient encounter no information LILY KENNEDY (no ph one) [facility] procedure [facility] (no phone) 06-28-2019 Patient encounter no information (no phone) [facility] procedure [facility] (no phone) 06-14-2019 Patient encounter no information (no phone) [facility] procedure [facility] (no phone) 05-29-2019 Patient encounter no information (no phone) [facility] procedure [facility] (no phone) 05-21-2019 Patient encounter no information (no phone) [facility] procedure [facility] (no phone) 05-15-2019 Patient encounter no information (no phone) [facility] procedure [facility] (no phone) 04-27-2019 Patient encounter no information (no phone) [facility] procedure [facility] (no phone) 04-02-2019 Patient encounter no information no name no or ganization name procedure 03-27-2019 Patient encounter no information no name no or ganization name procedure 01-31-2019 Patient encounter no information no name no or ganization name procedure 01-23-2019 Patient encounter no information no name no or ganization name procedure 01-26-2017 Patient encounter no information no name no or ganization name - procedure 01-28-2017 10-12-2016 Patient encounter no information no name no or ganization name procedure no information Encounter for dental no name no organi zation name examination and cleaning without abnormal findings Medical Equipment No Information Payers No Information Advance Directives Directive Response Recor ded Date/Time Advance Directives No 7:35am Health Care Power of Livestock Yard Attendant No 01/26/17 7:35am Organ Donor No 01/26/17 7:35am Resuscitation Status Full Code 01/26/17 7:35am Discharge Instructions No hospital discharge instruction information available. Additional Source Comments This clinical document has been generated using [employer] software that has been certified by the Office of the National Coordinator for Health Information Technology (ONC 15.99.04.3023.Diam.31.00.0.440776) and the National Committee for Industrial Maintenance Repairer (NCQA, as an eMeasure certified technology). FOR RECORDS PERTAINING TO PATIENTS WHO ARE OR HAVE BEEN ENROLLED IN A CHEMICAL D EPENDENCY/SUBSTANCE ABUSE PROGRAM, SOME INFORMATION MAY BE OMITTED. This clinica l summary was aggregated from multiple sources. Caution should be exercised in using it in the provision of clinical care. This summary normalizes information from multiple sources, and as a consequence, information in this document may ma terially change the coding, format and clinical context of patient data. In laura tion, data may be omitted in some cases. CLINICAL DECISIONS SHOULD BE BASED ON T HE PRIMARY CLINICAL RECORDS. [employer] provides no warranty or guara ntee of the accuracy or completeness of information in this document.The followi ng information is based on time limited clinical information UNRECOGNIZED CONTENT PROVIDED BELOW FOR UNRECOGNIZED SECTION MEDICAL (GENERAL) HISTORY Type Description Date Medical History denies Medical History due date 02/14/2017
--- OUTSIDE RECORDS SUMMARY | 2019-08-03 20:40 | XMS REPORT ---
Author Author Debra KENNEDY Organization [facility] Address [address] [place] [address] Care Team Providers Care Clinical Team Lead Name Role Phone LILY KENNEDY Unavailable PROBLEMS Unknown Problems ALLERGIES No Information ENCOUNTERS Encounter Location Date Diagnosis [facility] [address] [facility] [id number] [address] [place] [phone] Aug, [facility] [address] [facility] [id number] [address] [place] [phone] Jun, [facility] [address] [facility] [id number] [address] [place] [phone] May, [facility] [address] [facility] [id number] [address] [place] [phone] May, [facility] [address] [facility] [id number] [address] [place] [phone] Apr, [facility] [address] [facility] [id number] [address] [place] [phone] Mar, care and examinat ion Z39.2 [facility] [address] [facility] [id number] [address] [place] [phone] Mar, [facility] [address] [facility] [id number] [address] [place] [phone] Jan, [facility] [address] [facility] [id number] [address] [place] [phone] Jan, [facility] [address] [facility] [id number] [address] [place] [phone] Jan, Third trimester Z3 4.93 ; 40 weeks gestation of Z3A.40 and Irregular contractions O62.2 [facility] [address] [id number] [address] [place] [phone] Jan, [facility] [address] [id number] [address] [place] [phone] Jan, [facility] [address] [id number] [address] [place] [phone] Jan, Third trimester Z3 4.93 and 39 weeks gestation of Z3A.39 [facility] [address] [id number] [address] [place] [phone] Jan, [facility] [address] [id number] [address] [place] [phone] Jan, Third trimester Z3 4.93 and 38 weeks gestation of Z3A.38 [place] [address] [facility] [id number] [address] [place] [phone] Dec, 37 weeks gestation of pregna ncy Z3A.37 and Third trimester Z34.93 [facility] [address] [id number] [address] [place] [phone] Dec, [facility] [address] [facility] [id number] [address] [place] [phone] Dec, 36 weeks gestation of pregna ncy Z3A.36 and Third trimester Z34.93 [place] [address] [facility] [id number] [address] [place] [phone] Dec, [facility] [address] [facility] [id number] [address] [place] [phone] Dec, 35 weeks gestation of pregna ncy Z3A.35 and Third trimester Z34.93 [facility] [address] [id number] [address] [place] [phone] Nov, 33 weeks gestation of pregna ncy Z3A.33 and Third trimester Z34.93 [facility] [address] [facility] [id number] [address] [place] [phone] Nov, [place] [address] [id number] [address] [place] [place] [phone] Nov, [place] [address] [id number] [address] [place] [phone] Nov, Visit for TB skin test Z11.1 ; 31 weeks gestation of Z3A.31 ; Encounter for immunization Z23 and Third trimester Z34.93 [place] [address] [id number] [address] [place] [phone] 15 Oct, 2016 27 weeks gestation of pregna ncy Z3A.27 and Second trimester Z34.92 [place] [address] [id number] [address] [place] [phone] Sep, Normal in second t rimester Z34.92 ; Abnormal ultrasound O28.3 and 23 weeks gestation of Z3A.[address] [id number] [address] [place] [phone] Sep, [place] [address] [facility] [id number] [address] [place] [phone] Aug, [place] [address] [id number] [address] [place] [place] [phone] Aug, Normal in second t rimester Z34.92 and 19 weeks gestation of Z3A.19 [place] [address] [facility] [id number] [address] [place] [phone] 07 Aug, 2016 Encounter for dental examina tion and cleaning without abnormal findings Z01.20 [place] [address] [id number] [address] [place] [phone] Aug, [place] [address] [id number] [address] [place] [phone] Aug, Normal , first Z34. 00 [place] [address] [id number] [address] [place] [phone] Aug, [place] [address] [facility] [id number] [address] [place] [place] [phone] Aug, Dental examination Z01.20 [facility] [address] [id number] [address] [place] [phone] Aug, [facility] [address] [id number] [address] [place] [phone] July, [facility] [address] [facility] [id number] [address] [place] [place] [phone] July, Normal , first Z34. 00 and 10 weeks gestation of Z3A.10 [facility] [address] [id number] [address] [place] [phone] July, [facility] [address] [facility] [id number] [address] [place] [phone] July, Encounter for test Z32.00 IMMUNIZATIONS No Known Immunizations SOCIAL HISTORY Never Assessed REASON FOR VISIT OB-acute c/o -- lucy stein PLAN OF CARE Activity Details Follow Up IOL tomorrow Reason: VITAL SIGNS Height 62 in 2017-01-25 Weight 158.0 lbs 2017-01-25 Temperature 98.6 degrees Fahrenheit 2017-01-25 Heart Rate 88 bpm 2017-01-25 Respiratory Rate 20 2017-01-25 BMI 28.899 kg/m2 2017-01-25 Blood pressure systolic 126 mmHg 2017-01-25 Blood pressure diastolic 78 mmHg 2017-01-25 MEDICATIONS Medication Instructions Dosage Frequency Start Date End Date Duration S tatus 27-1 MG Active Zyrtec Allergy Active RESULTS Name Result Date Reference Range UA OB DIP (IN HOUSE) 2017-01-25 Glucose neg Protein trace PROCEDURES Procedure Date Ordered Result Body Site URINE-NO MICRO Jan 25, 2017 INSTRUCTIONS MEDICATIONS ADMINISTERED No Known Medications MEDICAL (GENERAL) HISTORY Type Description Date Medical History denies Medical History due date 02/14/2017
--- OUTSIDE RECORDS SUMMARY | 2019-08-03 20:40 | XMS REPORT ---
Author Author Debra KENNEDY Organization [facility] Address [address] [place] [address] Care Team Providers Care Flat Surfacer Jewel Name Role Phone LILY KENNEDY Unavailable PROBLEMS Unknown Problems ALLERGIES No Information ENCOUNTERS Encounter Location Date Diagnosis [facility] [address] [id number] [address] [place] [phone] Aug, [facility] [address] [id number] [address] [place] [phone] Jun, [facility] [address] [id number] [address] [place] [phone] May, [facility] [address] [id number] [address] [place] [phone] May, [facility] [address] [id number] [address] [place] [phone] Apr, [facility] [address] [id number] [address] [place] [phone] Mar, care and examinat ion Z39.2 [facility] [address] [id number] [address] [place] [phone] Mar, [facility] [address] [facility] [id number] [address] [place] [phone] Jan, [facility] [address] [id number] [address] [place] [phone] Jan, [facility] [address] [id number] [address] [place] [phone] Jan, Third trimester Z3 4.93 ; 40 weeks gestation of Z3A.40 and Irregular contractions O62.2 [facility] [address] [id number] [address] [place] [phone] Jan, [facility] [address] [id number] [address] [place] [phone] Jan, [facility] [address] [facility] [id number] [address] [place] [phone] Jan, Third trimester Z3 4.93 and 39 weeks gestation of Z3A.39 [facility] [address] [id number] [address] [place] [phone] Jan, [facility] [address] [id number] [address] [place] [phone] Jan, Third trimester Z3 4.93 and 38 weeks gestation of Z3A.38 [facility] [address] [facility] [id number] [address] [place] [phone] Dec, 37 weeks gestation of pregna ncy Z3A.37 and Third trimester Z34.93 [facility] [address] [id number] [address] [place] [phone] Dec, [facility] [address] [facility] [id number] [address] [place] [phone] Dec, 36 weeks gestation of pregna ncy Z3A.36 and Third trimester Z34.93 [facility] [address] [facility] [id number] [address] [place] [phone] Dec, [facility] [address] [facility] [id number] [address] [place] [phone] Dec, 35 weeks gestation of pregna ncy Z3A.35 and Third trimester Z34.93 [facility] [address] [id number] [address] [place] [phone] Nov, 33 weeks gestation of pregna ncy Z3A.33 and Third trimester Z34.93 [facility] [address] [facility] [id number] [address] [place] [phone] Nov, [facility] [address] [id number] [address] [place] [phone] Nov, [place] [address] [id number] [address] [place] [phone] Nov, Visit for TB skin test Z11.1 ; 31 weeks gestation of Z3A.31 ; Encounter for immunization Z23 and Third trimester Z34.93 [place] [address] [id number] [address] [place] [phone] 15 Oct, 2016 27 weeks gestation of pregna ncy Z3A.27 and Second trimester Z34.92 [place] [address] [id number] [address] [place] [phone] Sep, Normal in second t rimester Z34.92 ; Abnormal ultrasound O28.3 and 23 weeks gestation of Z3A.23 [place] [address] [facility] [id number] [address] [place] [phone] Sep, [place] [address] [id number] [address] [place] [phone] Aug, [place] [address] [id number] [address] [place] [phone] Aug, [facility] Z[facility].92 and 19 weeks gestation of Z3A.19 [place] [address] [facility] [id number] [address] [place] [phone] 07 Aug, 2016 Encounter for dental examina tion and cleaning without abnormal findings Z01.20 [place] [address] [id number] [address] [place] [phone] Aug, [place] [address] [id number] [address] [place] [phone] Aug, Normal , first Z34. 00 [place] [address] [id number] [address] [place] [phone] Aug, [place] [address] [id number] [address] [place] [phone] Aug, Dental examination Z01.20 [facility] [address] [facility] [id number] [address] [place] [phone] Aug, [facility] [address] [facility] [id number] [address] [place] [phone] July, [facility] [address] [facility] [id number] [address] [place] [phone] July, Normal , first Z34. 00 and 10 weeks gestation of Z3A.10 [facility] [address] [facility] [id number] [address] [place] [phone] July, [facility] [address] [facility] [id number] [address] [place] [phone] July, Encounter for test Z32.00 IMMUNIZATIONS No Known Immunizations SOCIAL HISTORY Never Assessed REASON FOR VISIT PLAN OF CARE VITAL SIGNS MEDICATIONS Unknown Medications RESULTS No Results PROCEDURES No Known procedures INSTRUCTIONS MEDICATIONS ADMINISTERED No Known Medications MEDICAL (GENERAL) HISTORY Type Description Date Medical History denies Medical History due date 02/14/2017
--- OUTSIDE RECORDS SUMMARY | 2019-08-03 20:40 | XMS REPORT ---
Author Author Debra KENNEDY Organization [facility] Address [address] [place] [address] Care Team Providers Care Stereotype Caster Name Role Phone LILY KENNEDY Unavailable PROBLEMS Unknown Problems ALLERGIES No Information ENCOUNTERS Encounter Location Date Diagnosis [facility] [address] [facility] [id number] [address] [place] [phone] Jun, [facility] [address] [facility] [id number] [address] [place] [phone] May, [facility] [address] [facility] [id number] [address] [place] [phone] May, [facility] [address] [facility] [id number] [address] [place] [phone] Apr, [facility] [address] [facility] [id number] [address] [place] [phone] Mar, care and examinat ion Z39.2 [facility] [address] [facility] [id number] [address] [place] [phone] Mar, [facility] [address] [facility] [id number] [address] [place] [phone] Jan, [facility] [address] [facility] [id number] [address] [place] [phone] Jan, [facility] [address] [id number] [address] [place] [phone] Jan, Third trimester Z3 4.93 ; 40 weeks gestation of Z3A.40 and Irregular contractions O62.2 [facility] [address] [facility] [id number] [address] [place] [phone] Jan, [facility] [address] [id number] [address] [place] [phone] Jan, [facility] [address] [facility] [id number] [address] [place] [phone] Jan, Third trimester Z3 4.93 and 39 weeks gestation of Z3A.39 [facility] [address] [facility] [id number] [address] [place] [phone] Jan, [facility] [address] [facility] [id number] [address] [place] [phone] Jan, Third trimester Z3 4.93 and 38 weeks gestation of Z3A.38 [facility] [address] [id number] [address] [place] [phone] Dec, 37 weeks gestation of pregna ncy Z3A.37 and Third trimester Z34.93 [facility] [address] [facility] [id number] [address] [place] [phone] Dec, [facility] [address] [id number] [address] [place] [phone] Dec, 36 weeks gestation of pregna ncy Z3A.36 and Third trimester Z34.93 [facility] [address] [facility] [id number] [address] [place] [phone] Dec, [facility] [address] [facility] [id number] [address] [place] [phone] Dec, 35 weeks gestation of pregna ncy Z3A.35 and Third trimester Z34.93 [facility] [address] [id number] [address] [place] [phone] Nov, 33 weeks gestation of pregna ncy Z3A.33 and Third trimester Z34.93 [facility] [address] [id number] [address] [place] [phone] Nov, [facility] [address] [facility] [id number] [address] [place] [phone] Nov, [place] [address] [id number] [address] [place] [phone] 12 Nov, 2016 Visit for TB skin test Z11.1 ; 31 weeks gestation of Z3A.31 ; Encounter for immunization Z23 and Third trimester Z34.93 [facility] [address] [facility] [id number] [address] [place] [phone] 15 Oct, 2016 27 weeks gestation of pregna ncy Z3A.27 and Second trimester Z34.92 [place] [address] [facility] [id number] [address] [place] [phone] Sep, Normal in second t rimester Z34.92 ; Abnormal ultrasound O28.3 and 23 weeks gestation of Z3A.23 [place] [address] [facility] [id number] [address] [place] [phone] Sep, [address] [id number] [address] [place] [phone] Aug, [place] [address] [facility] [id number] [address] [place] [phone] Aug, Normal in second t rimester Z34.92 and 19 weeks gestation of Z3A.19 [place] [address] [facility] [id number] [address] [place] [phone] 07 Aug, 2016 Encounter for dental examina tion and cleaning without abnormal findings Z01.20 [place] [address] [facility] [id number] [address] [place] [phone] Aug, [address] [id number] [address] [place] [phone] Aug, Normal , first Z34. [address] [id number] [address] [place] [phone] Aug, Dental examination Z01.20 [place] [address] [facility] [id number] [address] [place] [phone] Aug, [place] [address] [facility] [id number] [address] [place] [phone] Aug, [facility] [address] [facility] [id number] [address] [place] [phone] July, [facility] [address] [facility] [id number] [address] [place] [phone] July, Normal , first Z34. 00 and 10 weeks gestation of Z3A.10 [place] [address] [facility] [id number] [address] [place] [phone] July, [place] [address] [facility] [id number] [address] [place] [phone] July, Encounter for test Z32.00 IMMUNIZATIONS No Known Immunizations SOCIAL HISTORY Never Assessed REASON FOR VISIT PLAN OF CARE VITAL SIGNS MEDICATIONS Unknown Medications RESULTS No Results PROCEDURES No Known procedures INSTRUCTIONS MEDICATIONS ADMINISTERED No Known Medications MEDICAL (GENERAL) HISTORY Type Description Date Medical History denies Medical History due date 02/14/2017
--- OUTSIDE RECORDS SUMMARY | 2019-08-03 20:40 | XMS REPORT ---
Author Author Debra KELLEY [facility] Address [address] [place] [address] Care Team Providers Care Revenue Analyst Name Role Phone MADAN KELLEY Unavailable PROBLEMS Type Condition ICD9-CM Code XTN51-QC Code Onset Dates Condition S tatus SNOMED Code Problem Encounter for dental examination and gina aning without abnormal findings Z01.20 Active [id number] ALLERGIES No Known Allergies SOCIAL HISTORY Never Assessed PLAN OF CARE VITAL SIGNS MEDICATIONS Unknown Medications RESULTS No Results PROCEDURES No Known procedures IMMUNIZATIONS No Known Immunizations MEDICAL (GENERAL) HISTORY Type Description Date Medical History denies Medical History due date 02/14/2017
--- OUTSIDE RECORDS SUMMARY | 2019-08-03 20:40 | XMS REPORT ---
Author Author Debra KENNEDY Organization [facility] Address [address] [place] [address] Care Team Providers Care Can Repairer Name Role Phone LILY KENNEDY Unavailable PROBLEMS Unknown Problems ALLERGIES No Information ENCOUNTERS Encounter Location Date Diagnosis [facility] [address] [id number] [address] [place] [phone] Oct, [facility] [address] [id number] [address] [place] [phone] Aug, [facility] [address] [id number] [address] [place] [phone] Jun, [facility] [address] [id number] [address] [place] [phone] May, [facility] [address] [id number] [address] [place] [phone] May, [facility] [address] [id number] [address] [place] [phone] Apr, [facility] [address] [id number] [address] [place] [phone] Mar, care and examinat ion Z39.2 [facility] [address] [id number] [address] [place] [phone] Mar, [facility] [address] [id number] [address] [place] [phone] Jan, [facility] [address] [id number] [address] [place] [phone] Jan, [facility] [address] [id number] [address] [place] [phone] Jan, Third trimester Z3 4.93 ; 40 weeks gestation of Z3A.40 and Irregular contractions O62.2 [facility] [address] [id number] [address] [place] [phone] Jan, [facility] [address] [id number] [address] [place] [phone] Jan, [facility] [address] [id number] [address] [place] [phone] Jan, Third trimester Z3 4.93 and 39 weeks gestation of Z3A.39 [facility] [address] [id number] [address] [place] [phone] Jan, [facility] [address] [id number] [address] [place] [phone] Jan, Third trimester Z3 4.93 and 38 weeks gestation of Z3A.38 [facility] [address] [id number] [address] [place] [phone] Dec, 37 weeks gestation of pregna ncy Z3A.37 and Third trimester Z34.93 [facility] [address] [id number] [address] [place] [phone] Dec, [facility] [address] [id number] [address] [place] [phone] Dec, 36 weeks gestation of pregna ncy Z3A.36 and Third trimester Z34.93 [facility] [address] [id number] [address] [place] [phone] Dec, [facility] [address] [id number] [address] [place] [phone] Dec, 35 weeks gestation of pregna ncy Z3A.35 and Third trimester Z34.93 [facility] [address] [id number] [address] [place] [phone] Nov, 33 weeks gestation of pregna ncy Z3A.33 and Third trimester Z34.93 [facility] [address] [id number] [address] [place] [phone] Nov, [place] [address] [id number] [address] [place] [phone] Nov, [place] [address] [facility] [id number] [address] [place] [phone] Nov, Visit for TB skin test Z11.1 ; 31 weeks gestation of Z3A.31 ; Encounter for immunization Z23 and Third trimester Z34.93 [place] [address] [id number] [address] [place] [phone] Oct, 27 weeks gestation of pregna ncy Z3A.27 and Second trimester Z34.92 [place] [address] [facility] [id number] [address] [place] [phone] Sep, Normal in second t rimester Z34.92 ; Abnormal ultrasound O28.3 and 23 weeks gestation of Z3A.23 [place] [address] [facility] [id number] [address] [place] [phone] Sep, [place] [address] [facility] [id number] [address] [place] [phone] Aug, [place] [address] [facility] [id number] [address] [place] [phone] Aug, Normal in second t rimester Z34.92 and 19 weeks gestation of Z3A.19 [place] [address] [facility] [id number] [address] [place] [phone] Aug, Encounter for dental examina tion and cleaning without abnormal findings Z01.20 [place] [address] [id number] [address] [place] [phone] Aug, [place] [address] [facility] [id number] [address] [place] [phone] Aug, Normal , first Z34. 00 [place] [address] [facility] [id number] [address] [place] [phone] Aug, Dental examination Z01.20 [facility] [address] [id number] [address] [place] [phone] Aug, [facility] [address] [id number] [address] [place] [phone] Aug, [facility] [address] [facility] [id number] [address] [place] [phone] July, [facility] [address] [facility] [id number] [address] [place] [phone] July, Normal , first Z34. 00 and 10 weeks gestation of Z3A.10 [facility] [address] [facility] [id number] [address] [place] [phone] July, [facility] [address] [facility] [id number] [address] [place] [phone] July, Encounter for test Z32.00 IMMUNIZATIONS No Known Immunizations SOCIAL HISTORY Never Assessed REASON FOR VISIT PLAN OF CARE VITAL SIGNS MEDICATIONS Unknown Medications RESULTS No Results PROCEDURES No Known procedures INSTRUCTIONS MEDICATIONS ADMINISTERED No Known Medications MEDICAL (GENERAL) HISTORY Type Description Date Medical History denies Medical History due date 02/14/2017
--- OUTSIDE RECORDS SUMMARY | 2019-08-03 20:40 | XMS REPORT ---
Author Author Debra KELLEY Organization [facility] Address [address] [place] [address] Care Team Providers Care Nurse Emergency Room Name Role Phone WARRENJESUSMADAN Unavailable PROBLEMS Unknown Problems ALLERGIES No Information ENCOUNTERS Encounter Location Date Diagnosis [facility] [address] [facility] [id number] [address] [place] [phone] Aug, [facility] [address] [facility] [id number] [address] [place] [address] Jun, [facility] [address] [facility] [id number] [address] [place] [address] May, [facility] [address] [facility] [id number] [address] [place] [address] May, [facility] [address] [facility] [id number] [address] [place] [address] Apr, [facility] [address] [place] [id number] [address] [place] [phone] Mar, care and examinat ion Z39.2 [facility] [address] [facility] [id number] [address] [place] [address] Mar, [facility] [address] [facility] [id number] [address] [place] [address] Jan, [facility] [address] [facility] [id number] [address] [place] [address] Jan, [facility] [address] [place] [id number] [address] [place] [address] Jan, Third trimester Z3 4.93 ; 40 weeks gestation of Z3A.40 and Irregular contractions O62.2 [facility] [address] [id number] [address] [place] [address] Jan, [facility] [address] [id number] [address] [place] [address] Jan, [facility] [address] [id number] [address] [place] [address] Jan, Third trimester Z3 4.93 and 39 weeks gestation of Z3A.39 [facility] [address] [id number] [address] [place] [address] Jan, [facility] [address] [id number] [address] [place] [address] Jan, Third trimester Z3 4.93 and 38 weeks gestation of Z3A.38 [place] [address] [facility] [id number] [address] [place] [address] Dec, 37 weeks gestation of pregna ncy Z3A.37 and Third trimester Z34.93 [facility] [address] [id number] [address] [place] [address] Dec, [facility] [address] [facility] [id number] [address] [place] [address] Dec, 36 weeks gestation of pregna ncy Z3A.36 and Third trimester Z34.93 [place] [address] [facility] [id number] [address] [place] [address] Dec, [facility] [address] [facility] [id number] [address] [place] [address] Dec, 35 weeks gestation of pregna ncy Z3A.35 and Third trimester Z34.93 [facility] [address] [id number] [address] [place] [address] Nov, 33 weeks gestation of pregna ncy Z3A.33 and Third trimester Z34.93 [facility] [address] [facility] [id number] [address] [place] [address] Nov, [place] [address] [id number] [address] [place] [phone] Nov, [place] [address] [id number] [address] [place] [address] Nov, Visit for TB skin test Z11.1 ; 31 weeks gestation of Z3A.31 ; Encounter for immunization Z23 and Third trimester Z34.93 [place] [address] [id number] [address] [place] [address] 15 Oct, 2016 27 weeks gestation of pregna ncy Z3A.27 and Second trimester Z34.92 [place] [address] [id number] [address] [place] [address] Sep, Normal in second t rimester Z34.92 ; Abnormal ultrasound O28.3 and 23 weeks gestation of Z3A.[address] [id number] [address] [place] [address] Sep, [place] [address] [facility] [id number] [address] [place] [address] Aug, [place] [address] [id number] [address] [place] [address] Aug, Normal in second t rimester Z34.92 and 19 weeks gestation of Z3A.19 [place] [address] [facility] [id number] [address] [place] [phone] 07 Aug, 2016 Encounter for dental examina tion and cleaning without abnormal findings Z01.20 [place] [address] [id number] [address] [place] [phone] Aug, [place] [address] [id number] [address] [place] [address] Aug, Normal , first Z34. 00 [place] [address] [id number] [address] [place] [address] Aug, [place] [address] [facility] [id number] [address] [place] [address] Aug, Dental examination Z01.20 [facility] [address] [facility] [id number] [address] [place] [address] Aug, [facility] [address] [facility] [id number] [address] [place] [address] July, [facility] [address] [facility] [id number] [address] [place] [address] July, Normal , first Z34. 00 and 10 weeks gestation of Z3A.10 [facility] [address] [facility] [id number] [address] [place] [address] July, [place] [address] [facility] [id number] [address] [place] [address] July, Encounter for test Z32.00 IMMUNIZATIONS No Known Immunizations SOCIAL HISTORY Never Assessed REASON FOR VISIT PLAN OF CARE VITAL SIGNS MEDICATIONS Unknown Medications RESULTS No Results PROCEDURES No Known procedures INSTRUCTIONS MEDICATIONS ADMINISTERED No Known Medications MEDICAL (GENERAL) HISTORY Type Description Date Medical History denies Medical History due date 02/14/2017
--- OUTSIDE RECORDS SUMMARY | 2019-08-03 20:40 | XMS REPORT ---
Author Author Debra KENNEDY Organization [facility] Address [address] [place] [address] Care Team Providers Care Tank Worker Name Role Phone LILY KENNEDY Unavailable PROBLEMS Unknown Problems ALLERGIES No Information ENCOUNTERS Encounter Location Date Diagnosis [facility] [address] [facility] [id number] [address] [place] [phone] Jun, [facility] [address] [facility] [id number] [address] [place] [address] May, [facility] [address] [facility] [id number] [address] [place] [address] May, [facility] [address] [facility] [id number] [address] [place] [phone] Apr, [facility] [address] [facility] [id number] [address] [place] [phone] Mar, care and examinat ion Z39.2 [facility] [address] [facility] [id number] [address] [place] [phone] Mar, [facility] [address] [facility] [id number] [address] [place] [phone] Jan, [facility] [address] [facility] [id number] [address] [place] [address] Jan, [facility] [address] [place] [id number] [address] [place] [address] Jan, Third trimester Z3 4.93 ; 40 weeks gestation of Z3A.40 and Irregular contractions O62.2 [facility] [address] [facility] [id number] [address] [place] [phone] Jan, [facility] [address] [id number] [address] [place] [address] Jan, [facility] [address] [facility] [id number] [address] [place] [address] Jan, Third trimester Z3 4.93 and 39 weeks gestation of Z3A.39 [facility] [address] [facility] [id number] [address] [place] [address] Jan, [facility] [address] [facility] [id number] [address] [place] [address] Jan, Third trimester Z3 4.93 and 38 weeks gestation of Z3A.38 [facility] [address] [id number] [address] [place] [address] Dec, 37 weeks gestation of pregna ncy Z3A.37 and Third trimester Z34.93 [facility] [address] [facility] [id number] [address] [place] [address] Dec, [facility] [address] [id number] [address] [place] [address] Dec, 36 weeks gestation of pregna ncy Z3A.36 and Third trimester Z34.93 [facility] [address] [facility] [id number] [address] [place] [address] Dec, [facility] [address] [facility] [id number] [address] [place] [address] Dec, 35 weeks gestation of pregna ncy Z3A.35 and Third trimester Z34.93 [facility] [address] [id number] [address] [place] [address] Nov, 33 weeks gestation of pregna ncy Z3A.33 and Third trimester Z34.93 [facility] [address] [id number] [address] [place] [address] Nov, [facility] [address] [facility] [id number] [address] [place] [address] Nov, [place] [address] [facility] [id number] [address] [place] [address] 12 Nov, 2016 Visit for TB skin test Z11.1 ; 31 weeks gestation of Z3A.31 ; Encounter for immunization Z23 and Third trimester Z34.93 [facility] [address] [facility] [id number] [address] [place] [address] 15 Oct, 2016 27 weeks gestation of pregna ncy Z3A.27 and Second trimester Z34.92 [place] [address] [facility] [id number] [address] [place] [address] Sep, Normal in second t rimester Z34.92 ; Abnormal ultrasound O28.3 and 23 weeks gestation of Z3A.23 [place] [address] [facility] [id number] [address] [place] [address] 18 Sep, [address] [id number] [address] [place] [address] Aug, [place] [address] [place] [id number] [address] [place] [address] Aug, Normal in second t rimester Z34.92 and 19 weeks gestation of Z3A.19 [place] [id number] [place] [address] 07 Aug, 2016 Encounter for dental examina tion and cleaning without abnormal findings Z01.20 [place] [address] [facility] [id number] [address] [place] [address] Aug, [address] [id number] [address] [place] [address] Aug, Normal , first Z34. 00 [place] [id number] [address] [place] [address] Aug, [place] [address] [facility] [id number] [address] [place] [address] Aug, Dental examination Z01.20 [place] [address] [facility] [id number] [address] [place] [address] Aug, [facility] [address] [facility] [id number] [address] [place] [phone] July, [facility] [address] [facility] [id number] [address] [place] [address] July, Normal , first Z34. 00 and 10 weeks gestation of Z3A.10 [place] [address] [facility] [id number] [address] [place] [address] July, [place] [address] [facility] [id number] [address] [place] [address] July, Encounter for test Z32.00 IMMUNIZATIONS No Known Immunizations SOCIAL HISTORY Never Assessed REASON FOR VISIT PLAN OF CARE VITAL SIGNS MEDICATIONS Unknown Medications RESULTS No Results PROCEDURES No Known procedures INSTRUCTIONS MEDICATIONS ADMINISTERED No Known Medications MEDICAL (GENERAL) HISTORY Type Description Date Medical History denies Medical History due date 02/14/2017
--- OUTSIDE RECORDS SUMMARY | 2019-08-03 20:40 | XMS REPORT ---
Author Author Debra KENNEDY Organization [facility] Address [address] [place] [address] Care Team Providers Care Linter Tender Name Role Phone LILY KENNEDY Unavailable PROBLEMS Unknown Problems ALLERGIES No Information ENCOUNTERS Encounter Location Date Diagnosis [facility] [address] [place] [id number] [address] [place] [address] Aug, [facility] [address] [place] [id number] [address] [place] [address] Jun, [facility] [address] [place] [id number] [address] [place] [address] May, [facility] [address] [place] [id number] [address] [place] [address] May, [facility] [address] [place] [id number] [address] [place] [address] Apr, [facility] [address] [place] [id number] [address] [place] [address] Mar, care and examinat ion Z39.2 [facility] [address] [place] [id number] [address] [place] [address] Mar, [facility] [address] [facility] [id number] [address] [place] [address] Jan, [facility] [address] [place] [id number] [address] [place] [address] Jan, [facility] [address] [place] [id number] [address] [place] [address] Jan, Third trimester Z3 4.93 ; 40 weeks gestation of Z3A.40 and Irregular contractions O62.2 [facility] [address] [id number] [address] [place] [address] Jan, [facility] [address] [id number] [address] [place] [address] Jan, [facility] [address] [facility] [id number] [address] [place] [address] Jan, Third trimester Z3 4.93 and 39 weeks gestation of Z3A.39 [facility] [address] [id number] [address] [place] [address] Jan, [facility] [address] [id number] [address] [place] [address] Jan, Third trimester Z3 4.93 and 38 weeks gestation of Z3A.38 [facility] [address] [facility] [id number] [address] [place] [address] Dec, 37 weeks gestation of pregna ncy Z3A.37 and Third trimester Z34.93 [facility] [address] [id number] [address] [place] [address] Dec, [facility] [address] [facility] [id number] [address] [place] [address] Dec, 36 weeks gestation of pregna ncy Z3A.36 and Third trimester Z34.93 [facility] [address] [facility] [id number] [address] [place] [address] Dec, [facility] [address] [facility] [id number] [address] [place] [address] Dec, 35 weeks gestation of pregna ncy Z3A.35 and Third trimester Z34.93 [facility] [address] [id number] [address] [place] [address] Nov, 33 weeks gestation of pregna ncy Z3A.33 and Third trimester Z34.93 [facility] [address] [facility] [id number] [address] [place] [address] Nov, [facility] [address] [id number] [address] [place] [address] Nov, [place] [address] [id number] [address] [place] [address] Nov, Visit for TB skin test Z11.1 ; 31 weeks gestation of Z3A.31 ; Encounter for immunization Z23 and Third trimester Z34.93 [place] [address] [id number] [address] [place] [address] 15 Oct, 2016 27 weeks gestation of pregna ncy Z3A.27 and Second trimester Z34.92 [place] [address] [id number] [address] [place] [address] Sep, Normal in second t rimester Z34.92 ; Abnormal ultrasound O28.3 and 23 weeks gestation of Z3A.23 [place] [address] [facility] [id number] [address] [place] [address] Sep, [place] [address] [id number] [address] [place] [address] Aug, [place] [address] [id number] [address] [place] [address] Aug, Normal in second t [facility] Z34.92 and 19 weeks gestation of Z3A.19 [place] [address] [facility] [id number] [address] [place] [phone] 07 Aug, 2016 Encounter for dental examina tion and cleaning without abnormal findings Z01.20 [place] [address] [id number] [address] [place] [address] Aug, [place] [address] [id number] [address] [place] [address] Aug, Normal , first Z34. 00 [place] [address] [id number] [address] [place] [address] Aug, [place] [address] [id number] [address] [place] [phone] Aug, Dental examination Z01.20 [facility] [address] [facility] [id number] [address] [place] [address] Aug, [facility] [address] [facility] [id number] [address] [place] [phone] July, [facility] [address] [facility] [id number] [address] [place] [address] July, Normal , first Z34. 00 and 10 weeks gestation of Z3A.10 [facility] [address] [facility] [id number] [address] [place] [address] July, [facility] [address] [facility] [id number] [address] [place] [phone] July, Encounter for test Z32.00 IMMUNIZATIONS No Known Immunizations SOCIAL HISTORY Never Assessed REASON FOR VISIT PLAN OF CARE VITAL SIGNS MEDICATIONS Unknown Medications RESULTS No Results PROCEDURES No Known procedures INSTRUCTIONS MEDICATIONS ADMINISTERED No Known Medications MEDICAL (GENERAL) HISTORY Type Description Date Medical History denies Medical History due date 02/14/2017
--- OUTSIDE RECORDS SUMMARY | 2019-08-03 20:40 | XMS REPORT ---
Author Author Debra KENNEDY Organization [facility] Address [address] [place] [address] Care Team Providers Care Field Service Consultant Name Role Phone LILY KENNEDY Unavailable PROBLEMS Unknown Problems ALLERGIES No Information ENCOUNTERS Encounter Location Date Diagnosis [facility] [address] [facility] [id number] [address] [place] [phone] Jun, [facility] [address] [facility] [id number] [address] [place] [phone] May, [facility] [address] [facility] [id number] [address] [place] [phone] May, [facility] [address] [facility] [id number] [address] [place] [phone] Apr, [facility] [address] [facility] [id number] [address] [place] [phone] Mar, care and examinat ion Z39.2 [facility] [address] [facility] [id number] [address] [place] [phone] Mar, [facility] [address] [facility] [id number] [address] [place] [phone] Jan, [facility] [address] [facility] [id number] [address] [place] [phone] Jan, [facility] [address] [place] [id number] [address] [place] [phone] Jan, Third trimester Z3 4.93 ; 40 weeks gestation of Z3A.40 and Irregular contractions O62.2 [facility] [address] [facility] [id number] [address] [place] [phone] Jan, [facility] [address] [id number] [address] [place] [phone] Jan, [facility] [address] [facility] [id number] [address] [place] [phone] Jan, Third trimester Z3 4.93 and 39 weeks gestation of Z3A.39 [facility] [address] [facility] [id number] [address] [place] [phone] Jan, [facility] [address] [facility] [id number] [address] [place] [phone] Jan, Third trimester Z3 4.93 and 38 weeks gestation of Z3A.38 [facility] [address] [id number] [address] [place] [phone] Dec, 37 weeks gestation of pregna ncy Z3A.37 and Third trimester Z34.93 [facility] [address] [facility] [id number] [address] [place] [phone] Dec, [facility] [address] [id number] [address] [place] [phone] Dec, 36 weeks gestation of pregna ncy Z3A.36 and Third trimester Z34.93 [facility] [address] [facility] [id number] [address] [place] [phone] Dec, [facility] [address] [facility] [id number] [address] [place] [phone] Dec, 35 weeks gestation of pregna ncy Z3A.35 and Third trimester Z34.93 [facility] [address] [id number] [address] [place] [phone] Nov, 33 weeks gestation of pregna ncy Z3A.33 and Third trimester Z34.93 [facility] [address] [id number] [address] [place] [phone] Nov, [facility] [address] [facility] [id number] [address] [place] [phone] Nov, [place] [address] [facility] [id number] [address] [place] [phone] 12 Nov, 2016 Visit for TB skin test Z11.1 ; 31 weeks gestation of Z3A.31 ; Encounter for immunization Z23 and Third trimester Z34.93 [facility] [address] [facility] [id number] [address] [place] [phone] 15 Oct, 2016 27 weeks gestation of pregna ncy Z3A.27 and Second trimester Z34.92 [place] [address] [facility] [id number] [address] [place] [phone] Sep, Normal in second t rimester Z34.92 ; Abnormal ultrasound O28.3 and 23 weeks gestation of Z3A.23 [place] [address] [facility] [id number] [address] [place] [phone] 18 Sep, [address] [id number] [address] [place] [phone] Aug, [place] [address] [place] [id number] [address] [place] [phone] Aug, Normal in second t rimester Z34.92 and 19 weeks gestation of Z3A.19 [place] [id number] [place] [phone] 07 Aug, 2016 Encounter for dental examina tion and cleaning without abnormal findings Z01.20 [place] [address] [facility] [id number] [address] [place] [phone] Aug, [address] [id number] [address] [place] [phone] Aug, Normal , first Z34. 00 [place] [id number] [address] [place] [phone] Aug, [place] [address] [facility] [id number] [address] [place] [phone] Aug, Dental examination Z01.20 [place] [address] [facility] [id number] [address] [place] [phone] Aug, [facility] [address] [facility] [id number] [address] [place] [phone] July, [facility] [address] [facility] [id number] [address] [place] [phone] July, Normal , first Z34. 00 and 10 weeks gestation of Z3A.10 [place] [address] [facility] [id number] [address] [place] [phone] July, [place] [address] [facility] [id number] [address] [place] [phone] July, Encounter for test Z32.00 IMMUNIZATIONS No Known Immunizations SOCIAL HISTORY Never Assessed REASON FOR VISIT PLAN OF CARE VITAL SIGNS MEDICATIONS Unknown Medications RESULTS No Results PROCEDURES No Known procedures INSTRUCTIONS MEDICATIONS ADMINISTERED No Known Medications MEDICAL (GENERAL) HISTORY Type Description Date Medical History denies Medical History due date 02/14/2017
--- OUTSIDE RECORDS SUMMARY | 2019-08-03 20:40 | XMS REPORT ---
Author Author Debra KENNEDY Organization [facility] Address [address] [place] [address] Care Team Providers Care Technical Intern Name Role Phone LILY KENNEDY Unavailable PROBLEMS Unknown Problems ALLERGIES No Information ENCOUNTERS Encounter Location Date Diagnosis [facility] [address] [facility] [id number] [address] [place] [phone] Jun, [facility] [address] [facility] [id number] [address] [place] [phone] May, [facility] [address] [facility] [id number] [address] [place] [phone] May, [facility] [address] [facility] [id number] [address] [place] [phone] Apr, [facility] [address] [facility] [id number] [address] [place] [phone] Mar, care and examinat ion Z39.2 [facility] [address] [facility] [id number] [address] [place] [phone] Mar, [facility] [address] [facility] [id number] [address] [place] [phone] Jan, [facility] [address] [facility] [id number] [address] [place] [phone] Jan, [facility] [address] [place] [id number] [address] [place] [phone] Jan, Third trimester Z3 4.93 ; 40 weeks gestation of Z3A.40 and Irregular contractions O62.2 [facility] [address] [facility] [id number] [address] [place] [phone] Jan, [facility] [address] [id number] [address] [place] [phone] Jan, [facility] [address] [facility] [id number] [address] [place] [phone] Jan, Third trimester Z3 4.93 and 39 weeks gestation of Z3A.39 [facility] [address] [facility] [id number] [address] [place] [phone] Jan, [facility] [address] [facility] [id number] [address] [place] [phone] Jan, Third trimester Z3 4.93 and 38 weeks gestation of Z3A.38 [facility] [address] [id number] [address] [place] [phone] Dec, 37 weeks gestation of pregna ncy Z3A.37 and Third trimester Z34.93 [facility] [address] [facility] [id number] [address] [place] [phone] Dec, [facility] [address] [id number] [address] [place] [phone] Dec, 36 weeks gestation of pregna ncy Z3A.36 and Third trimester Z34.93 [facility] [address] [facility] [id number] [address] [place] [phone] Dec, [facility] [address] [facility] [id number] [address] [place] [phone] Dec, 35 weeks gestation of pregna ncy Z3A.35 and Third trimester Z34.93 [facility] [address] [id number] [address] [place] [phone] Nov, 33 weeks gestation of pregna ncy Z3A.33 and Third trimester Z34.93 [facility] [address] [id number] [address] [place] [phone] Nov, [facility] [address] [facility] [id number] [address] [place] [phone] Nov, [place] [address] [facility] [id number] [address] [place] [phone] 12 Nov, 2016 Visit for TB skin test Z11.1 ; 31 weeks gestation of Z3A.31 ; Encounter for immunization Z23 and Third trimester Z34.93 [facility] [address] [facility] [id number] [address] [place] [phone] 15 Oct, 2016 27 weeks gestation of pregna ncy Z3A.27 and Second trimester Z34.92 [place] [address] [facility] [id number] [address] [place] [phone] Sep, Normal in second t rimester Z34.92 ; Abnormal ultrasound O28.3 and 23 weeks gestation of Z3A.23 [place] [address] [facility] [id number] [address] [place] [phone] 18 Sep, [address] [id number] [address] [place] [phone] Aug, [place] [address] [place] [id number] [address] [place] [phone] Aug, Normal in second t rimester Z34.92 and 19 weeks gestation of Z3A.19 [place] [id number] [place] [phone] 07 Aug, 2016 Encounter for dental examina tion and cleaning without abnormal findings Z01.20 [place] [address] [facility] [id number] [address] [place] [phone] Aug, [address] [id number] [address] [place] [phone] Aug, Normal , first Z34. 00 [place] [id number] [address] [place] [phone] Aug, [place] [address] [facility] [id number] [address] [place] [phone] Aug, Dental examination Z01.20 [place] [address] [facility] [id number] [address] [place] [phone] Aug, [facility] [address] [facility] [id number] [address] [place] [phone] July, [facility] [address] [facility] [id number] [address] [place] [phone] July, Normal , first Z34. 00 and 10 weeks gestation of Z3A.10 [facility] [address] [facility] [id number] [address] [place] [phone] July, [facility] [address] [facility] [id number] [address] [place] [phone] July, Encounter for test Z32.00 IMMUNIZATIONS No Known Immunizations SOCIAL HISTORY Never Assessed REASON FOR VISIT OB f/u-1 wk -- lucy stein PLAN OF CARE Activity Details Follow Up 1 Week Reason: VITAL SIGNS Height 62 in 2016-12-28 Weight 150.9 lbs 2016-12-28 Temperature 97.6 degrees Fahrenheit 2016-12-28 Heart Rate 78 bpm 2016-12-28 Respiratory Rate 18 2016-12-28 BMI 27.6 kg/m2 2016-12-28 Blood pressure systolic 120 mmHg 2016-12-28 Blood pressure diastolic 76 mmHg 2016-12-28 MEDICATIONS Medication Instructions Dosage Frequency Start Date End Date Duration S tatus Zyrtec Allergy Active 27-1 MG Active RESULTS Name Result Date Reference Range UA OB DIP (IN HOUSE) 2016-12-28 Glucose neg Protein trace CULTURE, GBS 2016-12-28 Strep Gp B Culture Negative Negative PROCEDURES Procedure Date Ordered Result Body Site URINE-NO MICRO Dec 28, 2016 DETECT AGNT MULT, DNA, AMPLI Dec 28, 2016 INSTRUCTIONS MEDICATIONS ADMINISTERED No Known Medications MEDICAL (GENERAL) HISTORY Type Description Date Medical History denies Medical History due date 02/14/2017
--- OUTSIDE RECORDS SUMMARY | 2019-08-03 20:40 | XMS REPORT ---
Author Author Debra KENNEDY Organization [facility] Address [address] [place] [address] Care Team Providers Care Industrial Tractor Driver Name Role Phone LILY KENNEDY Unavailable PROBLEMS Unknown Problems ALLERGIES No Information ENCOUNTERS Encounter Location Date Diagnosis [facility] [address] [id number] [address] [place] [phone] Oct, [facility] [address] [id number] [address] [place] [phone] Aug, [facility] [address] [id number] [address] [place] [phone] Jun, [facility] [address] [id number] [address] [place] [phone] May, [facility] [address] [id number] [address] [place] [phone] May, [facility] [address] [id number] [address] [place] [phone] Apr, [facility] [address] [id number] [address] [place] [phone] Mar, care and examinat ion Z39.2 [facility] [address] [id number] [address] [place] [phone] Mar, [facility] [address] [id number] [address] [place] [phone] Jan, [facility] [address] [id number] [address] [place] [phone] Jan, [facility] [address] [id number] [address] [place] [phone] Jan, Third trimester Z3 4.93 ; 40 weeks gestation of Z3A.40 and Irregular contractions O62.2 [facility] [address] [id number] [address] [place] [phone] Jan, [facility] [address] [id number] [address] [place] [phone] Jan, [facility] [address] [id number] [address] [place] [phone] Jan, Third trimester Z3 4.93 and 39 weeks gestation of Z3A.39 [facility] [address] [id number] [address] [place] [phone] Jan, [facility] [address] [id number] [address] [place] [phone] Jan, Third trimester Z3 4.93 and 38 weeks gestation of Z3A.38 [facility] [address] [id number] [address] [place] [phone] Dec, 37 weeks gestation of pregna ncy Z3A.37 and Third trimester Z34.93 [facility] [address] [id number] [address] [place] [phone] Dec, [facility] [address] [id number] [address] [place] [phone] Dec, 36 weeks gestation of pregna ncy Z3A.36 and Third trimester Z34.93 [facility] [address] [id number] [address] [place] [phone] Dec, [facility] [address] [id number] [address] [place] [phone] Dec, 35 weeks gestation of pregna ncy Z3A.35 and Third trimester Z34.93 [facility] [address] [id number] [address] [place] [phone] Nov, 33 weeks gestation of pregna ncy Z3A.33 and Third trimester Z34.93 [facility] [address] [id number] [address] [place] [phone] Nov, [place] [address] [id number] [address] [place] [phone] Nov, [place] [address] [facility] [id number] [address] [place] [phone] Nov, Visit for TB skin test Z11.1 ; 31 weeks gestation of Z3A.31 ; Encounter for immunization Z23 and Third trimester Z34.93 [place] [address] [id number] [address] [place] [phone] Oct, 27 weeks gestation of pregna ncy Z3A.27 and Second trimester Z34.92 [place] [address] [facility] [id number] [address] [place] [phone] Sep, Normal in second t rimester Z34.92 ; Abnormal ultrasound O28.3 and 23 weeks gestation of Z3A.23 [place] [address] [facility] [id number] [address] [place] [phone] Sep, [place] [address] [facility] [id number] [address] [place] [phone] Aug, [place] [address] [facility] [id number] [address] [place] [phone] Aug, Normal in second t rimester Z34.92 and 19 weeks gestation of Z3A.19 [place] [address] [facility] [id number] [address] [place] [phone] Aug, Encounter for dental examina tion and cleaning without abnormal findings Z01.20 [place] [address] [id number] [address] [place] [phone] Aug, [place] [address] [facility] [id number] [address] [place] [phone] Aug, Normal , first Z34. [address] [id number] [address] [place] [phone] Aug, [facility] [address] [facility] [id number] [address] [place] [phone] Aug, Dental examination Z01.20 [facility] [address] [facility] [id number] [address] [place] [phone] Aug, [facility] [address] [facility] [id number] [address] [place] [phone] July, [facility] [address] [facility] [id number] [address] [place] [phone] July, Normal , first Z34. 00 and 10 weeks gestation of Z3A.10 [facility] [address] [facility] [id number] [address] [place] [phone] July, [facility] [address] [facility] [id number] [address] [place] [phone] July, Encounter for test Z32.00 IMMUNIZATIONS No Known Immunizations SOCIAL HISTORY Never Assessed REASON FOR VISIT PLAN OF CARE VITAL SIGNS MEDICATIONS Unknown Medications RESULTS No Results PROCEDURES No Known procedures INSTRUCTIONS MEDICATIONS ADMINISTERED No Known Medications MEDICAL (GENERAL) HISTORY Type Description Date Medical History denies Medical History due date 02/14/2017
--- OUTSIDE RECORDS SUMMARY | 2019-08-03 20:40 | XMS REPORT ---
Author Author Debra KENNEDY Organization [facility] Address [address] [place] [address] Care Team Providers Care Filter Plant Supervisor Name Role Phone LILY KENNEDY Unavailable PROBLEMS Unknown Problems ALLERGIES No Information ENCOUNTERS Encounter Location Date Diagnosis [facility] [address] [facility] [id number] [address] [place] [phone] Jun, [facility] [address] [facility] [id number] [address] [place] [address] May, [facility] [address] [facility] [id number] [address] [place] [address] May, [facility] [address] [facility] [id number] [address] [place] [address] Apr, [facility] [address] [facility] [id number] [address] [place] [address] Mar, care and examinat ion Z39.2 [facility] [address] [facility] [id number] [address] [place] [address] Mar, [facility] [address] [facility] [id number] [address] [place] [address] Jan, [facility] [address] [facility] [id number] [address] [place] [address] Jan, [facility] [address] [place] [id number] [address] [place] [address] Jan, Third trimester Z3 4.93 ; 40 weeks gestation of Z3A.40 and Irregular contractions O62.2 [facility] [address] [facility] [id number] [address] [place] [phone] Jan, [facility] [address] [id number] [address] [place] [address] Jan, [facility] [address] [facility] [id number] [address] [place] [address] Jan, Third trimester Z3 4.93 and 39 weeks gestation of Z3A.39 [facility] [address] [facility] [id number] [address] [place] [address] Jan, [facility] [address] [facility] [id number] [address] [place] [address] Jan, Third trimester Z3 4.93 and 38 weeks gestation of Z3A.38 [facility] [address] [id number] [address] [place] [address] Dec, 37 weeks gestation of pregna ncy Z3A.37 and Third trimester Z34.93 [facility] [address] [facility] [id number] [address] [place] [address] Dec, [facility] [address] [id number] [address] [place] [address] Dec, 36 weeks gestation of pregna ncy Z3A.36 and Third trimester Z34.93 [facility] [address] [facility] [id number] [address] [place] [address] Dec, [facility] [address] [facility] [id number] [address] [place] [address] Dec, 35 weeks gestation of pregna ncy Z3A.35 and Third trimester Z34.93 [facility] [address] [id number] [address] [place] [address] Nov, 33 weeks gestation of pregna ncy Z3A.33 and Third trimester Z34.93 [facility] [address] [id number] [address] [place] [address] Nov, [facility] [address] [facility] [id number] [address] [place] [address] Nov, [place] [address] [facility] [id number] [address] [place] [address] 12 Nov, 2016 Visit for TB skin test Z11.1 ; 31 weeks gestation of Z3A.31 ; Encounter for immunization Z23 and Third trimester Z34.93 [facility] [address] [facility] [id number] [address] [place] [address] 15 Oct, 2016 27 weeks gestation of pregna ncy Z3A.27 and Second trimester Z34.92 [place] [address] [facility] [id number] [address] [place] [address] Sep, Normal in second t rimester Z34.92 ; Abnormal ultrasound O28.3 and 23 weeks gestation of Z3A.23 [place] [address] [facility] [id number] [address] [place] [address] 18 Sep, [address] [id number] [address] [place] [address] Aug, [place] [address] [place] [id number] [address] [place] [address] Aug, Normal in second t rimester Z34.92 and 19 weeks gestation of Z3A.19 [place] [id number] [place] [address] 07 Aug, 2016 Encounter for dental examina tion and cleaning without abnormal findings Z01.20 [place] [address] [facility] [id number] [address] [place] [address] Aug, [address] [id number] [address] [place] [address] Aug, Normal , first Z34. 00 [place] [id number] [address] [place] [address] Aug, [place] [address] [facility] [id number] [address] [place] [address] Aug, Dental examination Z01.20 [place] [address] [facility] [id number] [address] [place] [address] Aug, [facility] [address] [facility] [id number] [address] [place] [address] July, [facility] [address] [facility] [id number] [address] [place] [address] July, Normal , first Z34. 00 and 10 weeks gestation of Z3A.10 [place] [address] [facility] [id number] [address] [place] [address] July, [place] [address] [facility] [id number] [address] [place] [address] July, Encounter for test Z32.00 IMMUNIZATIONS No Known Immunizations SOCIAL HISTORY Never Assessed REASON FOR VISIT PLAN OF CARE VITAL SIGNS MEDICATIONS Unknown Medications RESULTS No Results PROCEDURES No Known procedures INSTRUCTIONS MEDICATIONS ADMINISTERED No Known Medications MEDICAL (GENERAL) HISTORY Type Description Date Medical History denies Medical History due date 02/14/2017
--- OUTSIDE RECORDS SUMMARY | 2019-08-03 20:40 | XMS REPORT ---
Author Author Debra KENNEDY Organization [facility] Address [address] [place] [address] Care Team Providers Care Pickle Maker Name Role Phone LILY KENNEDY Unavailable PROBLEMS Unknown Problems ALLERGIES No Information ENCOUNTERS Encounter Location Date Diagnosis [facility] [address] [facility] [id number] [address] [place] [phone] Jun, [facility] [address] [facility] [id number] [address] [place] [phone] May, [facility] [address] [facility] [id number] [address] [place] [address] May, [facility] [address] [facility] [id number] [address] [place] [address] Apr, [facility] [address] [facility] [id number] [address] [place] [address] Mar, care and examinat ion Z39.2 [facility] [address] [facility] [id number] [address] [place] [address] Mar, [facility] [address] [facility] [id number] [address] [place] [phone] Jan, [facility] [address] [facility] [id number] [address] [place] [phone] Jan, [facility] [address] [place] [id number] [address] [place] [address] Jan, Third trimester Z3 4.93 ; 40 weeks gestation of Z3A.40 and Irregular contractions O62.2 [facility] [address] [facility] [id number] [address] [place] [address] Jan, [facility] [address] [id number] [address] [place] [phone] Jan, [facility] [address] [facility] [id number] [address] [place] [address] Jan, Third trimester Z3 4.93 and 39 weeks gestation of Z3A.39 [facility] [address] [facility] [id number] [address] [place] [address] Jan, [facility] [address] [facility] [id number] [address] [place] [address] Jan, Third trimester Z3 4.93 and 38 weeks gestation of Z3A.38 [facility] [address] [id number] [address] [place] [address] Dec, 37 weeks gestation of pregna ncy Z3A.37 and Third trimester Z34.93 [facility] [address] [facility] [id number] [address] [place] [phone] Dec, [facility] [address] [id number] [address] [place] [address] Dec, 36 weeks gestation of pregna ncy Z3A.36 and Third trimester Z34.93 [facility] [address] [facility] [id number] [address] [place] [address] Dec, [facility] [address] [facility] [id number] [address] [place] [address] Dec, 35 weeks gestation of pregna ncy Z3A.35 and Third trimester Z34.93 [facility] [address] [id number] [address] [place] [address] Nov, 33 weeks gestation of pregna ncy Z3A.33 and Third trimester Z34.93 [facility] [address] [id number] [address] [place] [phone] Nov, [facility] [address] [facility] [id number] [address] [place] [address] Nov, [place] [address] [facility] [id number] [address] [place] [phone] 12 Nov, 2016 Visit for TB skin test Z11.1 ; 31 weeks gestation of Z3A.31 ; Encounter for immunization Z23 and Third trimester Z34.93 [facility] [address] [facility] [id number] [address] [place] [address] 15 Oct, 2016 27 weeks gestation of pregna ncy Z3A.27 and Second trimester Z34.92 [place] [address] [facility] [id number] [address] [place] [address] Sep, Normal in second t rimester Z34.92 ; Abnormal ultrasound O28.3 and 23 weeks gestation of Z3A.23 [place] [address] [facility] [id number] [address] [place] [address] 18 Sep, [address] [id number] [address] [place] [phone] Aug, [place] [address] [place] [id number] [address] [place] [address] Aug, Normal in second t rimester Z34.92 and 19 weeks gestation of Z3A.19 [place] [id number] [place] [phone] 07 Aug, 2016 Encounter for dental examina tion and cleaning without abnormal findings Z01.20 [place] [address] [facility] [id number] [address] [place] [address] Aug, [address] [id number] [address] [place] [phone] Aug, Normal , first Z34. 00 [place] [id number] [address] [place] [address] Aug, [place] [address] [facility] [id number] [address] [place] [phone] Aug, Dental examination Z01.20 [place] [address] [facility] [id number] [address] [place] [phone] Aug, [facility] [address] [facility] [id number] [address] [place] [phone] July, [facility] [address] [facility] [id number] [address] [place] [phone] July, Normal , first Z34. 00 and 10 weeks gestation of Z3A.10 [place] [address] [facility] [id number] [address] [place] [address] July, [place] [address] [facility] [id number] [address] [place] [address] July, Encounter for test Z32.00 IMMUNIZATIONS No Known Immunizations SOCIAL HISTORY Never Assessed REASON FOR VISIT PLAN OF CARE VITAL SIGNS MEDICATIONS Unknown Medications RESULTS No Results PROCEDURES No Known procedures INSTRUCTIONS MEDICATIONS ADMINISTERED No Known Medications MEDICAL (GENERAL) HISTORY Type Description Date Medical History denies Medical History due date 02/14/2017
--- OUTSIDE RECORDS SUMMARY | 2019-08-03 20:40 | XMS REPORT ---
Author Author Debra KENNEDY Organization [facility] Address [address] [place] [address] Care Team Providers Care Fly Tier Name Role Phone LILY KENNEDY Unavailable PROBLEMS Unknown Problems ALLERGIES No Information ENCOUNTERS Encounter Location Date Diagnosis [facility] [address] [place] [id number] [address] [place] [phone] Aug, [facility] [address] [place] [id number] [address] [place] [phone] Jun, [facility] [address] [place] [id number] [address] [place] [address] May, [facility] [address] [place] [id number] [address] [place] [phone] May, [facility] [address] [place] [id number] [address] [place] [phone] Apr, [facility] [address] [place] [id number] [address] [place] [phone] Mar, care and examinat ion Z39.2 [facility] [address] [place] [id number] [address] [place] [address] Mar, [facility] [address] [place] [id number] [address] [place] [address] Jan, [facility] [address] [place] [id number] [address] [place] [address] Jan, [facility] [address] [place] [id number] [address] [place] [address] Jan, Third trimester Z3 4.93 ; 40 weeks gestation of Z3A.40 and Irregular contractions O62.2 [facility] [address] [id number] [address] [place] [phone] Jan, [facility] [address] [id number] [address] [place] [address] Jan, [facility] [address] [facility] [id number] [address] [place] [address] Jan, Third trimester Z3 4.93 and 39 weeks gestation of Z3A.39 [facility] [address] [id number] [address] [place] [address] Jan, [facility] [address] [id number] [address] [place] [address] Jan, Third trimester Z3 4.93 and 38 weeks gestation of Z3A.38 [facility] [address] [facility] [id number] [address] [place] [address] Dec, 37 weeks gestation of pregna ncy Z3A.37 and Third trimester Z34.93 [facility] [address] [id number] [address] [place] [phone] Dec, [facility] [address] [facility] [id number] [address] [place] [phone] Dec, 36 weeks gestation of pregna ncy Z3A.36 and Third trimester Z34.93 [facility] [address] [facility] [id number] [address] [place] [phone] Dec, [facility] [address] [facility] [id number] [address] [place] [address] Dec, 35 weeks gestation of pregna ncy Z3A.35 and Third trimester Z34.93 [facility] [address] [id number] [address] [place] [address] Nov, 33 weeks gestation of pregna ncy Z3A.33 and Third trimester Z34.93 [facility] [address] [facility] [id number] [address] [place] [phone] Nov, [facility] [address] [id number] [address] [place] [phone] 12 Nov, 2016 [place] [address] [id number] [address] [place] [address] 12 Nov, 2016 Visit for TB skin test Z11.1 ; 31 weeks gestation of Z3A.31 ; Encounter for immunization Z23 and Third trimester Z34.93 [place] [address] [id number] [address] [place] [phone] 15 Oct, 2016 27 weeks gestation of pregna ncy Z3A.27 and Second trimester Z34.92 [place] [address] [id number] [address] [place] [phone] 18 Sep, 2016 Normal in second t rimester Z34.92 ; Abnormal ultrasound O28.3 and 23 weeks gestation of Z3A.23 [place] [address] [id number] [address] [place] [address] 18 Sep, 2016 [place] [address] [id number] [address] [place] [phone] Aug, [place] [address] [id number] [address] [place] [phone] Aug, Normal in second t [facility] Z34.92 and 19 weeks gestation of Z3A.19 [place] [address] [id number] [address] [place] [phone] 07 Aug, 2016 Encounter for dental examina tion and cleaning without abnormal findings Z01.20 [place] [address] [id number] [address] [place] [address] Aug, [place] [address] [id number] [address] [place] [address] Aug, Normal , first Z34. 00 [place] [address] [id number] [address] [place] [address] Aug, Dental examination Z01.20 [place] [address] [id number] [address] [place] [phone] Aug, [facility] [address] [facility] [id number] [address] [place] [phone] Aug, [facility] [address] [facility] [id number] [address] [place] [phone] July, [facility] [address] [facility] [id number] [address] [place] [address] July, Normal , first Z34. 00 and 10 weeks gestation of Z3A.10 [facility] [address] [facility] [id number] [address] [place] [phone] July, [facility] [address] [facility] [id number] [address] [place] [phone] July, Encounter for test Z32.00 IMMUNIZATIONS No Known Immunizations SOCIAL HISTORY Never Assessed REASON FOR VISIT PLAN OF CARE VITAL SIGNS MEDICATIONS Unknown Medications RESULTS No Results PROCEDURES No Known procedures INSTRUCTIONS MEDICATIONS ADMINISTERED No Known Medications MEDICAL (GENERAL) HISTORY Type Description Date Medical History denies Medical History due date 02/14/2017
--- OUTSIDE RECORDS SUMMARY | 2019-08-03 20:41 | XMS REPORT ---
Author Author Debra KENNEDY Organization [facility] Address [address] [place] [address] Care Team Providers Care Disaster Recovery Manager Name Role Phone LILY KENNEDY Unavailable PROBLEMS Unknown Problems ALLERGIES No Information ENCOUNTERS Encounter Location Date Diagnosis [facility] [address] [facility] [id number] [address] [place] [phone] Jun, [facility] [address] [facility] [id number] [address] [place] [phone] May, [facility] [address] [facility] [id number] [address] [place] [phone] May, [facility] [address] [facility] [id number] [address] [place] [phone] Apr, [facility] [address] [facility] [id number] [address] [place] [phone] Mar, care and examinat ion Z39.2 [facility] [address] [facility] [id number] [address] [place] [phone] Mar, [facility] [address] [facility] [id number] [address] [place] [phone] Jan, [facility] [address] [facility] [id number] [address] [place] [phone] Jan, [facility] [address] [place] [id number] [address] [place] [phone] Jan, Third trimester Z3 4.93 ; 40 weeks gestation of Z3A.40 and Irregular contractions O62.2 [facility] [address] [facility] [id number] [address] [place] [phone] Jan, [facility] [address] [id number] [address] [place] [phone] Jan, [facility] [address] [facility] [id number] [address] [place] [phone] Jan, Third trimester Z3 4.93 and 39 weeks gestation of Z3A.39 [facility] [address] [facility] [id number] [address] [place] [phone] Jan, [facility] [address] [facility] [id number] [address] [place] [phone] Jan, Third trimester Z3 4.93 and 38 weeks gestation of Z3A.38 [facility] [address] [id number] [address] [place] [phone] Dec, 37 weeks gestation of pregna ncy Z3A.37 and Third trimester Z34.93 [facility] [address] [facility] [id number] [address] [place] [phone] Dec, [facility] [address] [id number] [address] [place] [phone] Dec, 36 weeks gestation of pregna ncy Z3A.36 and Third trimester Z34.93 [facility] [address] [facility] [id number] [address] [place] [phone] Dec, [facility] [address] [facility] [id number] [address] [place] [phone] Dec, 35 weeks gestation of pregna ncy Z3A.35 and Third trimester Z34.93 [facility] [address] [id number] [address] [place] [phone] Nov, 33 weeks gestation of pregna ncy Z3A.33 and Third trimester Z34.93 [facility] [address] [id number] [address] [place] [phone] Nov, [facility] [address] [facility] [id number] [address] [place] [phone] Nov, [place] [address] [facility] [id number] [address] [place] [phone] 12 Nov, 2016 Visit for TB skin test Z11.1 ; 31 weeks gestation of Z3A.31 ; Encounter for immunization Z23 and Third trimester Z34.93 [facility] [address] [facility] [id number] [address] [place] [phone] 15 Oct, 2016 27 weeks gestation of pregna ncy Z3A.27 and Second trimester Z34.92 [place] [address] [facility] [id number] [address] [place] [phone] Sep, Normal in second t rimester Z34.92 ; Abnormal ultrasound O28.3 and 23 weeks gestation of Z3A.23 [place] [address] [facility] [id number] [address] [place] [phone] 18 Sep, [address] [id number] [address] [place] [phone] Aug, [place] [address] [place] [id number] [address] [place] [phone] Aug, Normal in second t rimester Z34.92 and 19 weeks gestation of Z3A.19 [place] [id number] [place] [phone] 07 Aug, 2016 Encounter for dental examina tion and cleaning without abnormal findings Z01.20 [place] [address] [facility] [id number] [address] [place] [phone] Aug, [address] [id number] [address] [place] [phone] Aug, Normal , first Z34. 00 [place] [id number] [address] [place] [phone] Aug, [place] [address] [facility] [id number] [address] [place] [phone] Aug, Dental examination Z01.20 [place] [address] [facility] [id number] [address] [place] [phone] Aug, [facility] [address] [facility] [id number] [address] [place] [phone] July, [facility] [address] [facility] [id number] [address] [place] [phone] July, Normal , first Z34. 00 and 10 weeks gestation of Z3A.10 [facility] [address] [facility] [id number] [address] [place] [phone] July, [facility] [address] [facility] [id number] [address] [place] [phone] July, Encounter for test Z32.00 IMMUNIZATIONS No Known Immunizations SOCIAL HISTORY Never Assessed REASON FOR VISIT OB f/u-2 wk -- lucy stein PLAN OF CARE Activity Details Follow Up 2 Weeks Reason: VITAL SIGNS Height 62 in 2016-12-09 Weight 146.2 lbs 2016-12-09 BMI 26.74 kg/m2 2016-12-09 Blood pressure systolic 138 mmHg 2016-12-09 Blood pressure diastolic 88 mmHg 2016-12-09 MEDICATIONS Medication Instructions Dosage Frequency Start Date End Date Duration S tatus 27-1 MG Active Zyrtec Allergy Active RESULTS Name Result Date Reference Range UA OB DIP (IN HOUSE) 2016-12-09 Glucose neg Protein trace PROCEDURES Procedure Date Ordered Result Body Site URINE-NO MICRO Dec 09, 2016 INSTRUCTIONS MEDICATIONS ADMINISTERED No Known Medications MEDICAL (GENERAL) HISTORY Type Description Date Medical History denies Medical History due date 02/14/2017
--- OUTSIDE RECORDS SUMMARY | 2019-08-03 20:41 | XMS REPORT ---
Author Author Debra KENNEDY Organization [facility] Address [address] [place] [address] Care Team Providers Care Locomotive Boilermaker Name Role Phone LILY KENNEDY Unavailable PROBLEMS Unknown Problems ALLERGIES No Information ENCOUNTERS Encounter Location Date Diagnosis [facility] [address] [facility] [id number] [address] [place] [phone] May, [facility] [address] [place] [id number] [address] [place] [phone] May, [facility] [address] [place] [id number] [address] [place] [phone] Apr, [facility] [address] [place] [id number] [address] [place] [phone] Mar, care and examinat ion Z39.2 [facility] [address] [place] [id number] [address] [place] [phone] Mar, [facility] [address] [place] [id number] [address] [place] [phone] Jan, [facility] [address] [place] [id number] [address] [place] [phone] Jan, [facility] [address] [place] [id number] [address] [place] [phone] Jan, Third trimester Z3 4.93 ; 40 weeks gestation of Z3A.40 and Irregular contractions O62.2 [facility] [address] [facility] [id number] [address] [place] [phone] Jan, [facility] [address] [place] [id number] [address] [place] [phone] Jan, [facility] [address] [id number] [address] [place] [phone] Jan, Third trimester Z3 4.93 and 39 weeks gestation of Z3A.39 [facility] [address] [id number] [address] [place] [phone] Jan, [facility] [address] [id number] [address] [place] [phone] Jan, Third trimester Z3 4.93 and 38 weeks gestation of Z3A.38 [facility] [address] [id number] [address] [place] [phone] Dec, 37 weeks gestation of pregna ncy Z3A.37 and Third trimester Z34.93 [facility] [address] [id number] [address] [place] [phone] Dec, [facility] [address] [id number] [address] [place] [phone] Dec, 36 weeks gestation of pregna ncy Z3A.36 and Third trimester Z34.93 [facility] [address] [id number] [address] [place] [phone] Dec, [facility] [address] [id number] [address] [place] [phone] Dec, 35 weeks gestation of pregna ncy Z3A.35 and Third trimester Z34.93 [facility] [address] [id number] [address] [place] [phone] Nov, 33 weeks gestation of pregna ncy Z3A.33 and Third trimester Z34.93 [facility] [address] [id number] [address] [place] [phone] Nov, [facility] [address] [id number] [address] [place] [phone] Nov, [facility] [address] [id number] [address] [place] [phone] Nov, Visit for TB skin test Z11.1 ; 31 weeks gestation of Z3A.31 ; Encounter for immunization Z23 and Third trimester Z34.93 [facility] [address] [id number] [address] [place] [phone] 15 Oct, 2016 27 weeks gestation of pregna ncy Z3A.27 and Second trimester Z34.92 [facility] [address] [id number] [address] [place] [phone] Sep, Normal in second t rimester Z34.92 ; Abnormal ultrasound O28.3 and 23 weeks gestation of Z3A.23 [place] [address] [id number] [address] [place] [phone] Sep, [place] [address] [id number] [address] [place] [phone] Aug, [place] [address] [id number] [address] [place] [phone] Aug, Normal in second t rimester Z34.92 and 19 weeks gestation of Z3A.19 [place] [address] [id number] [address] [place] [phone] 07 Aug, 2016 Encounter for dental examina tion and cleaning without abnormal findings Z01.20 [facility] [address] [id number] [address] [place] [phone] Aug, [place] [address] [id number] [address] [place] [phone] Aug, Normal , first Z34. 00 [place] [address] [id number] [address] [place] [phone] Aug, [place] [address] [id number] [address] [place] [phone] Aug, Dental examination Z01.20 [facility] [address] [id number] [address] [place] [phone] Aug, [facility] [address] [id number] [address] [place] [phone] July, [facility] [address] [facility] [id number] [address] [place] [phone] July, Normal , first Z34. 00 and 10 weeks gestation of Z3A.10 [place] [address] [facility] [id number] [address] [place] [phone] July, [place] [address] [facility] [id number] [address] [place] [phone] July, Encounter for test Z32.00 IMMUNIZATIONS No Known Immunizations SOCIAL HISTORY Never Assessed REASON FOR VISIT PLAN OF CARE VITAL SIGNS MEDICATIONS Unknown Medications RESULTS No Results PROCEDURES No Known procedures INSTRUCTIONS MEDICATIONS ADMINISTERED No Known Medications MEDICAL (GENERAL) HISTORY Type Description Date Medical History denies Medical History due date 02/14/2017
--- OUTSIDE RECORDS SUMMARY | 2019-08-03 20:41 | XMS REPORT ---
Author Author Debra KENNEDY Organization [facility] Address [address] [place] [address] Care Team Providers Care Buffing Wheel Raker Name Role Phone LILY KENNEDY Unavailable PROBLEMS Unknown Problems ALLERGIES No Information ENCOUNTERS Encounter Location Date Diagnosis [facility] [address] [facility] [id number] [address] [place] [phone] Jun, [facility] [address] [facility] [id number] [address] [place] [phone] May, [facility] [address] [facility] [id number] [address] [place] [phone] May, [facility] [address] [facility] [id number] [address] [place] [phone] Apr, [facility] [address] [facility] [id number] [address] [place] [phone] Mar, care and examinat ion Z39.2 [facility] [address] [facility] [id number] [address] [place] [phone] Mar, [facility] [address] [facility] [id number] [address] [place] [phone] Jan, [facility] [address] [facility] [id number] [address] [place] [phone] Jan, [facility] [address] [place] [id number] [address] [place] [phone] Jan, Third trimester Z3 4.93 ; 40 weeks gestation of Z3A.40 and Irregular contractions O62.2 [facility] [address] [facility] [id number] [address] [place] [phone] Jan, [facility] [address] [id number] [address] [place] [phone] Jan, [facility] [address] [facility] [id number] [address] [place] [phone] Jan, Third trimester Z3 4.93 and 39 weeks gestation of Z3A.39 [facility] [address] [facility] [id number] [address] [place] [phone] Jan, [facility] [address] [facility] [id number] [address] [place] [phone] Jan, Third trimester Z3 4.93 and 38 weeks gestation of Z3A.38 [facility] [address] [id number] [address] [place] [phone] Dec, 37 weeks gestation of pregna ncy Z3A.37 and Third trimester Z34.93 [facility] [address] [facility] [id number] [address] [place] [phone] Dec, [facility] [address] [id number] [address] [place] [phone] Dec, 36 weeks gestation of pregna ncy Z3A.36 and Third trimester Z34.93 [facility] [address] [facility] [id number] [address] [place] [phone] Dec, [facility] [address] [facility] [id number] [address] [place] [phone] Dec, 35 weeks gestation of pregna ncy Z3A.35 and Third trimester Z34.93 [facility] [address] [id number] [address] [place] [phone] Nov, 33 weeks gestation of pregna ncy Z3A.33 and Third trimester Z34.93 [facility] [address] [id number] [address] [place] [phone] Nov, [facility] [address] [facility] [id number] [address] [place] [phone] Nov, [place] [address] [id number] [address] [place] [phone] 12 Nov, 2016 Visit for TB skin test Z11.1 ; 31 weeks gestation of Z3A.31 ; Encounter for immunization Z23 and Third trimester Z34.93 [facility] [address] [facility] [id number] [address] [place] [id number] 15 Oct, 2016 27 weeks gestation of pregna ncy Z3A.27 and Second trimester Z34.92 [place] [address] [facility] [id number] [address] [place] [phone] Sep, Normal in second t rimester Z34.92 ; Abnormal ultrasound O28.3 and 23 weeks gestation of Z3A.23 [place] [address] [facility] [id number] [address] [place] [phone] Sep, [address] [id number] [address] [place] [phone] Aug, [place] [address] [facility] [id number] [address] [place] [phone] Aug, Normal in second t rimester Z34.92 and 19 weeks gestation of Z3A.19 [place] [address] [facility] [id number] [address] [place] [phone] 07 Aug, 2016 Encounter for dental examina tion and cleaning without abnormal findings Z01.20 [place] [address] [facility] [id number] [address] [place] [phone] Aug, [address] [id number] [address] [place] [phone] Aug, Normal , first Z34. [address] [id number] [address] [place] [phone] Aug, Dental examination Z01.20 [place] [address] [facility] [id number] [address] [place] [phone] Aug, [place] [address] [facility] [id number] [address] [place] [phone] Aug, [facility] [address] [facility] [id number] [address] [place] [id number] July, [facility] [address] [facility] [id number] [address] [place] [phone] July, Normal , first Z34. 00 and 10 weeks gestation of Z3A.10 [facility] [address] [facility] [id number] [address] [place] [phone] July, [facility] [address] [facility] [id number] [address] [place] [phone] July, Encounter for test Z32.00 IMMUNIZATIONS No Known Immunizations SOCIAL HISTORY Never Assessed REASON FOR VISIT OB f/u-2 wk -- lucy stein PLAN OF CARE Activity Details Follow Up 1 Week Reason: VITAL SIGNS Height 62 in 2016-12-22 Weight 149.0 lbs 2016-12-22 BMI 27.252 kg/m2 2016-12-22 Blood pressure systolic 114 mmHg 2016-12-22 Blood pressure diastolic 70 mmHg 2016-12-22 MEDICATIONS Medication Instructions Dosage Frequency Start Date End Date Duration S tatus Zyrtec Allergy Active 27-1 MG Active RESULTS Name Result Date Reference Range UA OB DIP (IN HOUSE) 2016-12-22 Glucose neg Protein trace PROCEDURES Procedure Date Ordered Result Body Site URINE-NO MICRO Dec 22, 2016 INSTRUCTIONS MEDICATIONS ADMINISTERED No Known Medications MEDICAL (GENERAL) HISTORY Type Description Date Medical History denies Medical History due date 02/14/2017
--- OUTSIDE RECORDS SUMMARY | 2019-08-03 20:41 | XMS REPORT ---
Author Author Debra KENNEDY Organization [facility] Address [address] [place] [address] Care Team Providers Care Closed Circuit Screen Watcher Name Role Phone LILY KENNEDY Unavailable PROBLEMS Unknown Problems ALLERGIES Substance Reaction Event Type Date Status pollen itching Non Drug Allergy Dec, Active ENCOUNTERS Encounter Location Date Diagnosis [facility] [address] [id number] [address] [place] [phone] Jun, [facility] [address] [id number] [address] [place] [phone] May, [facility] [address] [id number] [address] [place] [phone] May, [facility] [address] [id number] [address] [place] [phone] Apr, [facility] [address] [id number] [address] [place] [phone] Mar, care and examinat ion Z39.2 [facility] [address] [id number] [address] [place] [phone] Mar, [facility] [address] [id number] [address] [place] [phone] Jan, [facility] [address] [id number] [address] [place] [phone] Jan, [facility] [address] [id number] [address] [place] [phone] Jan, Third trimester Z3 4.93 ; 40 weeks gestation of Z3A.40 and Irregular contractions O62.2 [facility] [address] [id number] [address] [place] [phone] Jan, [facility] [address] [id number] [address] [place] [phone] Jan, [facility] [address] [id number] [address] [place] [phone] Jan, Third trimester Z3 4.93 and 39 weeks gestation of Z3A.39 [facility] [address] [id number] [address] [place] [phone] Jan, [facility] [address] [id number] [address] [place] [phone] Jan, Third trimester Z3 4.93 and 38 weeks gestation of Z3A.38 [facility] [address] [id number] [address] [place] [phone] Dec, 37 weeks gestation of pregna ncy Z3A.37 and Third trimester Z34.93 [facility] [address] [id number] [address] [place] [phone] Dec, [facility] [address] [id number] [address] [place] [phone] Dec, 36 weeks gestation of pregna ncy Z3A.36 and Third trimester Z34.93 [facility] [address] [id number] [address] [place] [phone] Dec, [facility] [address] [id number] [address] [place] [phone] Dec, 35 weeks gestation of pregna ncy Z3A.35 and Third trimester Z34.93 [facility] [address] [id number] [address] [place] [phone] Nov, 33 weeks gestation of pregna ncy Z3A.33 and Third trimester Z34.93 [facility] [address] [id number] [address] [place] [phone] Nov, [facility] [address] [id number] [address] [place] [phone] Nov, [facility] [address] [id number] [address] [place] [phone] 12 Nov, 2016 Visit for TB skin test Z11.1 ; 31 weeks gestation of Z3A.31 ; Encounter for immunization Z23 and Third trimester Z34.93 [facility] [address] [id number] [address] [place] [phone] 15 Oct, 2016 27 weeks gestation of pregna ncy Z3A.27 and Second trimester Z34.92 [facility] [address] [id number] [address] [place] [phone] 18 Sep, 2016 Normal in second t rimester Z34.92 ; Abnormal ultrasound O28.3 and 23 weeks gestation of Z3A.23 [place] [address] [id number] [address] [place] [phone] 18 Sep, 2016 [place] [address] [id number] [address] [place] [phone] Aug, [place] [address] [id number] [address] [place] [phone] Aug, Normal in second t rimester Z34.92 and 19 weeks gestation of Z3A.19 [place] [address] [id number] [address] [place] [phone] 07 Aug, 2016 Encounter for dental examina tion and cleaning without abnormal findings Z01.20 [place] [address] [id number] [address] [place] [phone] Aug, [place] [address] [id number] [address] [place] [phone] Aug, Normal , first Z34. 00 [place] [address] [id number] [address] [place] [phone] Aug, Dental examination Z01.20 [facility] [address] [id number] [address] [place] [phone] Aug, [place] [address] [facility] [id number] [address] [place] [phone] Aug, [facility] [address] [facility] [id number] [address] [place] [phone] July, [facility] [address] [facility] [id number] [address] [place] [phone] July, Normal , first Z34. 00 and 10 weeks gestation of Z3A.10 [facility] [address] [facility] [id number] [address] [place] [phone] July, [facility] [address] [facility] [id number] [address] [place] [phone] July, Encounter for test Z32.00 IMMUNIZATIONS No Known Immunizations SOCIAL HISTORY Never Assessed REASON FOR VISIT OB f/u-1 wk---DBennettRN PLAN OF CARE Activity Details Follow Up 1 Week Reason: VITAL SIGNS Height 62 in 2017-01-05 Weight 151 lbs 2017-01-05 Temperature 97.9 degrees Fahrenheit 2017-01-05 Heart Rate 90 bpm 2017-01-05 Respiratory Rate 20 2017-01-05 BMI 27.618 kg/m2 2017-01-05 Blood pressure systolic 128 mmHg 2017-01-05 Blood pressure diastolic 88 mmHg 2017-01-05 MEDICATIONS Medication Instructions Dosage Frequency Start Date End Date Duration S tatus 27-1 MG Active Zyrtec Allergy Active RESULTS Name Result Date Reference Range UA OB DIP (IN HOUSE) 2017-01-05 Glucose neg Protein trace PROCEDURES Procedure Date Ordered Result Body Site URINE-NO MICRO Jan 05, 2017 INSTRUCTIONS MEDICATIONS ADMINISTERED No Known Medications MEDICAL (GENERAL) HISTORY Type Description Date Medical History denies Medical History due date 02/14/2017
--- OUTSIDE RECORDS SUMMARY | 2019-08-03 20:41 | XMS REPORT ---
Author Author Debra KENNEDY Organization [facility] Address [address] [place] [address] Care Team Providers Care Workplace Relations Adviser Name Role Phone LILY KENNEDY Unavailable PROBLEMS Unknown Problems ALLERGIES No Information ENCOUNTERS Encounter Location Date Diagnosis [facility] [address] [facility] [id number] [address] [place] [phone] Jun, [facility] [address] [facility] [id number] [address] [place] [phone] May, [facility] [address] [facility] [id number] [address] [place] [phone] May, [facility] [address] [facility] [id number] [address] [place] [phone] Apr, [facility] [address] [facility] [id number] [address] [place] [phone] Mar, care and examinat ion Z39.2 [facility] [address] [facility] [id number] [address] [place] [phone] Mar, [facility] [address] [facility] [id number] [address] [place] [phone] Jan, [facility] [address] [facility] [id number] [address] [place] [phone] Jan, [facility] [address] [id number] [address] [place] [phone] Jan, Third trimester Z3 4.93 ; 40 weeks gestation of Z3A.40 and Irregular contractions O62.2 [facility] [address] [facility] [id number] [address] [place] [phone] Jan, [facility] [address] [id number] [address] [place] [phone] Jan, [facility] [address] [facility] [id number] [address] [place] [phone] Jan, Third trimester Z3 4.93 and 39 weeks gestation of Z3A.39 [facility] [address] [facility] [id number] [address] [place] [phone] Jan, [facility] [address] [facility] [id number] [address] [place] [phone] Jan, Third trimester Z3 4.93 and 38 weeks gestation of Z3A.38 [facility] [address] [id number] [address] [place] [phone] Dec, 37 weeks gestation of pregna ncy Z3A.37 and Third trimester Z34.93 [facility] [address] [facility] [id number] [address] [place] [phone] Dec, [facility] [address] [id number] [address] [place] [phone] Dec, 36 weeks gestation of pregna ncy Z3A.36 and Third trimester Z34.93 [facility] [address] [facility] [id number] [address] [place] [phone] Dec, [facility] [address] [facility] [id number] [address] [place] [phone] Dec, 35 weeks gestation of pregna ncy Z3A.35 and Third trimester Z34.93 [facility] [address] [id number] [address] [place] [phone] Nov, 33 weeks gestation of pregna ncy Z3A.33 and Third trimester Z34.93 [facility] [address] [id number] [address] [place] [phone] Nov, [facility] [address] [facility] [id number] [address] [place] [phone] Nov, [facility] [address] [id number] [address] [place] [phone] 12 Nov, 2016 Visit for TB skin test Z11.1 ; 31 weeks gestation of Z3A.31 ; Encounter for immunization Z23 and Third trimester Z34.93 [facility] [address] [id number] [address] [place] [phone] 15 Oct, 2016 27 weeks gestation of pregna ncy Z3A.27 and Second trimester Z34.92 [place] [address] [id number] [address] [place] [phone] Sep, Normal in second t rimester Z34.92 ; Abnormal ultrasound O28.3 and 23 weeks gestation of Z3A.23 [place] [address] [id number] [address] [place] [phone] Sep, [place] [address] [id number] [address] [place] [phone] Aug, [facility] and 19 weeks gestation of Z3A.19 [place] [address] [id number] [address] [place] [phone] Aug, [place] [address] [facility] [id number] [address] [place] [phone] Aug, Encounter for dental examina tion and cleaning without abnormal findings Z01.20 [place] [address] [id number] [address] [place] [phone] Aug, [place] [address] [id number] [address] [place] [phone] Aug, Normal , first Z34. 00 [place] [address] [id number] [address] [place] [phone] Aug, Dental examination Z01.20 [place] [address] [id number] [address] [place] [phone] Aug, [place] [address] [id number] [address] [place] [phone] Aug, [facility] [address] [facility] [id number] [address] [place] [phone] July, [facility] [address] [facility] [id number] [address] [place] [phone] July, Normal , first Z34. 00 and 10 weeks gestation of Z3A.10 [place] [address] [facility] [id number] [address] [place] [phone] July, [place] [address] [facility] [id number] [address] [place] [phone] July, Encounter for test Z32.00 IMMUNIZATIONS No Known Immunizations SOCIAL HISTORY Never Assessed REASON FOR VISIT OB f/u-4 wk-BLAZE Bonilla PLAN OF CARE Activity Details Follow Up 4 Weeks Reason: VITAL SIGNS Height 62 in 2016-10-26 Weight 141 lbs 2016-10-26 Temperature 98.1 degrees Fahrenheit 2016-10-26 Heart Rate 94 bpm 2016-10-26 Respiratory Rate 18 2016-10-26 BMI 25.789 kg/m2 2016-10-26 Blood pressure systolic 120 mmHg 2016-10-26 Blood pressure diastolic 70 mmHg 2016-10-26 MEDICATIONS Unknown Medications RESULTS Name Result Date Reference Range CBC 2016-10-26 WBC 8.5 3.4-10.8 RBC 3.79 3.77-5.28 Hemoglobin 11.6 11.1-15.9 Hematocrit 33.5 34.0-46.6 MCV 88 79-97 MCH 30.6 26.6-33.0 MCHC 34.6 31.5-35.7 RDW 12.6 12.3-15.4 Platelets 250 150-379 Neutrophils 70 Lymphs 20 Monocytes 9 Eos 1 Basos 0 Immature Cells Neutrophils (Absolute) 5.9 1.4-7.0 Lymphs (Absolute) 1.7 0.7-3.1 Monocytes(Absolute) 0.7 0.1-0.9 Eos (Absolute) 0.1 0.0-0.4 Baso (Absolute) 0.0 0.0-0.2 Immature Granulocytes 0 Immature Grans (Abs) 0.0 0.0-0.1 NRBC Hematology Comments: UA OB DIP (IN HOUSE) 2016-10-26 Glucose neg Protein neg PROCEDURES Procedure Date Ordered Result Body Site URINE-NO MICRO Oct 26, 2016 COMPLETE CBC W/AUTO DIFF WBC Oct 26, 2016 VENIPUNCT, ROUTINE* Oct 26, 2016 GLUCOSE TEST Oct 26, 2016 INSTRUCTIONS MEDICATIONS ADMINISTERED No Known Medications MEDICAL (GENERAL) HISTORY Type Description Date Medical History denies Medical History due date 02/14/2017
--- OUTSIDE RECORDS SUMMARY | 2019-08-03 20:41 | XMS REPORT | Continuity of Care Document ---
Author Organization Unknown Address Unknown Phone Unavailable Allergies Active Description Code Type Severity Reaction Onset Reported/Identified Relationship to Patient Clinical Status Yes No Known Drug Allergies [id number] Drug Allergy Unknown N/A 01/26/2017 Medications There is no data. Problems Date Dx Coded Attending Type Code Diagnosis Diagnosed By 08/18/2016 LILY KENNEDY MD R Ot Z34.0 2 ENCNTR FOR SUPRVSN OF NORMAL FIRST PREG, 08/18/2016 LILY KENNEDY MD R Ot Z3A.1 7 17 WEEKS GESTATION OF 09/23/2016 LILY KENNEDY MD Ot Z34.0 2 ENCNTR FOR SUPRVSN OF NORMAL FIRST PREG, 09/23/2016 LILY KENNEDY MD R Ot Z3A.1 7 17 WEEKS GESTATION OF 09/23/2016 LILY KENNEDY MD R Ot Z34.0 2 ENCNTR FOR SUPRVSN OF NORMAL FIRST PREG, 09/23/2016 LILY KENNEDY MD R Ot Z3A.1 7 17 WEEKS GESTATION OF 09/23/2016 LILY KENNEDY MD R Ot Z36 ENCOUNTER FOR SCREENING OF MOT 09/23/2016 LILY KENNEDY MD Ot Z3A.2 0 20 WEEKS GESTATION OF 09/29/2016 LILY KENNEDY MD R Ot Z36 ENCOUNTER FOR SCREENING OF MOT 09/29/2016 LILY KENNEDY MD R Ot Z3A.2 0 20 WEEKS GESTATION OF 10/12/2016 LILY KENNEDY MD R Ot Z34.0 2 ENCNTR FOR SUPRVSN OF NORMAL FIRST PREG, 10/12/2016 LILY KENNEDY MD R Ot Z3A.1 7 17 WEEKS GESTATION OF 10/12/2016 LILY KENNEDY MD R Ot Z36 ENCOUNTER FOR SCREENING OF MOT 10/12/2016 LILY KENNEDY MD R Ot Z3A.2 0 20 WEEKS GESTATION OF 10/13/2016 LILY KENNEDY MD R Ot Z36 ENCOUNTER FOR SCREENING OF MOT 10/13/2016 LILY KENNEDY MD Ot Z3A.0 0 WEEKS OF GESTATION OF NOT SPEC 10/28/2016 LILY KENNEDY MD Ot Z36 ENCOUNTER FOR SCREENING OF MOT 10/28/2016 LILY KENNEDY MD Ot Z3A.2 0 20 WEEKS GESTATION OF 11/08/2016 LILY KENNEDY MD Ot Z36 ENCOUNTER FOR SCREENING OF MOT 11/08/2016 LILY KENNEDY MD Ot Z3A.2 0 20 WEEKS GESTATION OF 11/09/2016 LILY KENNEDY MD Ot Z36 ENCOUNTER FOR SCREENING OF MOT 11/09/2016 LILY KENNEDY MD Ot Z3A.0 0 WEEKS OF GESTATION OF NOT SPEC 01/26/2017 LILY KENNEDY MD Ot Z34.0 2 ENCNTR FOR SUPRVSN OF NORMAL FIRST PREG, 01/26/2017 LILY KENNEDY MD Ot Z3A.1 7 17 WEEKS GESTATION OF 01/26/2017 LILY KENNEDY MD Ot Z36 ENCOUNTER FOR SCREENING OF MOT 01/26/2017 LILY KENNEDY MD Ot Z3A.2 0 20 WEEKS GESTATION OF 01/26/2017 LILY KENNEDY MD Ot Z36 ENCOUNTER FOR SCREENING OF MOT 01/26/2017 LILY KENNEDY MD Ot Z3A.0 0 WEEKS OF GESTATION OF NOT SPEC 01/28/2017 LILY KENNEDY MD Ot D64.9 ANEMIA, UNSPECIFIED 01/28/2017 LILY KENNEDY MD Ot O69.81X0 LABOR AND DEL COMP BY CORD AROUND NECK, 01/28/2017 LILY KENNEDY MD Ot O70.1 SECOND DEGREE PERINEAL LACERATION DURING 01/28/2017 LILY KENNEDY MD Ot O90.8 1 ANEMIA OF THE PUERPERIUM 01/28/2017 LILY KENNEDY MD Ot Z37.0 SINGLE LIVE 01/28/2017 LILY KENNEDY MD Ot Z3A.4 0 40 WEEKS GESTATION OF 02/01/2017 LILY KENNEDY MD Ot Z34.0 2 ENCNTR FOR SUPRVSN OF NORMAL FIRST PREG, 02/01/2017 LILY KENNEDY MD Ot Z3A.1 7 17 WEEKS GESTATION OF Procedures Code Description Performed By Per formed On [id number] EX TRACTION OF PRODUCTS OF [place], [place] 01/26/2017 Results Test Result Range Genital Culture, Routine - 08/04/16 16:5 2 Genital Culture, Routine Note CBC With Differential/Platelet - 7 16:52 WBC 8.2 x10E3/uL 3.4-10.8 RBC 4.60 x10E6/uL 3.77-5.28 Hemoglobin 13.7 g/dL 11.1-15.9 Hematocrit 41.3 % 34.0-46.6 MCV 90 fL 79-97 MCH 29.8 pg 26.6-33.0 MCHC 33.2 g/dL 31.5-35.7 RDW 14.9 % 12.3-15.4 Platelets 233 x10E3/uL 150-379 Neutrophils 64 % Lymphs 25 % Monocytes 8 % Eos 3 % Basos 0 % Neutrophils (Absolute) 5.3 x10E3/uL 1.4- 7.0 Lymphs (Absolute) 2.0 x10E3/uL 0.7-3.1 Monocytes(Absolute) 0.7 x10E3/uL 0.1-0.9 Eos (Absolute) 0.2 x10E3/uL 0.0-0.4 Baso (Absolute) 0.0 x10E3/uL 0.0-0.2 Immature Granulocytes 0 % Immature Grans (Abs) 0.0 x10E3/uL 0.0-0. 1 ABO Grouping and Rho(D) Typing - 7 16:52 ABO Grouping O Rh Factor Positive TSH - 08/04/16 16:52 TSH 1.970 uIU/mL 0.450-4.500 Rubella Antibodies, IgG - 08/04/16 16:52 Rubella Antibodies, IgG 3.48 index Immun e >0.99 Antibody Screen - 08/04/16 16:52 Antibody Screen Negative Negative Urine Culture, Routine - 08/04/16 16:52 Urine Culture, Routine Note CBC With Differential/Platelet - 7 15:32 WBC 8.5 x10E3/uL 3.4-10.8 RBC 3.79 x10E6/uL 3.77-5.28 Hemoglobin 11.6 g/dL 11.1-15.9 Hematocrit 33.5 % 34.0-46.6 MCV 88 fL 79-97 MCH 30.6 pg 26.6-33.0 MCHC 34.6 g/dL 31.5-35.7 RDW 12.6 % 12.3-15.4 Platelets 250 x10E3/uL 150-379 Neutrophils 70 % Lymphs 20 % Monocytes 9 % Eos 1 % Basos 0 % Neutrophils (Absolute) 5.9 x10E3/uL 1.4- 7.0 Lymphs (Absolute) 1.7 x10E3/uL 0.7-3.1 Monocytes(Absolute) 0.7 x10E3/uL 0.1-0.9 Eos (Absolute) 0.1 x10E3/uL 0.0-0.4 Baso (Absolute) 0.0 x10E3/uL 0.0-0.2 Immature Granulocytes 0 % Immature Grans (Abs) 0.0 x10E3/uL 0.0-0. 1 Gest. Diabetes 1-Hr Screen - 10/26/16 15 :32 Gestational Diabetes Screen 119 mg/dL 65 -139 CULTURE, GBS - 12/28/16 13:31 Strep Gp B Culture Negative Negative Strep Gp B Culture - 12/28/16 13:31 Strep Gp B Culture Negative Negative Complete urinalysis with reflex to cultu re - 01/26/17 09:00 Urine color determination YELLOW NRG Urine clarity determination SLIGHTLY CLOUDY NRG Urine pH measurement by test strip 6 5-9 Specific gravity of urine by test strip 1.025 1.016-1.022 Urine protein assay by test strip, semi-quantitative 2+ NEGATIVE Urine glucose detection by automated test strip NE GATIVE NEGATIVE Erythrocytes detection in urine sediment by light micr oscopy 5+ NEGATIVE Urine ketones detection by automated test strip 4+ NEGATIVE Urine nitrite detection by test strip POSITIVE NEGATIVE Urine total bilirubin detection by test strip 2+ NEGATIVE Urine urobilinogen measurement by automated test strip (mass/volume) 8 mg/dL NORMAL Urine leukocyte esterase detection by dipstick 3+ NEGATIVE Automated urine sediment erythrocyte cou nt by microscopy (number/high power field) NONE NRG Automated urine sediment leukocyte count by microscopy (number/high power field) [HPF] NRG Bacteria detection in urine sediment by light microsco py TRACE NRG Squamous epithelial cells detection in u rine sediment by light microscopy 10-25 NRG Crystals detection in urine sediment by light microsco py NONE NRG Casts detection in urine sediment by light microscopy NONE NRG Mucus detection in urine sediment by light microscopy NEGATIVE NRG Complete urinalysis with reflex to culture YES NRG Bacterial urine culture - 01/26/17 09:00 URINE CULTURE RESULTS <10,000/ML NRG Complete blood count (CBC) with automate d white blood cell (WBC) differential - 01/26/17 09:21 Blood leukocytes automated count (number/volume) 11.6 10*3/uL 4.3-11.0 Blood erythrocytes automated count (number/volume) 3.99 10*6/uL 4.35-5.85 Venous blood hemoglobin measurement (mass/volume) 10.5 g/dL 11.5-16.0 Blood hematocrit (volume fraction) 32 % 35-52 Automated erythrocyte mean corpuscular volume 80 [ foz_us] 80-99 Automated erythrocyte mean corpuscular h emoglobin (mass per erythrocyte) 26 pg 25-34 Automated erythrocyte mean corpuscular h emoglobin concentration measurement (mass/volume) 33 g/dL 32-36 Automated erythrocyte distribution width ratio 14. 4 % 10.0- 14.5 Automated blood platelet count (count/volume) 205 10*3/uL 130-400 Automated blood platelet mean volume measurement 10.5 [foz_us] 7.4-10.4 Automated blood neutrophils/100 leukocytes 80 % 42-75 Automated blood lymphocytes/100 leukocytes 12 % 12-44 Blood monocytes/100 leukocytes 8 % 0-12 Automated blood eosinophils/100 leukocytes 0 % 0-10 Automated blood basophils/100 leukocytes 0 % 0-10 Blood neutrophils automated count (number/volume) 9.2 10*3 1.8-7.8 Blood lymphocytes automated count (number/volume) 1.4 10*3 1.0-4.0 Blood monocytes automated count (number/volume) 0. 9 10*3 0.0-1.0 Automated eosinophil count 0.0 10*3/uL 0 .0-0.3 Automated blood basophil count (count/volume) 0.0 10*3/uL 0.0-0.1 Blood type T Indirect antibody screen pa carissa - 01/26/17 09:21 ABO+Rh group OP NRG Transfusion band number [id number] NRG Blood group antibody screen NEGATIVE NR G Complete blood count (CBC) with automate d white blood cell (WBC) differential - 01/27/17 05:25 Blood leukocytes automated count (number/volume) 10.8 10*3/uL 4.3-11.0 Blood erythrocytes automated count (number/volume) 2.93 10*6/uL 4.35-5.85 Venous blood hemoglobin measurement (mass/volume) 7.7 g/dL 11.5-16.0 Blood hematocrit (volume fraction) 24 % 35-52 Automated erythrocyte mean corpuscular volume 81 [ foz_us] 80-99 Automated erythrocyte mean corpuscular h emoglobin (mass per erythrocyte) 26 pg 25-34 Automated erythrocyte mean corpuscular h emoglobin concentration measurement (mass/volume) 32 g/dL 32-36 Automated erythrocyte distribution width ratio 14. 4 % 10.0- 14.5 Automated blood platelet count (count/volume) 209 10*3/uL 130-400 Automated blood platelet mean volume measurement 11.2 [foz_us] 7.4-10.4 Automated blood neutrophils/100 leukocytes 71 % 42-75 Automated blood lymphocytes/100 leukocytes 16 % 12-44 Blood monocytes/100 leukocytes 12 % 0-12 Automated blood eosinophils/100 leukocytes 0 % 0-10 Automated blood basophils/100 leukocytes 0 % 0-10 Blood neutrophils automated count (number/volume) 7.7 10*3 1.8-7.8 Blood lymphocytes automated count (number/volume) 1.8 10*3 1.0-4.0 Blood monocytes automated count (number/volume) 1. 3 10*3 0.0-1.0 Automated eosinophil count 0.0 10*3/uL 0 .0-0.3 Automated blood basophil count (count/volume) 0.0 10*3/uL 0.0-0.1 SUREPATH PAP RFX HPV mRNA E6/E7 - 00:00 CLINICAL INFORMATION: NRG LMP: NRG PREV. PAP: NRG PREV. BX: NRG SOURCE: Cervix NRG STATEMENT OF ADEQUACY: NRG INTERPRETATION/RESULT: NRG PROCESSING INSPECTOR: NRG GENERAL CATEGORIZATION: NRG COMMENT: NRG PATHOLOGIST: NRG COMMENT NRG CULTURE, GENITAL - 01/23/19 15:34 CULTURE, GENITAL SEE NOTE NRG SYPHILIS (RPR W/ REFLEX CONFIRMATION) - 05/15/19 12:48 RPR (DX) W/REFL TITER AND CONFIRMATORY TESTING NON-REACTIVE NON-REACTIVE GLUCOSE SUREKHA 3 HOUR - 05/21/19 13:37 TIME 1 1030AM NRG SPECIMEN 1 78 mg/dL 65-99 TIME 2 1130AM NRG SPECIMEN 2 138 mg/dL NRG TIME 3 1230PM NRG SPECIMEN 3 131 mg/dL NRG TIME 4 130PM NRG SPECIMEN 4 112 mg/dL NRG COMMENT NRG CULTURE, URINE - 06/28/19 13:54 CULTURE, URINE, ROUTINE SEE NOTE NRG Complete blood count (CBC) with automate d white blood cell (WBC) differential - 08/02/19 12:42 Blood leukocytes automated count (number/volume) 7.2 10*3/uL 4.3-11.0 Blood erythrocytes automated count (number/volume) 3.85 10*6/uL 4.35-5.85 Venous blood hemoglobin measurement (mass/volume) 8.4 g/dL 11.5-16.0 Blood hematocrit (volume fraction) 27 % 35-52 Automated erythrocyte mean corpuscular volume 70 [ foz_us] 80-99 Automated erythrocyte mean corpuscular h emoglobin (mass per erythrocyte) 22 pg 25-34 Automated erythrocyte mean corpuscular h emoglobin concentration measurement (mass/volume) 31 g/dL 32-36 Automated erythrocyte distribution width ratio 16. 5 % 10.0- 14.5 Automated blood platelet count (count/volume) 249 10*3/uL 130-400 Automated blood platelet mean volume measurement 10.1 [foz_us] 7.4-10.4 Automated blood neutrophils/100 leukocytes 62 % 42-75 Automated blood lymphocytes/100 leukocytes 26 % 12-44 Blood monocytes/100 leukocytes 10 % 0-12 Automated blood eosinophils/100 leukocytes 2 % 0-10 Automated blood basophils/100 leukocytes 0 % 0-10 Blood neutrophils automated count (number/volume) 4.5 10*3 1.8-7.8 Blood lymphocytes automated count (number/volume) 1.9 10*3 1.0-4.0 Blood monocytes automated count (number/volume) 0. 7 10*3 0.0-1.0 Automated eosinophil count 0.1 10*3/uL 0 .0-0.3 Automated blood basophil count (count/volume) 0.0 10*3/uL 0.0-0.1 Comprehensive metabolic panel - 08/02/19 12:42 Serum or plasma sodium measurement (moles/volume) 137 mmol/L 135-145 Serum or plasma potassium measurement (moles/volume) 4.2 mmol/L 3.6-5.0 Serum or plasma chloride measurement (moles/volume) 108 mmol/L 98-107 Carbon dioxide 20 mmol/L 21-32 Serum or plasma anion gap determination (moles/volume) 9 mmol/L 5-14 Serum or plasma urea nitrogen measurement (mass/volume ) 6 mg/dL 7-18 Serum or plasma creatinine measurement (mass/volume) 0.69 mg/dL 0.60-1.30 Serum or plasma urea nitrogen/creatinine mass ratio 9 NRG Serum or plasma creatinine measurement w ith calculation of estimated glomerular filtration rate > NRG Serum or plasma glucose measurement (mass/volume) 75 mg/dL 70-105 Serum or plasma calcium measurement (mass/volume) 8.5 mg/dL 8.5-10.1 Serum or plasma total bilirubin measurement (mass/volu me) 1.2 mg/dL 0.1-1.0 Serum or plasma alkaline phosphatase yuliya surement (enzymatic activity/volume) 322 U/L 40-136 Serum or plasma aspartate aminotransfera se measurement (enzymatic activity/volume) 18 U/L 5-34 Serum or plasma alanine aminotransferase measurement (enzymatic activity/volume) 10 U/L 0-55 Serum or plasma protein measurement (mass/volume) 6.2 g/dL 6.4-8.2 Serum or plasma albumin measurement (mass/volume) 3.1 g/dL 3.2-4.5 CALCIUM CORRECTED 9.2 mg/dL 8.5-10.1 Serum or plasma uric acid measurement (m ass/volume) - 08/02/19 12:42 Serum or plasma uric acid measurement (mass/volume) 4.0 mg/dL 2.6-7.2 Serum ragweed IgE antibody assay - 08/01 12:42 Serum ragweed IgE antibody assay 183 U/L 125-220 Urine protein/creatinine mass ratio - 12:49 Urine protein measurement (mass/volume) 20 mg/dL 6-12 Urine creatinine measurement (mass/volume) 86 mg/d L 30-125 Urine protein/creatinine mass ratio 0.23 NRG Complete blood count (CBC) with automate d white blood cell (WBC) differential - 08/03/19 10:45 Blood leukocytes automated count (number/volume) 8.3 10*3/uL 4.3-11.0 Blood erythrocytes automated count (number/volume) 3.91 10*6/uL 4.35-5.85 Venous blood hemoglobin measurement (mass/volume) 8.4 g/dL 11.5-16.0 Blood hematocrit (volume fraction) 27 % 35-52 Automated erythrocyte mean corpuscular volume 70 [ foz_us] 80-99 Automated erythrocyte mean corpuscular h emoglobin (mass per erythrocyte) 21 pg 25-34 Automated erythrocyte mean corpuscular h emoglobin concentration measurement (mass/volume) 31 g/dL 32-36 Automated erythrocyte distribution width ratio 16. 7 % 10.0- 14.5 Automated blood platelet count (count/volume) 247 10*3/uL 130-400 Automated blood platelet mean volume measurement 11.0 [foz_us] 7.4-10.4 Automated blood neutrophils/100 leukocytes 69 % 42-75 Automated blood lymphocytes/100 leukocytes 21 % 12-44 Blood monocytes/100 leukocytes 8 % 0-12 Automated blood eosinophils/100 leukocytes 1 % 0-10 Automated blood basophils/100 leukocytes 0 % 0-10 Blood neutrophils automated count (number/volume) 5.8 10*3 1.8-7.8 Blood lymphocytes automated count (number/volume) 1.8 10*3 1.0-4.0 Blood monocytes automated count (number/volume) 0. 7 10*3 0.0-1.0 Automated eosinophil count 0.1 10*3/uL 0 .0-0.3 Automated blood basophil count (count/volume) 0.0 10*3/uL 0.0-0.1 Blood type T Indirect antibody screen pa carissa - 08/03/19 10:45 WRISTBAND NUMBER [id number] NRG ABO+Rh group OP NRG Blood group antibody screen NEGATIVE NR G Encounters ACCT No. Visit Date/Time Discharge Status Pt. Type Provider Facility Loc./Unit Complaint [id number] 07/19/2019 11:20:00 07/19/2019 23:59: 59 [facility] Outpatient LILY KENNEDY [facility] [id number] 06/28/2019 11:20:00 Document Registration [id number] 05/21/2019 11:00:00 Document Registration [id number] 05/15/2019 11:40:00 Document Registration [id number] 01/23/2019 14:20:00 Document Registration [id number] 12/28/2016 13:20:00 Document Registration [id number] 10/27/2016 07:06:00 Document Registration [id number] 08/07/2016 16:07:00 Document Registration [id number] 08/05/2016 23:07:00 Document Registration [id number] 01/26/2017 07:55:00 017 17:00:00 DIS Inpatient LILY KENNEDY MD [facility] LDRP CONTRACTIONS/LABOR [id number] 01/26/2017 20:00:00 017 23:59:59 CLS Preadmit LILY KENNEDY MD INDUCTION [id number] 10/12/2016 13:42:00 017 23:59:59 CLS Outpatient LILY KENNEDY MD [facility] RAD ABNORMAL SURVEY O 28.3 [id number] 09/09/2016 10:51:00 017 23:59:59 CLS Outpatient LILY KENNEDY MD [facility] RAD NORMAL IN 2ND TRIMESTER Z34.92 [id number] 08/17/2016 15:59:00 017 23:59:59 CLS Outpatient LILY KENNEDY MD [facility] RAD Z34.00 NORMAL ,DATING [id number] 08/03/2019 10:02:[address] Outpatient LILY KENNEDY MD [facility] LDRP LABOR [id number] 08/02/2019 12:20:[address] Outpatient LILY KENNEDY MD [facility] LAB ELEVATED BLOOD PRESSURE [id number] 12/31/2016 09:08:00 Document Registration
--- OUTSIDE RECORDS SUMMARY | 2019-08-03 20:41 | XMS REPORT ---
Author Author Debra KENNEDY Organization [facility] Address [address] [place] [address] Care Team Providers Care Tax Services Specialist Name Role Phone LILY KENNEDY Unavailable PROBLEMS Unknown Problems ALLERGIES No Information ENCOUNTERS Encounter Location Date Diagnosis [facility] [address] [facility] [id number] [address] [place] [phone] Jun, [facility] [address] [facility] [id number] [address] [place] [phone] May, [facility] [address] [facility] [id number] [address] [place] [phone] May, [facility] [address] [facility] [id number] [address] [place] [phone] Apr, [facility] [address] [facility] [id number] [address] [place] [phone] Mar, care and examinat ion Z39.2 [facility] [address] [facility] [id number] [address] [place] [phone] Mar, [facility] [address] [facility] [id number] [address] [place] [phone] Jan, [facility] [address] [facility] [id number] [address] [place] [phone] Jan, [facility] [address] [place] [id number] [address] [place] [phone] Jan, Third trimester Z3 4.93 ; 40 weeks gestation of Z3A.40 and Irregular contractions O62.2 [facility] [address] [facility] [id number] [address] [place] [phone] Jan, [facility] [address] [id number] [address] [place] [phone] Jan, [facility] [address] [facility] [id number] [address] [place] [phone] Jan, Third trimester Z3 4.93 and 39 weeks gestation of Z3A.39 [facility] [address] [facility] [id number] [address] [place] [phone] Jan, [facility] [address] [facility] [id number] [address] [place] [phone] Jan, Third trimester Z3 4.93 and 38 weeks gestation of Z3A.38 [facility] [address] [id number] [address] [place] [phone] Dec, 37 weeks gestation of pregna ncy Z3A.37 and Third trimester Z34.93 [facility] [address] [facility] [id number] [address] [place] [phone] Dec, [facility] [address] [id number] [address] [place] [phone] Dec, 36 weeks gestation of pregna ncy Z3A.36 and Third trimester Z34.93 [facility] [address] [facility] [id number] [address] [place] [phone] Dec, [facility] [address] [facility] [id number] [address] [place] [phone] Dec, 35 weeks gestation of pregna ncy Z3A.35 and Third trimester Z34.93 [facility] [address] [id number] [address] [place] [phone] Nov, 33 weeks gestation of pregna ncy Z3A.33 and Third trimester Z34.93 [facility] [address] [id number] [address] [place] [phone] Nov, [facility] [address] [facility] [id number] [address] [place] [phone] Nov, [place] [address] [address] [facility] [id number] [address] [place] [phone] 12 Nov, 2016 Visit for TB skin test Z11.1 ; 31 weeks gestation of Z3A.31 ; Encounter for immunization Z23 and Third trimester Z34.93 [facility] [address] [facility] [id number] [address] [place] [phone] 15 Oct, 2016 27 weeks gestation of pregna ncy Z3A.27 and Second trimester Z34.92 [place] [address] [facility] [id number] [address] [place] [phone] Sep, Normal in second t rimester Z34.92 ; Abnormal ultrasound O28.3 and 23 weeks gestation of Z3A.23 [place] [address] [address] [facility] [id number] [address] [place] [phone] 18 Sep, [address] [id number] [address] [place] [phone] Aug, [place] [address] [place] [id number] [address] [place] [phone] Aug, Normal in second t rimester Z34.92 and 19 weeks gestation of Z3A.19 [place] [id number] [place] [phone] 07 Aug, 2016 Encounter for dental examina tion and cleaning without abnormal findings Z01.20 [place] [address] [facility] [id number] [address] [place] [phone] Aug, [address] [id number] [address] [place] [phone] Aug, Normal , first Z34. 00 [place] [id number] [address] [place] [phone] Aug, [place] [address] [facility] [id number] [address] [place] [phone] Aug, Dental examination Z01.20 [place] [address] [address] [facility] [id number] [address] [place] [phone] Aug, [facility] [address] [facility] [id number] [address] [place] [phone] July, [facility] [address] [facility] [id number] [address] [place] [phone] July, Normal , first Z34. 00 and 10 weeks gestation of Z3A.10 [place] [address] [address] [facility] [id number] [address] [place] [phone] July, [place] [address] [address] [facility] [id number] [address] [place] [phone] July, Encounter for test Z32.00 IMMUNIZATIONS No Known Immunizations SOCIAL HISTORY Never Assessed REASON FOR VISIT PLAN OF CARE VITAL SIGNS MEDICATIONS Unknown Medications RESULTS No Results PROCEDURES No Known procedures INSTRUCTIONS MEDICATIONS ADMINISTERED No Known Medications MEDICAL (GENERAL) HISTORY Type Description Date Medical History denies Medical History due date 02/14/2017
--- OUTSIDE RECORDS SUMMARY | 2019-08-03 20:41 | XMS REPORT ---
Author Author Debra KENNEDY Organization [facility] Address [address] [place] [address] Care Team Providers Care Mohs Surgeon/General Dermatologist Name Role Phone LILY KENNEDY Unavailable PROBLEMS Unknown Problems ALLERGIES Substance Reaction Event Type Date Status pollen itching Non Drug Allergy Jan, Active ENCOUNTERS Encounter Location Date Diagnosis [facility] [address] [id number] [address] [place] [phone] Jun, [facility] [address] [id number] [address] [place] [phone] May, [facility] [address] [id number] [address] [place] [phone] May, [facility] [address] [id number] [address] [place] [phone] Apr, [facility] [address] [id number] [address] [place] [phone] Mar, care and examinat ion Z39.2 [facility] [address] [id number] [address] [place] [phone] Mar, [facility] [address] [id number] [address] [place] [phone] Jan, [facility] [address] [id number] [address] [place] [phone] Jan, [facility] [address] [id number] [address] [place] [phone] Jan, Third trimester Z3 4.93 ; 40 weeks gestation of Z3A.40 and Irregular contractions O62.2 [facility] [address] [id number] [address] [place] [phone] Jan, [facility] [address] [id number] [address] [place] [phone] Jan, [facility] [address] [id number] [address] [place] [phone] Jan, Third trimester Z3 4.93 and 39 weeks gestation of Z3A.39 [facility] [address] [id number] [address] [place] [phone] Jan, [facility] [address] [id number] [address] [place] [phone] Jan, Third trimester Z3 4.93 and 38 weeks gestation of Z3A.38 [facility] [address] [id number] [address] [place] [phone] Dec, 37 weeks gestation of pregna ncy Z3A.37 and Third trimester Z34.93 [facility] [address] [id number] [address] [place] [phone] Dec, [facility] [address] [id number] [address] [place] [phone] Dec, 36 weeks gestation of pregna ncy Z3A.36 and Third trimester Z34.93 [facility] [address] [id number] [address] [place] [phone] Dec, [facility] [address] [id number] [address] [place] [phone] Dec, 35 weeks gestation of pregna ncy Z3A.35 and Third trimester Z34.93 [facility] [address] [id number] [address] [place] [phone] Nov, 33 weeks gestation of pregna ncy Z3A.33 and Third trimester Z34.93 [facility] [address] [id number] [address] [place] [phone] Nov, [facility] [address] [id number] [address] [place] [phone] Nov, [facility] [address] [id number] [address] [place] [phone] 12 Nov, 2016 Visit for TB skin test Z11.1 ; 31 weeks gestation of Z3A.31 ; Encounter for immunization Z23 and Third trimester Z34.93 [facility] [address] [id number] [address] [place] [phone] 15 Oct, 2016 27 weeks gestation of pregna ncy Z3A.27 and Second trimester Z34.92 [facility] [address] [id number] [address] [place] [phone] 18 Sep, 2016 Normal in second t rimester Z34.92 ; Abnormal ultrasound O28.3 and 23 weeks gestation of Z3A.23 [place] [address] [id number] [address] [place] [phone] 18 Sep, 2016 [place] [address] [id number] [address] [place] [phone] Aug, [place] [address] [id number] [address] [place] [phone] Aug, Normal in second t rimester Z34.92 and 19 weeks gestation of Z3A.19 [place] [address] [id number] [address] [place] [phone] 07 Aug, 2016 Encounter for dental examina tion and cleaning without abnormal findings Z01.20 [place] [address] [id number] [address] [place] [phone] Aug, [place] [address] [id number] [address] [place] [phone] Aug, Normal , first Z34. 00 [place] [address] [id number] [address] [place] [phone] Aug, [place] [address] [id number] [address] [place] [phone] Aug, Dental examination Z01.20 [place] [address] [facility]NOTE 3] [id number] [address] [place] [phone] Aug, [facility] [address] [facility]NOTE 3] [id number] [address] [place] [phone] July, [facility] [address] [facility]NOTE 3] [id number] [address] [place] [phone] July, Normal , first Z34. 00 and 10 weeks gestation of Z3A.10 [facility] [address] [facility]NOTE 3] [id number] [address] [place] [phone] July, [facility] [address] [facility]NOTE 3] [id number] [address] [place] [phone] July, Encounter for test Z32.00 IMMUNIZATIONS No Known Immunizations SOCIAL HISTORY Never Assessed REASON FOR VISIT OB f/u-1 wk---DBennettRN PLAN OF CARE Activity Details Follow Up 1 Week Reason: VITAL SIGNS Height 62 in 2017-01-12 Weight 153 lbs 2017-01-12 Temperature 98.3 degrees Fahrenheit 2017-01-12 Heart Rate 110 bpm 2017-01-12 Respiratory Rate 20 2017-01-12 BMI 27.984 kg/m2 2017-01-12 Blood pressure systolic 138 mmHg 2017-01-12 Blood pressure diastolic 82 mmHg 2017-01-12 MEDICATIONS Medication Instructions Dosage Frequency Start Date End Date Duration S tatus Zyrtec Allergy Active 27-1 MG Active RESULTS Name Result Date Reference Range UA OB DIP (IN HOUSE) 2017-01-12 Glucose negative Protein 1+ PROCEDURES Procedure Date Ordered Result Body Site URINE-NO MICRO Jan 12, 2017 INSTRUCTIONS MEDICATIONS ADMINISTERED No Known Medications MEDICAL (GENERAL) HISTORY Type Description Date Medical History denies Medical History due date 02/14/2017
--- OUTSIDE RECORDS SUMMARY | 2019-08-03 20:41 | XMS REPORT ---
Author Author Debra KENNEDY Organization [facility] Address [address] [place] [address] Care Team Providers Care Room Designer Name Role Phone LILY KENNEDY Unavailable PROBLEMS Unknown Problems ALLERGIES Substance Reaction Event Type Date Status pollen itching Non Drug Allergy Mar, Active ENCOUNTERS Encounter Location Date Diagnosis [facility] [address] [id number] [address] [place] [phone] Jun, [facility] [address] [id number] [address] [place] [phone] May, [facility] [address] [id number] [address] [place] [phone] May, [facility] [address] [id number] [address] [place] [phone] Apr, [facility] [address] [id number] [address] [place] [phone] Mar, care and examinat ion Z39.2 [facility] [address] [id number] [address] [place] [phone] Mar, [facility] [address] [id number] [address] [place] [phone] Jan, [facility] [address] [id number] [address] [place] [phone] Jan, [facility] [address] [id number] [address] [place] [phone] Jan, Third trimester Z3 4.93 ; 40 weeks gestation of Z3A.40 and Irregular contractions O62.2 [facility] [address] [id number] [address] [place] [phone] Jan, [facility] [address] [id number] [address] [place] [phone] Jan, [facility] [address] [id number] [address] [place] [phone] Jan, Third trimester Z3 4.93 and 39 weeks gestation of Z3A.39 [facility] [address] [id number] [address] [place] [phone] Jan, [facility] [address] [id number] [address] [place] [address] Jan, Third trimester Z3 4.93 and 38 weeks gestation of Z3A.38 [facility] [address] [id number] [address] [place] [phone] Dec, 37 weeks gestation of pregna ncy Z3A.37 and Third trimester Z34.93 [facility] [address] [id number] [address] [place] [address] Dec, [facility] [address] [id number] [address] [place] [address] Dec, 36 weeks gestation of pregna ncy Z3A.36 and Third trimester Z34.93 [facility] [address] [id number] [address] [place] [phone] Dec, [facility] [address] [id number] [address] [place] [phone] Dec, 35 weeks gestation of pregna ncy Z3A.35 and Third trimester Z34.93 [facility] [address] [id number] [address] [place] [phone] Nov, 33 weeks gestation of pregna ncy Z3A.33 and Third trimester Z34.93 [facility] [address] [id number] [address] [place] [phone] Nov, [facility] [address] [id number] [address] [place] [phone] Nov, [facility] [address] [id number] [address] [place] [phone] 12 Nov, 2016 Visit for TB skin test Z11.1 ; 31 weeks gestation of Z3A.31 ; Encounter for immunization Z23 and Third trimester Z34.93 [facility] [address] [id number] [address] [place] [phone] 15 Oct, 2016 27 weeks gestation of pregna ncy Z3A.27 and Second trimester Z34.92 [facility] [address] [id number] [address] [place] [phone] 18 Sep, 2016 Normal in second t rimester Z34.92 ; Abnormal ultrasound O28.3 and 23 weeks gestation of Z3A.23 [place] [address] [id number] [address] [place] [address] 18 Sep, 2016 [place] [address] [id number] [address] [place] [phone] Aug, [place] [address] [id number] [address] [place] [address] Aug, Normal in second t rimester Z34.92 and 19 weeks gestation of Z3A.19 [place] [address] [id number] [address] [place] [phone] 07 Aug, 2016 Encounter for dental examina tion and cleaning without abnormal findings Z01.20 [place] [address] [id number] [address] [place] [phone] Aug, [place] [address] [id number] [address] [place] [phone] Aug, Normal , first Z34. 00 [place] [address] [id number] [address] [place] [phone] Aug, [place] [address] [id number] [address] [place] [phone] Aug, Dental examination Z01.20 [place] [address] [facility] [id number] [address] [place] [address] Aug, [facility] [address] [facility] [id number] [address] [place] [phone] July, [facility] [address] [facility] [id number] [address] [place] [phone] July, Normal , first Z34. 00 and 10 weeks gestation of Z3A.10 [facility] [address] [facility] [id number] [address] [place] [phone] July, [facility] [address] [facility] [id number] [address] [place] [phone] July, Encounter for test Z32.00 IMMUNIZATIONS No Known Immunizations SOCIAL HISTORY Never Assessed REASON FOR VISIT post 6 weeks -- lucy stein PLAN OF CARE Activity Details Follow Up 1 Year with Cody for leonidas krishna Reason: VITAL SIGNS MEDICATIONS Medication Instructions Dosage Frequency Start Date End Date Duration S tatus 27-1 MG Not-Lc ing Zyrtec Allergy Active RESULTS No Results PROCEDURES No Known procedures INSTRUCTIONS MEDICATIONS ADMINISTERED No Known Medications MEDICAL (GENERAL) HISTORY Type Description Date Medical History denies Medical History due date 02/14/2017
--- OUTSIDE RECORDS SUMMARY | 2019-08-03 20:41 | XMS REPORT ---
Author Author Debra KENNEDY Organization [facility] Address [address] [place] [address] Care Team Providers Care Tmd Teacher Name Role Phone LILY KENNEDY Unavailable PROBLEMS Type Condition ICD9-CM Code [id number] Code Onset Dates Condition S tatus SNOMED Code Problem Encounter for dental examination and gina aning without abnormal findings Z01.20 Active [id number] ALLERGIES No Information SOCIAL HISTORY Never Assessed PLAN OF CARE VITAL SIGNS MEDICATIONS Unknown Medications RESULTS No Results PROCEDURES No Known procedures IMMUNIZATIONS No Known Immunizations MEDICAL (GENERAL) HISTORY Type Description Date Medical History denies Medical History due date 02/14/2017
--- OUTSIDE RECORDS SUMMARY | 2019-08-03 20:41 | XMS REPORT ---
Author Author Debra KENNEDY Organization [facility] Address [address] [place] [address] Care Team Providers Care Configuration Management Manager Name Role Phone LILY KENNEDY Unavailable PROBLEMS Unknown Problems ALLERGIES No Information ENCOUNTERS Encounter Location Date Diagnosis [facility] [address] [facility] [id number] [address] [place] [phone] Jun, [facility] [address] [facility] [id number] [address] [place] [phone] May, [facility] [address] [facility] [id number] [address] [place] [phone] May, [facility] [address] [facility] [id number] [address] [place] [phone] Apr, [facility] [address] [facility] [id number] [address] [place] [phone] Mar, care and examinat ion Z39.2 [facility] [address] [facility] [id number] [address] [place] [phone] Mar, [facility] [address] [facility] [id number] [address] [place] [phone] Jan, [facility] [address] [facility] [id number] [address] [place] [phone] Jan, [facility] [address] [id number] [address] [place] [phone] Jan, Third trimester Z3 4.93 ; 40 weeks gestation of Z3A.40 and Irregular contractions O62.2 [facility] [address] [facility] [id number] [address] [place] [phone] Jan, [facility] [address] [id number] [address] [place] [phone] Jan, [facility] [address] [facility] [id number] [address] [place] [phone] Jan, Third trimester Z3 4.93 and 39 weeks gestation of Z3A.39 [facility] [address] [facility] [id number] [address] [place] [phone] Jan, [facility] [address] [facility] [id number] [address] [place] [phone] Jan, Third trimester Z3 4.93 and 38 weeks gestation of Z3A.38 [facility] [address] [id number] [address] [place] [phone] Dec, 37 weeks gestation of pregna ncy Z3A.37 and Third trimester Z34.93 [facility] [address] [facility] [id number] [address] [place] [phone] Dec, [facility] [address] [id number] [address] [place] [phone] Dec, 36 weeks gestation of pregna ncy Z3A.36 and Third trimester Z34.93 [facility] [address] [facility] [id number] [address] [place] [phone] Dec, [facility] [address] [facility] [id number] [address] [place] [phone] Dec, 35 weeks gestation of pregna ncy Z3A.35 and Third trimester Z34.93 [facility] [address] [id number] [address] [place] [phone] Nov, 33 weeks gestation of pregna ncy Z3A.33 and Third trimester Z34.93 [facility] [address] [id number] [address] [place] [phone] Nov, [facility] [address] [facility] [id number] [address] [place] [phone] Nov, [place] [address] [facility] [id number] [address] [place] [phone] 12 Nov, 2016 Visit for TB skin test Z11.1 ; 31 weeks gestation of Z3A.31 ; Encounter for immunization Z23 and Third trimester Z34.93 [facility] [address] [facility] [id number] [address] [place] [phone] 15 Oct, 2016 27 weeks gestation of pregna ncy Z3A.27 and Second trimester Z34.92 [place] [address] [facility] [id number] [address] [place] [phone] Sep, Normal in second t rimester Z34.92 ; Abnormal ultrasound O28.3 and 23 weeks gestation of Z3A.23 [place] [address] [facility] [id number] [address] [place] [phone] 18 Sep, [address] [id number] [address] [place] [phone] Aug, [place] [address] [place] [id number] [address] [place] [phone] Aug, Normal in second t rimester Z34.92 and 19 weeks gestation of Z3A.19 [place] [id number] [place] [phone] 07 Aug, 2016 Encounter for dental examina tion and cleaning without abnormal findings Z01.20 [place] [address] [facility] [id number] [address] [place] [phone] Aug, [address] [id number] [address] [place] [phone] Aug, Normal , first Z34. 00 [place] [id number] [address] [place] [phone] Aug, [place] [address] [facility] [id number] [address] [place] [phone] Aug, Dental examination Z01.20 [place] [address] [facility] [id number] [address] [place] [phone] Aug, [facility] [address] [facility] [id number] [address] [place] [phone] July, [facility] [address] [facility] [id number] [address] [place] [phone] July, Normal , first Z34. 00 and 10 weeks gestation of Z3A.10 [facility] [address] [facility] [id number] [address] [place] [phone] July, [facility] [address] [facility] [id number] [address] [place] [phone] July, Encounter for test Z32.00 IMMUNIZATIONS Vaccine Route Administration Date Status TDAP (BOOSTRIX) IM Intramuscular Nov 23, 2016 Administered SOCIAL HISTORY Never Assessed REASON FOR VISIT OB f/u-4 wk -- lucy stein PLAN OF CARE Activity Details Follow Up 2 Weeks. 48-72 hours Reason: VITAL SIGNS Height 62 in 2016-11-23 Weight 145.0 lbs 2016-11-23 Temperature 98.0 degrees Fahrenheit 2016-11-23 BMI 26.521 kg/m2 2016-11-23 Blood pressure systolic 108 mmHg 2016-11-23 Blood pressure diastolic 68 mmHg 2016-11-23 MEDICATIONS Medication Instructions Dosage Frequency Start Date End Date Duration S tatus Zyrtec Allergy Active 27-1 MG Active RESULTS Name Result Date Reference Range UA OB DIP (IN HOUSE) 2016-11-23 Glucose neg Protein trace PROCEDURES Procedure Date Ordered Result Body Site TB INTRADERMAL 2016-11-23 N/A URINE-NO MICRO Nov 23, 2016 TDAP (BOOSTRIX) Nov 23, 2016 TB INTRADERMAL TEST Nov 23, 2016 SINGLE IMMUNIZATION ADMIN Nov 23, 2016 INSTRUCTIONS MEDICATIONS ADMINISTERED No Known Medications MEDICAL (GENERAL) HISTORY Type Description Date Medical History denies Medical History due date 02/14/2017
[2019-08-03] MEDS: IBUPROFEN 600 MG (MOTRIN) TAB PO SCH (21:37)
[2019-08-03] MEDS: DOCUSATE SODIUM 100 MG (COLACE) CAP PO SCH (21:37)
[2019-08-03] MEDS: ACETAMINOPHEN 500 MG TAB (TYLENOL) PO SCH (21:37)
--- NOTE | 2019-08-03 22:00 | NUR ---
Pt. up to the bathroom with nurse assist. Pt. able to void at this time. Tolerated well. Pericare provided. Chux and dermoplast applied to perineum. Pad, underwear, and clean gown put on. Pt. then transferred to wheelchair to be transferred to room.
[2019-08-04 00:09] VITALS: BP 124/60
[2019-08-04] MEDS: IBUPROFEN 600 MG (MOTRIN) TAB PO SCH ×3 (03:46→17:34)
[2019-08-04 04:44] VITALS: BP 123/62
[2019-08-04 05:45] LABS: BASOPHILS % (AUTO) 0 % (0-10); EOSINOPHILS % (AUTO) 0 % (0-10); HEMATOCRIT 23 % (35-52); LYMPHOCYTES # (AUTO) 1.7 X 10^3 (1.0-4.0); LYMPHOCYTES % (AUTO) 16 % (12-44); MEAN CORPUSCULAR HEMOGLOBIN 21 PG (25-34); MEAN CORPUSCULAR HGB CONC 31 G/DL (32-36); MEAN CORPUSCULAR VOLUME 69 FL (80-99); MEAN PLATELET VOLUME 10.8 FL (7.4-10.4); MONOCYTES # (AUTO) 1.3 X 10^3 (0.0-1.0); MONOCYTES % (AUTO) 12 % (0-12); NEUTROPHILS # (AUTO) 7.5 X 10^3 (1.8-7.8); NEUTROPHILS % (AUTO) 72 % (42-75); PLATELET COUNT 221 10^3/uL (130-400); RED CELL DISTRIBUTION WIDTH 16.7 % (10.0-14.5); WHITE BLOOD COUNT 10.5 10^3/uL (4.3-11.0)
[2019-08-04] MEDS: ACETAMINOPHEN 500 MG TAB (TYLENOL) PO SCH ×2 (05:46→14:15)
[2019-08-04 08:40] VITALS: BP 134/77
--- NOTE | 2019-08-04 08:40 | NUR ---
initial shift assessment completed, see interventions for further. POC reviewed, states understanding.
--- NOTE | 2019-08-04 09:46 | Anesthesia-Regional Post-Op ---
Regional Patient Condition Mental Status: Alert, Oriented x3 Circulation: Same as Pre-Op Headache: Absent Sensation: Full Recovery Motor Block: Absent Post Op Complications Complications None Follow Up Care/Instructions Patient Instructions None needed. Anesthesia/Patient Condition Patient is doing well, no complaints, stable vital signs, no apparent adverse anesthesia problems. No complications reported per nursing. NELLY GOMEZ CRNA August 04, 2019 09:45
[2019-08-04] MEDS: FERROUS SULF 325 MG (IRON) TAB PO SCH (11:01)
[2019-08-04] MEDS: DOCUSATE SODIUM 100 MG (COLACE) CAP PO SCH ×2 (11:01→20:05)
--- NOTE | 2019-08-04 11:01 | NUR ---
pt up to shower.
--- NOTE | 2019-08-04 12:25 | Progress Note ---
Subjective Subjective/Events-last exam Afebrile, denies concerns. Bleeding minimal. Denies headache, chest pain. Objective Exam Last Set of Vital Signs Vital Signs Date Time Temp Pulse Resp B/P (MAP) Pulse Ox O2 Delivery O2 Flow Rate FiO2 08/04/19 08:40 37.1 93 18 134/77 (96) 97 Room Air Capillary Refill : Less Than 3 Seconds I&O Intake and Output 08/04/19 00:00 Intake Total 3000 ml Balance 3000 ml Intake IV Total 3000 ml Daily Weight Change No General: Alert, No Acute Distress Lungs: Clear to Auscultation, Normal Air Movement Heart: Regular Rate, No Murmurs Abdomen: Other (fundus firm at umbilicus, nontender) Extremities: Other (edema) Neuro: Normal Speech Psych/Mental Status: Mental Status NL Results/Procedures Lab Laboratory Tests 08/04/19 05:05: White Blood Count 10.5, Red Blood Count 3.27L, Hemoglobin 7.0L, Hematocrit 23L, Mean Corpuscular Volume 69L, Mean Corpuscular Hemoglobin 21L, Mean Corpuscular Hemoglobin Concent 31L, Red Cell Distribution Width 16.7H, Platelet Count 221, Mean Platelet Volume 10.8H, Neutrophils (%) (Auto) 72, Lymphocytes (%) (Auto) 16, Monocytes (%) (Auto) 12, Eosinophils (%) (Auto) 0, Basophils (%) (Auto) 0, Neutrophils # (Auto) 7.5, Lymphocytes # (Auto) 1.7, Monocytes # (Auto) 1.3H, Eosinophils # (Auto) 0.0, Basophils # (Auto) 0.0 Assessment/Plan Assessment/Plan (1) Spontaneous vaginal delivery Status: Resolved Assessment & Plan: Routine care (2) anemia Status: Acute Assessment & Plan: Asymptomatic, iron sulfate daily. (3) Gestational hypertension Status: Resolved Assessment & Plan: BP improved, monitor. Clinical Quality Measures DVT/VTE Risk/Contraindication: Risk Factor Score Per Nursin RFS Level Per Nursing on Admit: 2=Moderate MADAN KELLEY MD August 04, 2019 12:25
[2019-08-04] MEDS ORDERED: DOCU100C37 PO ×2 (12:40)
[2019-08-04] MEDS ORDERED: FERR325T18 PO ×2 (12:40)
[2019-08-04] MEDS ORDERED: IBUP-1773 PO ×2 (12:40)
[2019-08-04 17:34] VITALS: BP 122/71
--- NOTE | 2019-08-04 17:40 | NUR ---
stork meal served.
[2019-08-04 22:52] VITALS: BP 129/78
[2019-08-05] MEDS: ACETAMINOPHEN 500 MG TAB (TYLENOL) PO SCH ×2 (00:21→09:08)
[2019-08-05] MEDS: IBUPROFEN 600 MG (MOTRIN) TAB PO SCH ×2 (00:22→09:08)
[2019-08-05 01:55] VITALS: BP 128/70
--- NOTE | 2019-08-05 06:33 | Discharge Summary ---
Discharge Summary Hospital Course Problems/Diagnosis: (1) Spontaneous vaginal delivery Status: Resolved Resolution Date/Time: 08/04/19 @ 12:25 Assessment & Plan: Routine care (2) anemia Status: Acute Assessment & Plan: Asymptomatic, iron sulfate daily. (3) Gestational hypertension Status: Resolved Resolution Date/Time: 08/04/19 @ 12:24 Assessment & Plan: BP improved, monitor. Hospital Course Date of Admission: August 03, 2019 at 10:15 Admission Diagnosis : Family Physician/Provider: Lois Ross MD Date of Discharge: 08/05/19 Discharge Diagnosis: See problem list Hospital Course: Pt admitted for IOL due to gestational HTN. Uncomplicated labor, delivery and course with normal BP. Labs and Pending Lab Test: Home Meds Active Docusate Sodium 100 Mg Capsule 100 Mg PO DAILY Ibuprofen 600 Mg Tablet 600 Mg PO Q6H PRN Ferrous Sulfate 325 Mg Tablet 325 Mg PO BID WITH MEALS Reported Prena1 Chew Tablet ( Comb No.42/Folic Acid) 1.4 Mg Tab.ch.bph 1.4 Mg PO DAILY Assessment/Pt DC Instructions See problem list Discharge Diet: Regular Diet Activity as Tolerated: Yes (avoid strenous activity x 6 weeks) Discharge Physical Examination Allergies: Coded Allergies: No Known Drug Allergies (Unverified , 01/26/17) General Appearance: No Apparent Distress, WD/WN Respiratory: Lungs Clear, Normal Breath Sounds Cardiovascular: Regular Rate, Rhythm, No Murmur Gastrointestinal: Other (fundus firm below umbilicus, nontender) Neurologic/Psychiatric: Alert, Normal Mood/Affect Clinical Quality Measures DVT/VTE Risk/Contraindication: Risk Factor Score Per Nursin RFS Level Per Nursing on Admit: 2=Moderate MADAN KELLEY MD August 05, 2019 06:32
[2019-08-05 09:06] VITALS: BP 135/68
[2019-08-05] MEDS: FERROUS SULF 325 MG (IRON) TAB PO SCH (09:08)
[2019-08-05] MEDS: DOCUSATE SODIUM 100 MG (COLACE) CAP PO SCH (09:08)
--- NOTE | 2019-08-05 09:10 | NUR ---
PT UP IN ROOM. VS OBTAINED. MEDS GIVEN PO; SEE EMAR FOR FURTHER. PT FILLING OUT CERTIFICATE PAPERS, WILL RETURN SHORTLY TO REVIEW DISCHARGE PAPERS; PT VERBALIZES UNDERSTANDING. CALL LIGHT WITHIN REACH.
--- NOTE | 2019-08-05 09:25 | NUR ---
DISCHARGE PAPERS PROVIDED AND REVIEWED WITH PT, PT VERBALIZES UNDERSTANDING AND DENIES ANY NEEDS OR QUESTIONS AT THIS TIME. PAPER SIGNED.
--- NOTE | 2019-08-05 10:45 | NUR ---
PT DISCHARGED FROM -[facility] TO [facility] AMBULATORY IN STABLE CONDITION ACC BY S/O AND Chantelle BOBBY RN.
== END 2019-08-05 10:45 | disposition home or self-care (01) | DRG 807 ==
LOC: LDRP 10:02 → WSo 10:02 → LDRP 10:15
PROVIDERS: ADMIT Family Medicine; ATTEND Family Medicine
PROC: 10E0XZZ Delivery of Products of Conception, External Approach (ICD-10-PCS; principal; 2019-08-03)
PROC: 0KQM0ZZ Repair Perineum Muscle, Open Approach (ICD-10-PCS; 2019-08-03)
PROC: 3E033VJ Introduction of Other Hormone into Peripheral Vein, Percutaneous Approach (ICD-10-PCS; 2019-08-03)
DX: O13.4 Gestational [pregnancy-induced] hypertension without significant proteinuria, complicating childbirth (principal); Z37.0 Single live birth; O70.1 Second degree perineal laceration during delivery; O69.81X0 Labor and delivery complicated by cord around neck, without compression, not applicable or unspecified; O90.81 Anemia of the puerperium; Z3A.39 39 weeks gestation of pregnancy
CPT/HCPCS: 36415; 85025; 86850; 86900; 86901; 99212